=== PATIENT | female | born 1955 | race African-American/Black ===

== ENCOUNTER → 2023-06-18 13:22 | Outpatient (REF) | payer OTHER, SELFPAY | LOC: RAD 13:22 | PROVIDERS: ATTENDING PHYSICIAN Surgery Vascular Surgery; FAMILY PHYSICIAN Physician Assistant Medical | DX: I73.9 Peripheral vascular disease, unspecified (principal); I65.23 Occlusion and stenosis of bilateral carotid arteries | CPT/HCPCS: 93880; 93922; 93925 ==

== ENCOUNTER → 2023-07-16 06:42 | Outpatient (REF) | payer OTHER, SELFPAY | LOC: RCS 06:42 | PROVIDERS: ATTENDING PHYSICIAN Internal Medicine Cardiovascular Disease; FAMILY PHYSICIAN Physician Assistant Medical | DX: I70.90 Unspecified atherosclerosis (principal); R01.1 Cardiac murmur, unspecified; Z01.810 Encounter for preprocedural cardiovascular examination | CPT/HCPCS: 93306 ==

== ENCOUNTER 2023-08-01 07:28 | Inpatient (IN) | payer OTHER, SELFPAY ==
[2023-07-26 09:11] VITALS: BMI 24.0
[2023-07-26 09:47] LABS: % Basophils 1.9 % (0-2); % Eosinophils 3.7 % (0-6); % Immature Granulocytes 0.2 % (0-0.5); % Lymphocytes 45.9 % (20.5-51.1); % Monocytes 9.3 % (1.7-9.3); Absolute Basophils 0.1 10^3/uL (0-0.2); Absolute Eosinophils 0.2 10^3/uL (0-0.7); Absolute Lymphocytes 2.2 10^3/uL (1.2-3.4); Absolute Monocytes 0.5 10^3/uL (0.1-0.6); Absolute Neutrophils 1.9 10^3/uL (1.4-6.5); Hematocrit 37.3 % (37.0-47.0); Hemoglobin 11.8 g/dL (12.0-16.0); Mean Corp Hgb Conc. 31.6 g/dL (33.0-37.0); Mean Corpuscular Hgb 23.9 pg (27.0-31.0); Mean Corpuscular Volume 75.5 fL (81.0-99.0); Mean Platelet Volume 10.4 fL (7.4-10.4); Nucleated Red Blood Cells % 0 %; Platelet Count 345 10^3/uL (130-400); Red Blood Cell Count 4.94 10^6/uL (4.20-5.40); Red Cell Dist. Width 15.5 % (11.5-14.5); White Blood Cell Count 4.9 10^3/uL (4.8-10.8)
[2023-07-26 09:57] LABS: Blood Urea Nitrogen 19 mg/dl (7-17); Calcium 9.3 mg/dl (8.4-10.2); Carbon Dioxide 27 mmol/L (22-30); Chloride 107 mmol/L (98-107); Estimated Creatinine Clearance 33 ml/min; Glucose 105 mg/dl (70-99); Potassium 4.9 mmol/L (3.5-5.1); Sodium 142 mmol/L (135-145); eGFR 49.92
[2023-07-26 10:16] LABS: INR 1.02; PT 13.4 Sec (11.4-14.6)
[2023-08-01] VITALS (22 sets, daily range): BP systolic 85–177; BP diastolic 51–86; BMI 24.5
--- NOTE | 2023-08-01 08:49 | W.SUR.PREOP ---
Pre-Operative Surgical Note
-
I have examined this patient prior to the performance of the scheduled procedure.
The patient's condition is unchanged from the time of the current History and
Physical and the patient is able to undergo the scheduled procedure.
[2023-08-01] MEDS: BACTROBAN NASAL 1 GRAM NASAL (08:53)
[2023-08-01] MEDS: PERIDEX 0.12% ORAL RINSE 15 ML PO (08:53)
[2023-08-01] MEDS: VANCOCIN 200 IV (08:54)
[2023-08-01] MEDS: NSS 167 ML IV (09:02)
[2023-08-01 10:12] LABS: ACT-LR - POC 276 Seconds (116-155)
--- NOTE | 2023-08-01 11:05 | W.SUR.POST ---
Surgical Immediate Post Op
Note
Pre Op Diagnosis: Carotid stenosis
Post Op Diagnosis: Carotid stenosis
Procedure Performed: Transcarotid artery revascularization
Primary Surgeon: Efren Costello MD
fleet administrative assistant: RICHARD Snell
Anesthesia: GETA
Estimated Blood Loss: 20ml
Fluids: See anesthesia flowsheet
Drains/Shunts: N/A
Specimens/Cultures: N/A
Doppler/Duplex/Angio (Y/N): Y
Complications: None
Operative Findings: Successful deployment of carotid stent x2
[2023-08-01] MEDS: NEO-SYNEPHRINE 250 IV (11:49)
[2023-08-01] MEDS: NSS 1000 IV ×2 (11:55→23:57)
[2023-08-01 11:56] LABS: Hematocrit 32.5 % (37.0-47.0); Hemoglobin 10.1 g/dL (12.0-16.0); Mean Corp Hgb Conc. 31.1 g/dL (33.0-37.0); Mean Corpuscular Hgb 23.9 pg (27.0-31.0); Mean Platelet Volume 9.7 fL (7.4-10.4); Platelet Count 269 10^3/uL (130-400); Red Blood Cell Count 4.22 10^6/uL (4.20-5.40); Red Cell Dist. Width 15.2 % (11.5-14.5); White Blood Cell Count 3.8 10^3/uL (4.8-10.8)
[2023-08-01 12:06] LABS: Blood Urea Nitrogen 24 mg/dl (7-17); Calcium 7.8 mg/dl (8.4-10.2); Carbon Dioxide 22 mmol/L (22-30); Chloride 109 mmol/L (98-107); Estimated Creatinine Clearance 40 ml/min; Glucose 109 mg/dl (70-99); Potassium 4.4 mmol/L (3.5-5.1); Sodium 137 mmol/L (135-145); eGFR > 60.00
[2023-08-01 13:50] LABS: Magnesium 1.9 mg/dl (1.6-2.3)
--- NOTE | 2023-08-01 14:07 | PTCARENOTE ---
1250-Received pt from PACU via bed.Pt is awake and alert.speech is appropriate.Tongue is midline.+5/5 POZO noted.MARIANNA 3mm.Denies pain.Positioned for comfort.SR noted.IVF and Phenylephrine gtts infusing.Right A Line intact.POX 94% RA.Lungs
CTA.Declines po intake at this time.No void at this time.Right groin dressing intact without drainage.Left neck incision intact with surgical adhesive.Pt's spouse at bedside.Plan of care discussed.
[2023-08-01] MEDS: TYLENOL 650 MG PO (14:34)
--- NOTE | 2023-08-01 14:35 | CON.INTV ---
Documented by User: Kathy Ayala, Resident, 08/01/23 16:25
Consultation
Consultation Request
Date/Time Consultation Requested: 08/01/2023
Date/Time Consultation Performed: 08/01/2023
Requesting Provider:
Performing Provider:
Reason for Consultation: s/p Transcarotid artery revascularization
Medical History
-
Chief Complaint: s/p Transcarotid artery revascularization
History of Present Illness:
Mr.Antonell Heath is a 68-year-old female patient that is admitted for a scheduled left transcarotid artery revascularization on 08/01/2023.
Past Medical History
Past Medical History: Other (See A&P for PMH and PSH)
Social History
Tobacco: Former Smoker
Personal:
Living: With Family
Family History
Family History: CAD (Father: Cerebral aneurysm, mother: CVA)
Allergies / Home Medications
Allergies
Allergy/AdvReac Type Severity Reaction Status Date / Time
diphenhydramine HCl Allergy Rash Verified 08/01/23 08:31
[From Benadryl]
latex [Latex] Allergy Rash Verified 08/01/23 08:31
levofloxacin [From Levaquin] Allergy Shortness Verified 08/01/23 08:31
of Breath
Penicillins Allergy Shortness Verified 08/01/23 08:31
of Breath
Home Medications
�Medication �Instructions �Recorded �Confirmed �Last Taken �Type
aspirin 81 mg tablet,delayed 81 mg PO DAILY 11/13/17 08/01/23 08/01/23 07:00 History
release (Adult Low Dose Aspirin)
docusate sodium 100 mg capsule 100 mg PO DAILY PRN constipation 11/13/17 08/01/23 Unknown History
(Colace)
hydrochlorothiazide 12.5 mg capsule 12.5 mg PO DAILY 11/13/17 08/01/23 07/30/23 07:00 History
metoprolol tartrate 50 mg tablet 50 mg PO BID 11/13/17 08/01/23 08/01/23 07:00 History
spironolactone 50 mg tablet 50 mg PO DAILY 11/13/17 08/01/23 08/01/23 07:00 History
multivitamin 1 tab PO DAILY 07/24/23 08/01/23 07/25/23 07:00 History
risedronate 150 mg tablet 150 mg PO QMONTH 07/24/23 07/24/23 Unknown History
clopidogrel 75 mg tablet (Plavix) 75 mg PO DAILY 08/01/23 08/01/23 08/01/23 07:00 History
diclofenac sodium 1 % topical gel 2 g topical QID PRN leg pain 08/01/23 08/01/23 07/23/23 08:00 History
(Voltaren Arthritis Pain)
rosuvastatin 10 mg tablet 10 mg PO DAILY 08/01/23 08/01/23 08/01/23 07:00 History
Review of Systems
-
Unable to Obtain full review of systems at this time due to: Other (Negative unless stated otherwise)
Vitals / Labs / Diagnostic Testing
Vital Signs
Temp Pulse Resp BP Pulse Ox
97.5 F 62 11 125/72 98
08/01/23 13:19 08/01/23 12:30 08/01/23 12:30 08/01/23 12:30 08/01/23 14:00
Lab Data
08/01/23 11:47
08/01/23 11:47
Diagnostic Testing:
Physical Exam
-
HEENT: Normocephalic
Cardiovascular: S1/S2
Respiratory: Clear
GI: Soft, Non Distended and Non Tender
Neurology: Awake and Alert
General: Comfortable
Assessment
-
ASSESSMENT: Mr.Antonell Heath is a 68-year-old female patient that is admitted for a scheduled left transcarotid artery revascularization with stent on 08/01/2023.
IMPRESSION:
S/P left transcarotid artery revascularization with stent on 07/31
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
Hypertension (multidrug and resistant)
Hepatitis C�treated
Hypercholesterolemia
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
Lower extremity claudication
History of PRBC transfusion
Osteoarthritis
Bilateral carpal carotid artery stenosis
Hyperkalemia
PAD
Hypertensive retinopathy
Bilateral hip DJD
Thyroid nodule
Cervical spine herniation
C3-C4 fusion
PLAN:
Postop CXR: Decreased lung volume, increased trending in the medial left lung base
Normal preop spirometry 07-17-23
Chest x-ray today reviewed, no acute findings, interval extubation
O2 protocol
IS protocol
Pressors/antihypertensive/inotropes/diuretics will be provided as needed
Monitor hemoglobin
Monitor platelet count and coags
Transfuse blood product if needed
Monitor blood sugar
Insulin drip per protocol
Aspiration precautions
DVT prophylaxis
Early nutrition
Early mobilization

Documented by User: Troy Montero MD 08/02/23 07:18
Medical History
-
History of Present Illness:
Mr.Antonell Heath is a 68-year-old female patient that is admitted for a scheduled left transcarotid artery revascularization on 08/01/2023.
Received above intervention with no issue
Seen at ICU with Dr Costello
Patient recovered from anesthesia. Denies major complaints x for mild incisional L neck pain
Social History
Alcohol: None
Drug: None
Review of Systems
-
Cardiac: Other (L incisional pain)
Physical Exam
-
Cardiovascular: Murmur (n), Peripheral Edema (n) and Other (L neck surgical wound)
Respiratory: Non-Labored Respirations
Neurology: AO x 3 and No Motor Deficits
Skin: Warm
Assessment
-
ASSESSMENT:
Mrs Ángel Heath is a 68-year-old female patient that is admitted for a scheduled left transcarotid artery revascularization with stent on 08/01/2023.
IMPRESSION:
S/P left transcarotid artery revascularization with stent on 07/31
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
Hypertension (multidrug and resistant)
Hepatitis C�treated
Hypercholesterolemia
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
Lower extremity claudication
History of PRBC transfusion
Osteoarthritis
Bilateral carpal carotid artery stenosis
Hyperkalemia
PAD
Hypertensive retinopathy
Bilateral hip DJD
Thyroid nodule
Cervical spine herniation
C3-C4 fusion to
PLAN:
Postop CXR: Decreased lung volume, increased trending in the medial left lung base
Normal preop spirometry 07-17-23
Chest x-ray today reviewed, no acute findings, interval extubation after surgery
O2 protocol
IS protocol
Asp precs
Pressors/antihypertensive/inotropes/diuretics will be provided as needed
Monitor hemoglobin
Monitor platelet count and coags
Transfuse blood product if needed
Monitor blood sugar
Insulin drip per protocol
DVT prophylaxis
Early nutrition
Early mobilization
D/w Dr Costello, patient and at bedside
Critical care time: 35 min
ATTENDING PHYSICIAN ATTESTATION:
(Initial Visit:)
I personally saw and evaluated the patient along with the Resident Dr Ayala.
Discussed with Resident and discussed in rounds with MDT.
I agree with Resident�s findings and plan as documented in the resident�s note, which was edited by myself.
--- NOTE | 2023-08-01 14:43 | PTCARENOTE ---
Pt c/o slight left neck pain.Requested and received Tylenol.
--- NOTE | 2023-08-01 15:05 | PTCARENOTE ---
Pt has not voided and does not feel the need to void at this time.Bladder scanned 478 ml.Pt requested an hour to wait until she attempts to void.
--- NOTE | 2023-08-01 15:35 | OR.RPT ---
Addendum entered and electronically signed by Efren Costello MD 08/01/23 15:37:
Addendum: Fluoroscopy time 8.7 minutes, 52 mGy, DAP 8.92.
Original Note:
Operative Report
Operative Report
PROCEDURE DATE: 08/01/2023
Preoperative diagnosis: Severe heavily calcified left internal carotid artery near occlusive stenosis.
Postoperative diagnosis: same
Procedure:
1. Open exposure of left common carotid artery.
2. Transcarotid left carotid artery revascularization with stent (TCAR) with Enroute 9mm x 40mm self-expanding stent, and utilizing Enroute TIGHT ROPE WALKER flow reversal intraprocedural neuro protection (and involving concomitant right common femoral vein
percutaneous access).
3. Intraoperative EEG/SSEP monitoring.
4. Supervision and interpretation
CPT code 22722, SVS VQI TCAR #[id number]
ICD10 PCS Code [id number], [id number]
Surgeon: Pravin
Director Medical: SHERRELL Fermin required for all aspects of procedure including assistance with traction/countertraction, following of suture line, assistance with closure.
Complications: None
Anesthesia: General
Indications for procedure:
Severe progressive left internal carotid artery stenosis. Due to high bifurcation, extensive length of lesion, was very high risk for surgical revascularization from an anatomic standpoint. Therefore discussed TCAR. Risk/benefits/alternatives
were also discussed. Patient understood all wish to proceed.
Description of procedure:
Patient was identified brought to the operating room placed on the table in supine position. After the adequate administration of anesthesia and perioperative antibiotics she was prepped and draped in the standard surgical fashion. A standard
preoperative timeout was undertaken and everybody was in agreement the plan. A longitudinal incision was made at the base of the left neck between the heads of the sternocleidomastoid muscle just superior to the clavicle. This incision was carried
through the skin subcutaneous tissue. Using the electrocautery dissection was carried through the platysma muscle layer and then in the plane between the heads of the sternocleidomastoid muscle. Then using a combination of sharp dissection with
the Metzenbaum scissors and electrocautery I dissected along the anterior medial border of the internal jugular vein. The common carotid artery was identified and carefully dissected away from the surrounding structures take great care to avoid any
injury to the structures. A vessel loop was passed around it. The common carotid artery was dissected circumferentially only in the proximal portion of the exposed artery, and the anterior surface was dissected for another 2 cm. Next, a 5-0
Prolene pursestring stitch was placed on the anterior middle surface of the common carotid artery at the anticipated puncture/cannulation site. The patient was now given 5500 units of intravenous heparin.
Next, the right common femoral vein was punctured with a micropuncture kit under direct duplex ultrasound guidance. An 8 German venous sheath was placed over 0.035 inch wire into the vein. The sheath was flushed. Note fluoroscopy was used to
confirm wire advancement within the venous system.
Next, while maintaining anterior tension on the vessel loop (single looped), the left common carotid artery was punctured within the pursestring with a micropuncture needle (premarked) to only 1 cm and a premarked 0.014 inch wire was inserted and
then the needle was exchanged out for a premarked micropuncture sheath and advanced to 3 cm janeth. The dilator and wire were then removed. Left anterior oblique angiogram was performed. This delineated the carotid bifurcation. It confirmed the
severe stenosis in the proximal internal carotid artery. The carotid bifurcation was marked on the screen. I then advanced a 0.035 inch wire with a J curve at the tip. This was stopped just short of the bifurcation. I then exchanged the
micropuncture sheath out for the [address] sheath, which was advanced to the footplate under fluoroscopy with careful vigilance of the distal tip of the wire. Once advanced to the footplate, the introducer and wire were removed.
The tension from the vessel loop was released. And the sheath was secured to the skin with silk suture. The sheath was burped back and also flushed carefully. Next repeat imaging was undertaken confirming the best angulation of the gantry for
imaging. At this point, the angioplasty balloon and stent were prepared. We pause to confirm the plan regarding balloon/stent, and confirmed adequate ACT 270. Next, I connected the arterial sheath to the venous sheath with the filter section. As
such passive flow reversal was initiated. There were no evidence of any EEG or SSEP changes.
At this point given that we were otherwise ready, I tightened my double looped vessel loop on the common carotid artery thereby initiating active flow reversal. I have confirmed optimization of the blood pressure with my anesthesiology colleagues.
Glycopyrrolate had been given to mitigate any bulb angioplasty related bradycardia. Again I flushed the venous sheath to confirm active flow reversal. There was no EEG or SSEP changes. I now used a precurved 0.014 inch wire and roadmap assisted
fluoroscopy guidance to cannulate the internal carotid artery carefully. I was able to gain access into the distal cervical/proximal intracranial internal carotid artery. Next I used a balloon which was a 5 mm x 30 mm Viatrac standard angioplasty
balloon. I then pre-angioplastied the stenosis. I then quickly exchanged out my balloon catheter for the stent (9mm x 40mm Enroute stent). The stent was positioned under roadmap guidance. When I was happy with the positioning I then unsheathed
in the standard fashion. The stent delivery device was then attempted to be removed. However, I could not remove the delivery device as it was either caught on the stent or some plaque. I therefore reached sheath the delivery device. I tried
applying pressure to the neck, and then counterpressure from the other side, and then pulled fairly forcefully and was able to finally get it out. Post angioplasty was performed with a 5 mm x 20 mm angioplasty balloon. Completion angiography was
undertaken after 1 to 2 minutes of waiting after deployment of the stent for the flow reversal to take effect. Completion angiogram demonstrated excellent result in AP projection, but in the oblique projection it appeared that the stent was still
somewhat compressed which was not surprising due to the bulk of the plaque. Therefore, I then used a 6 mm x 20 mm angioplasty balloon to postangioplasty. Following this angiography demonstrated significant improvement. Good intracranial filling
was noted. At this point I was very satisfied. The 0.014 inch wire was then removed from the internal carotid artery. Next, the common carotid artery was unclamped. Finally I disconnected the flow reversal circuit.
Now, I tied down my 5-0 Prolene pursestring suture on the common carotid artery while removing the sheath. We gave protamine to reverse the heparin. I irrigated the incision site and confirmed full hemostasis. Then, we closed in layers using
single [id number] 2-0 Vicryl to reapproximate the sternocleidomastoid heads. Then used 3-0 Vicryl platysma muscle running layer followed by 4 Monocryl subcuticular running stitch. Dermabond was applied. The femoral vein sheath was also
removed and manual pressure was applied to that site and hemostasis was noted there as well. The patient tolerated the procedure well. She awoke moving all 4 extremities to command.
--- NOTE | 2023-08-01 16:09 | PTCARENOTE ---
Pt assessed.Awake and alert.SR noted.IVF and Phenylephrine gtt infusing.Pt unable to void.Fatima placed for acute retention as ordered.Draining yellow urine.
[2023-08-01] MEDS: LOPRESSOR 50 MG PO (20:57)
[2023-08-01] MEDS: HEPARIN 5000 UNITS SC (20:57)
[2023-08-02] VITALS (7 sets, daily range): BP systolic 102–153; BP diastolic 56–67; PULSE 80; BMI 24.8
[2023-08-02 05:30] LABS: Hematocrit 29.8 % (37.0-47.0); Hemoglobin 9.6 g/dL (12.0-16.0); Mean Corp Hgb Conc. 32.2 g/dL (33.0-37.0); Mean Corpuscular Hgb 23.9 pg (27.0-31.0); Mean Corpuscular Volume 74.3 fL (81.0-99.0); Mean Platelet Volume 10.1 fL (7.4-10.4); Platelet Count 293 10^3/uL (130-400); Red Blood Cell Count 4.01 10^6/uL (4.20-5.40); Red Cell Dist. Width 15.4 % (11.5-14.5); White Blood Cell Count 8.6 10^3/uL (4.8-10.8)
[2023-08-02 05:45] LABS: APTT 27.6 Sec (23.4-35.0); INR 1.19; PT 15.1 Sec (11.4-14.6)
[2023-08-02 05:46] LABS: Blood Urea Nitrogen 19 mg/dl (7-17); Calcium 8.3 mg/dl (8.4-10.2); Carbon Dioxide 18 mmol/L (22-30); Chloride 113 mmol/L (98-107); Estimated Creatinine Clearance 44 ml/min; Glucose 134 mg/dl (70-99); Potassium 4.5 mmol/L (3.5-5.1); Sodium 138 mmol/L (135-145); eGFR > 60.00
--- NOTE | 2023-08-02 07:38 | W.PN.VS ---
Addendum entered and electronically signed by Efren Costello MD 08/02/23 09:27:
Seen and examined with HSERRELL Fermin. Agree with findings as noted below. Patient without significant complaints. Left neck small incision is clean dry and intact. No hematoma. Abdomen is soft. Right groin puncture site flat, no hematoma.
Neurologically no focal deficits. Moves all extremities well. Plan/as discussed and noted below.
Original Note:
Today's Communication / Plan
-
Seen and assessed with Dr. Costello
Assessment/Plan
-
POD #1 left TCAR
Plan:
-DC A-line
-DC Fatima
-Out of bed/ambulate
-Regular diet
-Patient may DC later today if continues to do well
Subjective Data
-
Date of Service: August 02, 2023
Patient seen at bedside this a.mSamantha Costello. Patient offers no complaints at this time. No events overnight
Objective Data
-
Vital Signs
Temp Pulse Resp BP Pulse Ox
97.8 F 65 9 135/59 99
08/01/23 23:44 08/02/23 06:30 08/02/23 06:30 08/01/23 20:57 08/02/23 06:30
Intake and Output
08/01/23 08/02/23 08/03/23
06:59 06:59 06:59
Intake Total 2052.8 / 2052.8
Output Total 1773 / 1773
Balance 279.8 / 279.8
Intake:
Oral fluids 240 / 240
IV fluids (Total) 1612.8 / 1612.8
NSS 267 / 267
Nss 1,000 ml @ 80 mls/hr IV . 1280 / 1280
[id number] DARRIUS Rx#:[id number]
Phenylephrine 65.8 / 65.8
IV piggybacks 200 / 200
Output:
Urine, Fatima 177 / 177
Lab Results
08/02/23 05:07
08/02/23 05:07
Calcium 8.3 mg/dl (8.4-10.2) L 08/02/23 05:07
Magnesium 1.9 mg/dl (1.6-2.3) 08/01/23 11:47
Physical Exam
-
AAOx3
No tachypnea
No tachycardia
Neck site clean, dry, intact, soft, no drainage noted
Follows all commands
Face symmetrical, tongue midline
--- NOTE | 2023-08-02 08:07 | W.PN.INTV ---
Today's Communication / Plan
Recommendations
Dispo
Assessment
-
ASSESSMENT:
Mrs Ángel Heath is a 68-year-old female patient that is admitted for a scheduled left transcarotid artery revascularization with stent on 08/01/2023.
IMPRESSION:
S/P left transcarotid artery revascularization with stent on 07/31
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
Hypertension (multidrug and resistant)
Hepatitis C�treated
Hypercholesterolemia
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
Lower extremity claudication
History of PRBC transfusion
Osteoarthritis
Bilateral carpal carotid artery stenosis
Hyperkalemia
PAD
Hypertensive retinopathy
Bilateral hip DJD
Thyroid nodule
Cervical spine herniation
C3-C4 fusion to
PLAN:
Postop CXR: Decreased lung volume, increased trending in the medial left lung base
Normal preop spirometry 07-17-23
Chest x-ray today reviewed, no acute findings, interval extubation after surgery
O2 protocol
IS protocol
Asp precs
Pressors/antihypertensive/inotropes/diuretics will be provided as needed
Monitor hemoglobin
Monitor platelet count and coags
Transfuse blood product if needed
Monitor blood sugar
Insulin drip per protocol
DVT prophylaxis
Early nutrition
Early mobilization
D/w Dr Costello, patient and at bedside 07-31
[facility], likely to d/c today
Subjective Dataa
Subjective Data
Date of Service:
Date of Service: August 02, 2023
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
Subjective:
No major events reported overnight
Remains hemodynamically and respiratory nunn stable
Remains on room air
Denies major complaints
Looking forward to discharge today
Review of Systems
General: Fever (n), Sweats (n), Chills (n) and Satisfactory Appetite
Cardiopulmonary: Dyspnea (n), Cough (n), Wheezing (n), Chest Pain (n) and Edema (n)
GI: Abdominal Pain (n), Nausea (n) and Vomiting (n)
Neuro: Numbness (n)
Genitourinary: Hematuria (n)
Objective Data
Data Reviewed
Vital Signs / I&O / Oxygen:
Vital Signs
Temp Pulse Resp BP Pulse Ox
98.1 F 65 9 135/59 99
08/02/23 07:55 08/02/23 06:30 08/02/23 06:30 08/01/23 20:57 08/02/23 06:30
Intake and Output
08/01/23 08/02/23 08/03/23
06:59 06:59 06:59
Intake Total 2052.8 / 2052.8
Output Total 1773 / 1773
Balance 279.8 / 279.8
SaO2 99
Nasal Cannula flow liters per 2
minute
Physical Exam
General: Comfortable
HEENT: Normocephalic and Moist Mucous Membranes
Cardiovascular: Regular Rhythm, Murmur (n), Peripheral Edema (n) and Calf Tenderness (n)
Respiratory: Clear, Non-Labored Respirations and Stridor (n)
GI: Soft, Non Distended and Non Tender
Neurology: Awake, AO x 3 and No Motor Deficits
Skin: Warm
Labs/Micro/Reports
Lab Data
08/02/23 05:07
08/02/23 05:07
Laboratory Results
08/02/23 08/02/23
00:15 05:07
PT Cancelled 15.1 H
INR Cancelled 1.19
APTT Cancelled 27.6
[2023-08-02] MEDS: LOPRESSOR 50 MG PO (08:11)
[2023-08-02] MEDS: ASPIR LOW (ENTERIC COATED) 81 MG PO (08:12)
[2023-08-02] MEDS: ORETIC 12.5 MG PO (08:12)
[2023-08-02] MEDS: CRESTOR 10 MG PO (08:12)
[2023-08-02] MEDS: ALDACTONE 50 MG PO (08:12)
[2023-08-02] MEDS: HEPARIN 5000 UNITS SC (08:13)
[2023-08-02] MEDS: PLAVIX 75 MG PO (08:13)
--- NOTE | 2023-08-02 09:40 | PTCARENOTE ---
Updates with surgery in am rounds. Plan for deline, PT/OT, post [place] dc/void, am vital trends for evaluation for discharge. Updates with repair cameraman team and pharmacy in rounds. Patient delined out of bed to chair post breakfast 100% taken. Ivf
capped, tolerating po intake. Out of bed to chair with minimal assist and supervision. One point cane used. Am cares provided, denture cares provided, following teaching and patient care needs. Call schultz in reach and in use, hourly rounds ongoing.
Update vital sign trends, assessment ongoing and as documented.
--- NOTE | 2023-08-02 10:23 | PTCARENOTE ---
Update with patient family at bedside and via phone. Continue to work toward discharge plan of cares. Updated events of surgery and evening. Encourage questions continue to follow up patient and family care needs. Out fo bed to chair no c/c to
offer. Hourly rounds ongoing.
--- NOTE | 2023-08-02 12:04 | PTCARENOTE ---
Patient voided clear yellow urine. Ambulate with PT/OT length of hallway and return to room. Out of bed for lunch will follow up with vascular team. possible discharge plan of cares.
--- NOTE | 2023-08-02 12:13 | W.DS.TRANS ---
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
-
Discharge Instructions:
Discharge Diagnosis/Procedures Transcarotid left carotid artery
revascularization with stent (TCAR)
Diet As tolerated,Low Cholesterol
Activity No strenuous activity
Driving Restrictions Not until seen by your Dr
Bathing Restrictions OK to Shower
Instructions:
Stand-Alone Forms: DC Instr - Vascular OR
Changes to Home Medications: No
Discharge Medications:
DC Medications w/original date entered in [employer]
aspirin 81 mg tablet,delayed release (Adult Low Dose Aspirin) 81 mg PO DAILY Blood Clot Prevention/Tx 11/13/17
docusate sodium 100 mg capsule (Colace) 100 mg PO DAILY PRN constipation 11/13/17
hydrochlorothiazide 12.5 mg capsule 12.5 mg PO DAILY Fluid Retention/Swelling 11/13/17
metoprolol tartrate 50 mg tablet 50 mg PO BID Blood Pressure 11/13/17
spironolactone 50 mg tablet 50 mg PO DAILY Fluid Retention/Swelling 11/13/17
multivitamin 1 tab PO DAILY Supplement 07/24/23
risedronate 150 mg tablet 150 mg PO QMONTH BONE 07/24/23
clopidogrel 75 mg tablet (Plavix) 75 mg PO DAILY Blood Clot Prevention/Tx 08/01/23
diclofenac sodium 1 % topical gel (Voltaren Arthritis Pain) 2 g topical QID PRN leg pain 08/01/23
rosuvastatin 10 mg tablet 10 mg PO DAILY High Cholesterol 08/01/23
Home Medication Changes
Pending Results: No
--- NOTE | 2023-08-02 12:54 | PTOTSP ---
pt currently demonstrates ability to complete simple ADLs, functional transfers, ambulation with supervision to minimal assistance. educated pt and spouse on endurance tranining, increase activity levels to increase independence with ADLs. pt and
spouse verbalized understanding. no acute OT needs identified at this time, will sign off.
--- NOTE | 2023-08-02 13:13 | PTCARENOTE ---
Update discharge with family, vascular follow up and telephonic nurse case manager at bedside. Follow up PT/OT and visiting nursing as per case management. prep for discharge instructions and discharge plan of cares reviewed with patient and family.
--- NOTE | 2023-08-02 13:16 | CM ---
VERONICA met with Ángel and her at bedside today. They live in a 2 story home with bedroom and bathroom on the second floor. The home has grab bars, a built in bench in the shower and another shower has a shower chair.
Ángel and her share the cooking. cleaning, and other chores.
Therapy evaluation indicates need for home health services at discharge. Choice is for [facility].
Diana will be discharging to day to home with [facility].
Advance Directive provided and reviewed with Patrick and Ángel; they will discuss at home to complete the AD.
PCP: Gabriella Hammer
Pharmacy: [facility]
--- NOTE | 2023-08-02 16:02 | VNURNOTE ---
Home Health Liaison spoke with patient and spouse at 1530 to discuss [facility] nurse/therapy, visits, schedule and homebound status. Patient is agreeable and understands that visits at home will be 2-3 x per week to assess and teach medical management.
[facility] contact information provided. Patient is aware that [facility] will contact them for start of care in 1-2 days after discharge from .
[facility] referral completed in [facility].
== END 2023-08-02 13:53 | disposition home health service (06) | DRG 35 ==
LOC: ICU 07:28
PROVIDERS: Nurse Practitioner; ADMITTING PHYSICIAN Surgery Vascular Surgery; CONSULT PHYSICIAN Internal Medicine Pulmonary Disease; FAMILY PHYSICIAN Physician Assistant Medical
PROC: 037L3DZ Dilation of Left Internal Carotid Artery with Intraluminal Device, Percutaneous Approach (ICD-10-PCS; 2023-08-01)
DX: I65.23 Occlusion and stenosis of bilateral carotid arteries (principal); I50.30 Unspecified diastolic (congestive) heart failure; I12.9 Hypertensive chronic kidney disease with stage 1 through stage 4 chronic kidney disease, or unspecified chronic kidney disease; I1A.0 Resistant hypertension; E78.00 Pure hypercholesterolemia, unspecified; E87.5 Hyperkalemia; H35.039 Hypertensive retinopathy, unspecified eye; I73.9 Peripheral vascular disease, unspecified; M16.0 Bilateral primary osteoarthritis of hip; Z88.0 Allergy status to penicillin; Z88.8 Allergy status to other drugs, medicaments and biological substances; Z87.891 Personal history of nicotine dependence; Z82.49 Family history of ischemic heart disease and other diseases of the circulatory system; Z79.82 Long term (current) use of aspirin; Z79.02 Long term (current) use of antithrombotics/antiplatelets; Z86.19 Personal history of other infectious and parasitic diseases
CPT/HCPCS: 36415; 37215; 71045; 71046; 80048; 83735; 85025; 85027; 85610; 85730; 86850; 86900; 86901; 87070; 93005; 95938; 95940; 95955; 97162; 97165; C1725; C1769; C1876; C1884; C1894; Q9967

== ENCOUNTER → 2023-09-19 12:39 | Outpatient (REF) | payer OTHER, SELFPAY | LOC: RAD 12:39 | PROVIDERS: ATTENDING PHYSICIAN Registered Nurse; FAMILY PHYSICIAN Physician Assistant Medical | DX: I65.23 Occlusion and stenosis of bilateral carotid arteries (principal) | CPT/HCPCS: 93880 ==

== ENCOUNTER 2023-10-12 08:32 | Outpatient (RCR) | payer OTHER, SELFPAY | END 2023-10-12 23:59 | disposition home or self-care (01) | LOC: RPT 08:32 | PROVIDERS: ATTENDING PHYSICIAN Physician Assistant Medical; FAMILY PHYSICIAN Family Medicine | DX: I73.9 Peripheral vascular disease, unspecified (principal); I65.23 Occlusion and stenosis of bilateral carotid arteries; M62.81 Muscle weakness (generalized); Z73.6 Limitation of activities due to disability | CPT/HCPCS: 97110; 97112; 97163; 97530 ==

== ENCOUNTER 2023-11-12 11:25 | Outpatient (RCR) | payer OTHER, SELFPAY | END 2023-11-12 23:59 | disposition home or self-care (01) | LOC: RPT 11:25 | PROVIDERS: ATTENDING PHYSICIAN Physician Assistant Medical; FAMILY PHYSICIAN Family Medicine | DX: I73.9 Peripheral vascular disease, unspecified (principal); I65.23 Occlusion and stenosis of bilateral carotid arteries; M62.81 Muscle weakness (generalized); Z73.6 Limitation of activities due to disability; R26.2 Difficulty in walking, not elsewhere classified | CPT/HCPCS: 97110; 97112; 97116; 97530 ==

== ENCOUNTER 2023-11-14 11:46 | Outpatient (RCR) | payer OTHER, SELFPAY | END 2023-11-14 23:59 | disposition home or self-care (01) | LOC: RPT 11:46 | PROVIDERS: ATTENDING PHYSICIAN Physician Assistant Medical; FAMILY PHYSICIAN Family Medicine | DX: I73.9 Peripheral vascular disease, unspecified (principal); I65.23 Occlusion and stenosis of bilateral carotid arteries; M62.81 Muscle weakness (generalized); Z73.6 Limitation of activities due to disability | CPT/HCPCS: 97110; 97112 ==

== ENCOUNTER 2023-12-12 13:39 | Outpatient (RCR) | payer OTHER, SELFPAY | END 2023-12-12 23:59 | disposition home or self-care (01) | LOC: CRHB 13:39 | PROVIDERS: ATTENDING PHYSICIAN Surgery Vascular Surgery; FAMILY PHYSICIAN Family Medicine | DX: I70.213 Atherosclerosis of native arteries of extremities with intermittent claudication, bilateral legs (principal) | CPT/HCPCS: 93668 ==

== ENCOUNTER 2024-01-09 14:27 | Emergency (ER) | payer OTHER, MEDICARE, SELFPAY ==
[2024-01-09 14:42] VITALS: BP 145/82
--- NOTE | 2024-01-09 15:27 | ED.MUSCINJ ---
HPI-Injury
General
Chief Complaint: Musculo-Skeletal Complaint
Source: patient
Exam Limitations: none
Time Seen by Provider: 01/09/24 15:05
Nursing documentation reviewed up to this point in time: agreed with
History of Present Illness-Injury
Is this injury a work related problem?: No
Is pt an associate of [facility]?: No
Initial Injury comments:
Patient to ED with complaint of right great toe pain. Symptoms started 1 week ago. No history of trauma. Denies fever/chills, recent illness. No prior history of same.
Past History
Past History
ED Past Medical History: HTN, Hypercholesterolemia and Other (Hepatitis C, peripheral vascular disease)
ED Past Surgical History:
Social History
Tobacco: Non-smoker
Alcohol: None
Drug: None
Personal: Single
Living: with roommate
Employment: Employed
Family History
Family History: Other (Noncontributory)
Review of Systems
Review of Systems
Allergies reviewed?: Yes
All Other Systems: ROS reviewed and negative except as documented in HPI and ROS
Constitutional: Reports no symptoms
Musculoskeletal: Reports joint pain (Pain to DIP right great toe)
Skin: Reports no symptoms
Neurological: Reports no symptoms
Psychiatric: Reports no symptoms
Musculoskeletal Injury Exam
Musculoskeletal Injury Exam
Right Distal First Toe:
Pain with Movement?: Moderate
Tender to palpation?: Moderate
Soft tissue swelling?: None
External deformity and angulation?: None
Joint effusion?: None
Contusion?: None
Hematoma-local bleeding into tissue?: None
Strain- Sprain- Tear (Connective tissue injury)?: None
Crepitus with movement?: No
Joint instability?: No
Malalignment/deformity?: No
Range of motion: Limited
Distal skin color and temperature: normal-warm & good color
Capillary Refill: normal
Normal distal neurovascular exam?: Yes
Peripheral Pulses: posterior tibial (right): 3+ and dorsalis pedis (right): 3+
Phy Exam
General Physical Exam
General Presentation: well appearing and no apparent distress
General age: appears stated age
General Skin: warm and dry
General Habitus: normal
General Mental: alert
Musculoskeletal Exam
Musculoskeletal Exam: full ROM, neuro vasc intact and other (No redness, swelling, wounds right great toe.)
Skin Exam
Skin Exam: normal color, warm/dry and no rash
Psychiatric Exam
Psychiatric Exam: normal mood/affect
Injury Course
Orders/Labs/Results
Orders:
Orders
01/09/24 15:12
CR Foot - Right Min 3 Views Urgent
Reason For Exam: Pain right great toe
01/09/24 16:02
Cast Shoe Right-Treatment ONCE
*Critical Care Note
Total Time (30-74mins, 75-104mins- exclusive of procedures): Not Applicable
ED Attending Note
-
Portions of this chart may have been created with voice recognition software.� Occasional wrong word or��sound alike� substitutions may have occurred due to the inherent limitations of voice recognition software.
Discharge Plan
Departure
Patient Disposition: Home (Routine Discharge)
Date of Disposition: 01/09/24
Time of Disposition: 16:03
Patient with high blood pressure during this ER visit?: No
Condition: Good
Covid-19: Not Applicable
Discharge Problem:
Great toe pain
Instructions: Using Cold for Pain, Musculoskeletal Pain
Prescriptions:
No Action
aspirin [Adult Low Dose Aspirin] 81 MG tablet,delayed release (DR/EC)
81 mg PO DAILY
metoprolol tartrate 50 MG tablet
50 mg PO BID
Rx Instructions:
25 this morning
hydrochlorothiazide 12.5 MG capsule
12.5 mg PO DAILY
docusate sodium [Colace] 100 MG capsule
100 mg PO DAILY PRN (Reason: constipation)
spironolactone 50 MG tablet
50 mg PO DAILY
multivitamin Tablet
1 tab PO DAILY
risedronate 150 mg Tablet
150 mg PO QMONTH
clopidogrel [Plavix] 75 mg Tablet
75 mg PO DAILY
rosuvastatin 10 mg Tablet
10 mg PO DAILY
diclofenac sodium [Voltaren Arthritis Pain] 1 % Gel
2 g TOPICAL QID PRN (Reason: leg pain)
Referrals:
Gabriella Hammer PA-C [Family Provider] -
Activity Restrictions/Additional Instructions:
Follow up with your foot doctor as scheduled.
Interventions
Interventions:
*Risk Screen - Suicide Last Done: 01/09/24 15:36
*General Assessment Last Done: 01/09/24 15:36
*Neglect/Abuse Screening Last Done: 01/09/24 15:29
*ED COVID-19 Vaccine History Last Done: 01/09/24 15:36
*Nursing Disposition Last Done: 01/09/24 16:19
ED-Musculoskeletal Assessment Last Done: 01/09/24 15:28
Discharge Date and Time
Discharge Date/Time: 01/09/24 16:19
Print Language: ROMANIAN
[2024-01-09 16:17] VITALS: BP 132/75
== END 2024-01-09 16:19 | disposition home or self-care (01) ==
LOC: EMR 14:27
PROVIDERS: EMERGENCY PHYSICIAN Emergency Medicine; FAMILY PHYSICIAN Physician Assistant Medical
DX: M79.674 Pain in right toe(s) (principal); I10 Essential (primary) hypertension; E78.00 Pure hypercholesterolemia, unspecified; I73.9 Peripheral vascular disease, unspecified; M19.90 Unspecified osteoarthritis, unspecified site; R56.9 Unspecified convulsions; M81.0 Age-related osteoporosis without current pathological fracture; Z86.19 Personal history of other infectious and parasitic diseases; M43.22 Fusion of spine, cervical region; Z79.02 Long term (current) use of antithrombotics/antiplatelets; Z79.82 Long term (current) use of aspirin; Z87.891 Personal history of nicotine dependence; Z88.0 Allergy status to penicillin; Z88.8 Allergy status to other drugs, medicaments and biological substances; Z88.1 Allergy status to other antibiotic agents; Z91.040 Latex allergy status
CPT/HCPCS: 99283; 73630

== ENCOUNTER 2024-01-11 13:30 | Outpatient (RCR) | payer OTHER, SELFPAY | END 2024-01-11 23:59 | disposition home or self-care (01) | LOC: CRHB 13:30 | PROVIDERS: ATTENDING PHYSICIAN Surgery Vascular Surgery; FAMILY PHYSICIAN Physician Assistant Medical | DX: I70.213 Atherosclerosis of native arteries of extremities with intermittent claudication, bilateral legs (principal) | CPT/HCPCS: 93668; G0422 ==

== ENCOUNTER 2024-02-11 14:06 | Outpatient (RCR) | payer OTHER, SELFPAY | END 2024-02-11 23:59 | disposition home or self-care (01) | LOC: CRHB 14:06 | PROVIDERS: ATTENDING PHYSICIAN Surgery Vascular Surgery; FAMILY PHYSICIAN Physician Assistant Medical | DX: I70.213 Atherosclerosis of native arteries of extremities with intermittent claudication, bilateral legs (principal) | CPT/HCPCS: 93668; 93798 ==

== ENCOUNTER 2024-02-20 13:28 | Outpatient (RCR) | payer OTHER, SELFPAY | END 2024-02-22 23:59 | disposition home or self-care (01) | LOC: CRHB 13:28 | PROVIDERS: ATTENDING PHYSICIAN Surgery Vascular Surgery | DX: I70.213 Atherosclerosis of native arteries of extremities with intermittent claudication, bilateral legs (principal) | CPT/HCPCS: 93668 ==

== ENCOUNTER → 2024-04-07 11:56 | Outpatient (REF) | payer OTHER, SELFPAY | LOC: RAD 11:56 | PROVIDERS: ATTENDING PHYSICIAN Surgery Vascular Surgery; FAMILY PHYSICIAN Physician Assistant Medical | DX: I73.9 Peripheral vascular disease, unspecified (principal); I65.23 Occlusion and stenosis of bilateral carotid arteries | CPT/HCPCS: 93880; 93922; 93925 ==

== ENCOUNTER 2024-07-31 20:03 | Inpatient (IN) | payer OTHER, SELFPAY ==
[2024-07-31] VITALS (10 sets, daily range): BP systolic 133–161; BP diastolic 68–91; BMI 23.7; BMI 23.8
[2024-07-31] MEDS: NSS 500 IV (14:29)
[2024-07-31] MEDS: DILAUDID 1 MG IV (14:30)
--- NOTE | 2024-07-31 14:36 | ED.GENMED ---
History of Present Illness
General
Chief Complaint: Musculo-Skeletal Complaint
Source: patient and spouse
Time Seen by Provider: 07/31/24 14:06
History of Present Illness
History of Present Illness:
69-year-old female presents to the emergency room complaining of pain in her right great toe and right foot. Patient has been having some discomfort in this toe for some time. She was seen by a application support intern who felt that the toe itself looked okay
and she was referred to vascular surgery. She was in by Dr. Costello and a arterial duplex was ordered. This was obtained in late March. Ultrasound showed peripheral artery disease and the plan was to monitor her closely. Over the past day or so
the pain has become much more severe. She is now having difficulty walking. She rates the pain a 10 out of 10. Patient appears restless on the bed. She denies any recent injury. She denies any fever or chills.
Past History
Past History
ED Past Medical History: HTN, Hypercholesterolemia and Other (Hepatitis C, peripheral vascular disease)
ED Past Surgical History:
Social History
Tobacco: Non-smoker
Alcohol: None
Drug: None
Personal: Single
Living: with roommate
Employment: Employed
Family History
Family History: Other (Noncontributory)
Phy Exam
Physical Exam
Physical Exam:
General: Awake, Alert, Oriented X3. Appears chronically ill. Appears restless and uncomfortable due to right lower extremity pain
Vitals: unremarkable
Head: Atraumatic
Eyes: Pupils equal, EOMI
Throat: Airway intact, no exudates
Neck: Trachea midline
Lungs: Clear and equal b/l
Heart: Regular rate, no murmurs
Abd: Soft, Nontender, No pulsatile mass
Neuro: Nonfocal
Skin: Warm, dry, no rash
Extremities: Right leg feels relatively cool compared to the left. I am unable to palpate a dorsalis pedis, posterior tibial or popliteal pulse on the right. There is no pulse detectable by Doppler either. I am able to elicit Doppler posterior
tibial on the left. Right foot has some color to the toes. Capillary refill is delayed present.
Course
Orders/Labs/Results
Orders:
Orders
07/31/24 14:24
0.9% Sodium Chloride 500 ml [Nss] 500 ml IV BOLUS
HYDROmorphone [Dilaudid] 1 mg IV NOW STA
07/31/24 14:25
CT Abd Aorta Angio W/ Run Off Urgent
Comment:
Reason For Exam: right lower leg/foot pain
07/31/24 14:32
Basic Metabolic Panel Urgent
Complete Blood Count/With Diff Urgent
PTT Urgent
Prothrombin Time Urgent
07/31/24 14:44
Electrocardiogram (*1) Urgent
Reason for Study: Atrial Fibrillation
EKG- Treatment ONCE
07/31/24 14:45
Heparin 4,400 units IV NOW STA
Heparin 30779 Units/250 ml 25,000 units in 250 ml IV PER PROTOCOL
Weight to be used for heparin protocol in kilograms (kg):: 55.1
Protocol:: Vascular Surgery
PTT Goal Range to be used:: PTT 73 to 111 seconds
Order type:: Initial
INITIAL Infusion Dose (UNITS/KG/hr) & then follow protocol:: 18 units/kg/hr
Infusion Dose in UNITS/hr & then follow protocol (UNITS/hr):: 1,000
INFUSION RATE in mL/hr & then follow protocol (mL/hr):: 10
PTT less than or equal to 64 seconds:: Notify Ordering Provider. obtain orders for rate increase &
possible bolus
PTT 64.1 to 72.9 seconds:: Increase rate by 100 units/hr (+ 1 mL/hr)
PTT 73 to 111 seconds:: Target Range. No change in rate.
PTT 111.1 to 130.9 seconds:: Decrease rate by 100 units/hr (- 1 mL/hr)
PTT 131 to 199.9 seconds:: HOLD for 1 hour. Then decrease rate by 200 units/hr (- 2 mL/hr)
PTT greater than or equal to 200 seconds:: STOP INFUSION. Notify Ordering provider to obtain further orders.
Lab follow-up:: Each change, PTT q6h until 2 consecutive are therapeutic. Then PTT
daily.
Nursing to Place Non Medication Order As Directed
Physician Order: PTT 6 hours after initial start of Heparin infusion
Above order entered?: Yes
07/31/24 21:53
PTT Urgent
Abnormal Lab Results
07/31/24
14:32
Hgb 11.9 L g/dL
(12.0-16.0)
MCV 75.2 L fL
(81.0-99.0)
MCH 24.2 L pg
(27.0-31.0)
MCHC 32.2 L g/dL
(33.0-37.0)
RDW 14.6 H %
(11.5-14.5)
MPV 10.5 H fL
(7.4-10.4)
Monocytes % 9.9 H %
(1.7-9.3)
Carbon Dioxide 20 L mmol/L
(22-30)
BUN 27 H mg/dl
(7-17)
Creatinine 1.3 H mg/dL
(0.6-1.0)
Glucose 107 H mg/dl
(70-99)
07/31/24 14:32
07/31/24 14:32
Vital Signs
Initial and Last Documented VS:
Initial Vital Signs
Temp Pulse Resp BP Pulse Ox
98.2 F 99 16 161/91 97
07/31/24 13:52 07/31/24 13:52 07/31/24 13:52 07/31/24 13:52 07/31/24 13:52
Last Documented Vital Signs
Temp Pulse Resp BP Pulse Ox
98.2 F 105 14 142/68 96
07/31/24 13:52 07/31/24 18:45 07/31/24 16:15 07/31/24 18:00 07/31/24 18:45
MDM/Problems Addressed
Differential Diagnosis Includes:
Acute arterial occlusion, progression of chronic peripheral artery disease, acute foot injury like fracture
MDM/Problems Addressed:
Patient presents with significant pain right great toe and foot. Her exam does not show a cold completely on perfused extremity. However the presentation is concerning for limb ischemia. Patient appears quite uncomfortable. Analgesia ordered.
Labs and a CT angiogram with runoff ordered. Patient was evaluated by vascular surgery. CT angiogram shows progression of peripheral vascular disease but there is some residual flow so patient does not need to get the OR today. Will be admitted
on IV heparin with plan to have intervention by vascular surgery in the near future
*Radiology
Radiology exam reviewed: radiology read reviewed
*Pulse Oximetry
SaO2: 97
Oxygen Mode of Delivery: Room air
Patient hypoxic: no
*EKG
Interpretation: normal
Heart Rate: 90
Rate: normal
Rhythm: sinus
[place]: normal axis
Interval: normal interval
QRS Pattern: normal QRS
Ischemia: no ischemia
*Occup Therapist Interpretation
Rate: normal
Interpretation: normal
Rhythm: sinus
*Critical Care Note
Total Time (30-74mins, 75-104mins- exclusive of procedures): 35 mi n
comment:
Critical care statement: A total of 35 minutes of critical care time was provided for this patient. This includes management of unstable vital signs, evaluation of the patient at bedside, reviewing the patient's pertinent medical records, discussion
with consultants, review of old EKGs and review of pertinent medical records. This time with separate from time utilized to perform the aforementioned documented procedures
ED Attending Note
-
Portions of this chart may have been created with voice recognition software.� Occasional wrong word or��sound alike� substitutions may have occurred due to the inherent limitations of voice recognition software.
Discharge Plan
Departure
Patient Disposition: Admit
Date of Disposition: 07/31/24
Time of Disposition: 17:58
Admit to: IMU
Presentation/result/management discussed w/ accepting MD/DO: Hospitalist
Condition: Serious
Discharge Problem:
Critical limb ischemia of right lower extremity
Prescriptions:
No Action
aspirin [Adult Low Dose Aspirin] 81 MG tablet,delayed release (DR/EC)
81 mg PO DAILY
metoprolol tartrate 50 MG tablet
50 mg PO BID
Rx Instructions:
25 this morning
hydrochlorothiazide 12.5 MG capsule
12.5 mg PO DAILY
docusate sodium [Colace] 100 MG capsule
100 mg PO DAILYPRN PRN (Reason: constipation)
spironolactone 50 MG tablet
50 mg PO DAILY
multivitamin Tablet
1 tab PO DAILY
risedronate 150 mg Tablet
150 mg PO QMONTH
rosuvastatin 10 mg Tablet
10 mg PO DAILY
diclofenac sodium [Voltaren Arthritis Pain] 1 % Gel
0 g TOPICAL QIDPRN PRN (Reason: leg pain)
Slow Fe 137 mg (45 mg iron) Tablet Extended Release
137 mg PO DAILY
Referrals:
UNKNOWN - PT NOT,INTERVIEWE [Family Provider]
Interventions
Interventions:
*Risk Screen - Suicide Last Done: 07/31/24 13:52
*General Assessment Last Done: 07/31/24 13:52
*Neglect/Abuse Screening Last Done: 07/31/24 13:52
*ED- Fall Risk Assessment Last Done: 07/31/24 14:02
*ED COVID-19 Vaccine History Last Done: 07/31/24 14:02
ED-Musculoskeletal Assessment Last Done: 07/31/24 14:02
Discharge Date and Time
Print Language: MACEDONIAN
[2024-07-31 14:40] LABS: % Basophils 1.3 % (0-2); % Eosinophils 1.6 % (0-6); % Immature Granulocytes 0.3 % (0-0.5); % Lymphocytes 32.1 % (20.5-51.1); % Monocytes 9.9 % (1.7-9.3); % Neutrophils 54.8 % (42.2-75.2); Absolute Basophils 0.1 10^3/uL (0-0.2); Absolute Eosinophils 0.1 10^3/uL (0-0.7); Absolute Lymphocytes 2.1 10^3/uL (1.2-3.4); Absolute Monocytes 0.6 10^3/uL (0.1-0.6); Absolute Neutrophils 3.5 10^3/uL (1.4-6.5); Hemoglobin 11.9 g/dL (12.0-16.0); Mean Corp Hgb Conc. 32.2 g/dL (33.0-37.0); Mean Corpuscular Hgb 24.2 pg (27.0-31.0); Mean Corpuscular Volume 75.2 fL (81.0-99.0); Mean Platelet Volume 10.5 fL (7.4-10.4); Nucleated Red Blood Cells % 0 %; Platelet Count 382 10^3/uL (130-400); Red Blood Cell Count 4.92 10^6/uL (4.20-5.40); Red Cell Dist. Width 14.6 % (11.5-14.5); White Blood Cell Count 6.4 10^3/uL (4.8-10.8)
[2024-07-31 14:57] LABS: INR 1.06; PT 14.1 Sec (11.4-14.6)
[2024-07-31 14:58] LABS: APTT 26.3 Sec (23.4-35.0)
[2024-07-31 15:09] LABS: Blood Urea Nitrogen 27 mg/dl (7-17); Calcium 9.4 mg/dl (8.4-10.2); Carbon Dioxide 20 mmol/L (22-30); Chloride 107 mmol/L (98-107); Estimated Creatinine Clearance 30 ml/min; Glucose 107 mg/dl (70-99); Potassium 4.1 mmol/L (3.5-5.1); Sodium 140 mmol/L (135-145); eGFR 45.07
[2024-07-31] MEDS: HEPARIN 25000 UNITS/250 ML IV (15:53)
[2024-07-31] MEDS: HEPARIN 4400 UNITS IV (15:53)
--- NOTE | 2024-07-31 17:08 | CON.VAS ---
Consultation
Consultation Request
Date/Time Consultation Performed: 07/31/2024 4 PM
Performing Provider: Dr. Costello
Reason for Consultation: Right foot pain/ischemia
Medical History
-
Chief Complaint: Right foot pain
History of Present Illness:
Patient is well-known to me history of carotid stenosis status post TCAR, history of PAD and I been following in the office with conservative measures. She has had worsening rest pain to the right foot. Severely worsened last few days. But has
been going on for about 1 month total. Prompted emergency room evaluation due to worsening.
On exam/she is awake and alert. No acute distress. Breathing is unlabored. Left groin palpable femoral pulse. Right side nonpalpable femoral or distal. Feet are both warm. Right side with dependent rubor. Capillary refill present but slightly
slowed. Motor function intact. No ulcerations.
CT angiogram reviewed. She has multilevel occlusive disease. Right sided entire iliac system is occluded. Likely combination of thrombotic and plaque related. She does have plaque through those vessels so chronicity is uncertain, but compared to
his CAT scan in 2017 this is a new finding. In addition the SFA is occluded, likely combination of thrombotic and plaque related. This is also new compared to CAT scan in 2017. However her ultrasounds that she has completed as of March of this
year and even earlier for the last couple years have demonstrated ABIs in the 0.4-0.5 range. In addition they demonstrate multilevel disease with findings of occluded distal SFA and popliteal artery (therefore likely chronic occlusion) as well as
monophasic proximal waveforms suggestive of inflow disease.
Past Medical History
Past Medical History: Other (Hypertension, high cholesterol, hep C, PVD)
Past Surgical History: Other ()
Social History
Tobacco: Non-Smoker
Alcohol: None
Drug: None
Personal:
Living: With Family
Employment: Employed
Family History
Family History: Reviewed & Not Pertinent
Allergies / Home Medications
Allergy/AdvReac Type Severity Reaction Status Date / Time
diphenhydramine HCl (From Allergy Rash Verified 07/31/24 13:59
Benadryl)
latex (Latex) Allergy Rash Verified 07/31/24 13:59
levofloxacin (From Levaquin) Allergy Shortness Verified 07/31/24 13:59
of Breath
Penicillins Allergy Shortness Verified 07/31/24 13:59
of Breath
�Medication �Instructions �Recorded �Confirmed �Type
aspirin 81 mg tablet,delayed 81 mg PO DAILY Blood Clot 11/13/17 07/31/24 History
release (Adult Low Dose Aspirin) Prevention/Tx
docusate sodium 100 mg capsule 100 mg PO DAILYPRN PRN constipation 11/13/17 07/31/24 History
(Colace)
hydrochlorothiazide 12.5 mg capsule 12.5 mg PO DAILY Fluid 11/13/17 07/31/24 History
Retention/Swelling
metoprolol tartrate 50 mg tablet 50 mg PO BID Blood Pressure 11/13/17 07/31/24 History
spironolactone 50 mg tablet 50 mg PO DAILY Fluid 11/13/17 07/31/24 History
Retention/Swelling
multivitamin 1 tab PO DAILY Supplement 07/24/23 07/31/24 History
risedronate 150 mg tablet 150 mg PO QMONTH BONE 07/24/23 07/31/24 History
diclofenac sodium 1 % topical gel 0 g topical QIDPRN PRN leg pain 08/01/23 07/31/24 History
(Voltaren Arthritis Pain)
rosuvastatin 10 mg tablet 10 mg PO DAILY High Cholesterol 08/01/23 07/31/24 History
ferrous sulfate 137 mg (45 mg 137 mg PO DAILY 07/31/24 07/31/24 History
iron) tablet,extended release
(Slow Fe)
Physical Exam
Vital Signs
Temp Pulse Resp BP Pulse Ox
98.2 F 99 16 161/91 92
07/31/24 13:52 07/31/24 13:52 07/31/24 13:52 07/31/24 13:52 07/31/24 15:30
Lab Results
07/31/24 14:32
07/31/24 14:32
Physical Exam
General: No Apparent Distress
HEENT: Normocephalic and Atraumatic
Respiratory: Non Labored Respirations
Cardiac: Negative JVD
GI: Soft, Non Tender and Non Distended
Musculoskeletal: No Clubbing, No Cyanosis and No Edema
Skin: Warm
Neuro: Awake, Alert and Oriented
Psych: Calm
Assessment / Plan
-
Plan/ Likely worsened chronic PAD. Combination of subacute/chronic occlusive disease. See my CT interpretation above. At this point I am recommending revascularization for limb preservation. She has limb threatening ischemia. She needs an
inflow procedure. Would recommend inflow procedure alone and likely stage and outflow procedure only if needed. As far as inflow procedure she needs a right femoral cutdown with possible attempted thrombectomy, but most likely left to right
femoral to femoral artery bypass with concomitant left femoral endarterectomy. Discussed this with the patient and her . They were slightly taken aback, and wished to think about it. However they do understand the seriousness of the
situation and the need for revascularization for limb salvage. In the meanwhile, agree with admission, IV heparin, cardiology preop evaluation (seen by Dr. Sears and team in the outpatient setting regularly). Will plan revascularization
likely Wednesday 08/02 or Friday 08/04.
Data Reviewed
-
CT Scan: Discussed with Patient
Labs: Labs Reviewed by me
--- NOTE | 2024-07-31 17:45 | W.PN.UPDATE ---
Update Note
Progress Note Update
Seen and examined in emergency room. Patient is well-known to me history of carotid stenosis status post TCAR, history of PAD and I been following in the office with conservative measures. She has had worsening rest pain to the right foot.
Severely worsened last few days. But has been going on for about 1 month total. Prompted emergency room evaluation due to worsening.
On exam/she is awake and alert. No acute distress. Breathing is unlabored. Left groin palpable femoral pulse. Right side nonpalpable femoral or distal. Feet are both warm. Right side with dependent rubor. Capillary refill present but slightly
slowed. Motor function intact. No ulcerations.
CT angiogram reviewed. She has multilevel occlusive disease. Right sided entire iliac system is occluded. Likely combination of thrombotic and plaque related. She does have plaque through those vessels so chronicity is uncertain, but compared to
his CAT scan in 2017 this is a new finding. In addition the SFA is occluded, likely combination of thrombotic and plaque related. This is also new compared to CAT scan in 2017. However her ultrasounds that she has completed as of March of this
year and even earlier for the last couple years have demonstrated ABIs in the 0.4-0.5 range. In addition they demonstrate multilevel disease with findings of occluded distal SFA and popliteal artery (therefore likely chronic occlusion) as well as
monophasic proximal waveforms suggestive of inflow disease.
Plan/ Likely worsened chronic PAD. Combination of subacute/chronic occlusive disease. See my CT interpretation above. At this point I am recommending revascularization for limb preservation. She has limb threatening ischemia. She needs an
inflow procedure. Would recommend inflow procedure alone and likely stage and outflow procedure only if needed. As far as inflow procedure she needs a right femoral cutdown with possible attempted thrombectomy, but most likely left to right
femoral to femoral artery bypass with concomitant left femoral endarterectomy. Discussed this with the patient and her . They were slightly taken aback, and wished to think about it. However they do understand the seriousness of the
situation and the need for revascularization for limb salvage. In the meanwhile, agree with admission, IV heparin, cardiology preop evaluation (seen by Dr. Sears and team in the outpatient setting regularly). Will plan revascularization
likely Wednesday 08/02 or Friday 08/04.
--- NOTE | 2024-07-31 19:12 | HPS.HSE ---
Family Physician
-
Family Physician: INTERVIEWE UNKNOWN - PT NOT
Chief Complaint
-
Severe right foot pain
History of Present Illness
HPI
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
- reports worsening rest pain to the right foot for about 4 weeks
- severely worsened last few days
- Prompted emergency room evaluation due to worsening.
- associated with acute a difficulty walking.
- rates the pain a 10 out of 10.
- She denies any fever or chills.
Per vascular CT angiogram reviewed- multilevel occlusive disease. Right sided entire iliac system is occluded.
Medical History
Past Medical History
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
Past Surgical History: Reports Other (HX carotid stenosis status post TCAR,)
Social History
Alcohol: None
Family History
Family History: Not pertinent
Allergies / Home Medications
Allergies reflects when Allergies were last updated in [facility].
Home Medications with original date entered in [facility]
Allergy/Medication List:
Allergies
Allergy/AdvReac Type Severity Reaction Status Date / Time
diphenhydramine HCl (From Allergy Rash Verified 07/31/24 13:59
Benadryl)
latex (Latex) Allergy Rash Verified 07/31/24 13:59
levofloxacin (From Levaquin) Allergy Shortness Verified 07/31/24 13:59
of Breath
Penicillins Allergy Shortness Verified 07/31/24 13:59
of Breath
Home Medications
aspirin 81 mg tablet,delayed release (Adult Low Dose Aspirin) 81 mg PO DAILY Blood Clot Prevention/Tx 11/13/17
docusate sodium 100 mg capsule (Colace) 100 mg PO DAILYPRN PRN constipation 11/13/17
hydrochlorothiazide 12.5 mg capsule 12.5 mg PO DAILY Fluid Retention/Swelling 11/13/17
metoprolol tartrate 50 mg tablet 50 mg PO BID Blood Pressure 11/13/17
spironolactone 50 mg tablet 50 mg PO DAILY Fluid Retention/Swelling 11/13/17
multivitamin 1 tab PO DAILY Supplement 07/24/23
risedronate 150 mg tablet 150 mg PO QMONTH BONE 07/24/23
diclofenac sodium 1 % topical gel (Voltaren Arthritis Pain) 0 g topical QIDPRN PRN leg pain 08/01/23
rosuvastatin 10 mg tablet 10 mg PO DAILY High Cholesterol 08/01/23
ferrous sulfate 137 mg (45 mg iron) tablet,extended release (Slow Fe) 137 mg PO DAILY 07/31/24
Review of Systems
-
Constitutional: Reports No Symptoms
EENT: Reports No Symptoms
Respiratory: Reports No Symptoms
Cardiac: Reports No Symptoms
Abdomen/GI: Reports No Symptoms
: Reports No Symptoms
Musculoskeletal: Reports See HPI
Skin: Reports No Symptoms
Neurological: Reports No Symptoms
Endocrine: Reports No Symptoms
Hematologic/Lymphatic: Reports No Symptoms
Psych: Reports No Symptoms
Physical Exam
Vital Signs
Vital Signs
Temp Pulse Resp BP Pulse Ox
98.2 F 105 14 142/68 96
07/31/24 13:52 07/31/24 18:45 07/31/24 16:15 07/31/24 18:00 07/31/24 18:45
Physical Exam
General: No Apparent Distress and Conversant
HEENT: NormoCephalic, Anicteric and Atraumatic
Respiratory: Clear and Non Labored Respirations
Cardiac: S1/S2 and Regular Rhythm; No JVD
Breast: Deferred by me
GI: Soft, Non Tender, Non Distended and Normal Bowel Sounds
Genito-urinary: Deferred by me
Musculoskeletal: Other (Left groin palpable femoral pulse. Right side nonpalpable femoral or distal. )
Skin: Other ( Feet are both warm. Right side with dependent erythema )
Neuro: AO x 3
Psych: Calm
Laboratory Results
-
07/31/24 14:32
07/31/24 14:32
Laboratory Results
PT 14.1 Sec (11.4-14.6) 07/31/24 14:32
INR 1.06 07/31/24 14:32
APTT 26.3 Sec (23.4-35.0) 07/31/24 14:32
Data Reviewed
-
CT Scan: Report Reviewed by me
Lab Data: Labs Reviewed by me
Old Records: Reviewed
Impression/Plan
-
Relevant VS
07/31/24
13:52
Temp 98.2 F
Temp route: Oral
Pulse 99
Resp Rate 16
Blood pressure 161/91
SaO2 97
Oxygen Mode of Delivery Room air
Relevant admission Labs
08/02/23 07/31/24 07/31/24
05:07 14:32 21:53
WBC 6.4
Hgb 9.6 L 11.9 L
Plt Count 293 382
APTT Pending
Potassium 4.1
Chloride 107
Carbon Dioxide 20 L
BUN 27 H
Creatinine 0.9 1.3 H
eGFR > 60.[address] angiogram per Vas :
- multilevel occlusive disease.
- Right sided entire iliac system is occluded. Likely combination of thrombotic and plaque related.
- have plaque through those vessels so chronicity is uncertain, but compared to his CAT scan in 2017 this is a new finding.
- In addition the SFA is occluded, likely combination of thrombotic and plaque related - new compared to CAT scan in 2017.
Prior Duplex US in March 2024 per Vas:
- ABIs in the 0.4-0.5 range.
- In addition they demonstrate multilevel disease with findings of occluded distal SFA and popliteal artery (therefore likely chronic occlusion) as well as monophasic proximal waveforms suggestive of inflow disease.
NO PRIOR hospitalist admission:
ASSESSMENT & PLAN
Pending Rx reconciliation
Progressive and acute worsening of ischemic Rt foot pain now at rest
Clinically pregangrenous Rt foot with rest pain due to limb threatening ischemia
Likely worsened chronic PAD. Combination of subacute/chronic occlusive disease.
Associated with CTA evidence of multilevel occlusive disease
- Occluded Right sided entire iliac system
- In addition the SFA is occluded
- Vacuolar suggests revascularization for limb preservation.
- Detailed vascular surgical procedure was d/w Surgeon, patient and son
- family acknowledged the seriousness of the situation and the need for revascularization for limb salvage.
- Pending patient and family consent for vascular OR procedure
- Pending revascularization likely Wednesday 08/02 or Friday 08/[address] Costello
- Heparin gtt and ASA
- DCA Card preop evaluation (seen by Dr. Sears and team in the outpatient setting regularly).
ANGEL - contrast nephropathy vs NSAID use
- IV NS and trend Cr in AM
- Hold Diclofenac qid PRN
- Nephro consult ( Known to Dr Mccullough)
HX carotid stenosis status post TCAR
Benign HTN o n HCTX and Metoprolol tartrate , spironolactone
HLD on Rosuvastatin
DVT Px: on Heparin gtt
Code: Full
IP TLM
[2024-07-31 21:04] LABS: Glucose - Point of Care 109 mg/dl (70-99)
[2024-07-31] MEDS: NSS 1000 IV (21:11)
[2024-07-31] MEDS: DILAUDID 0.5 MG IV (22:14)
[2024-07-31 22:59] LABS: APTT 138.6 Sec (23.4-35.0)
--- NOTE | 2024-07-31 23:23 | PTCARENOTE ---
20:30 pt rec;vd from ER with heparin drip infusing via RAC at 10u, left f/a IV established IVF infusing at 60ml/hr, pt oriented unit.
[2024-08-01 03:00] VITALS: BP 143/84
[2024-08-01 05:37] LABS: APTT 64.3 Sec (23.4-35.0)
[2024-08-01 06:00] VITALS: BMI 23.9
[2024-08-01 07:00] VITALS: BP 153/82
[2024-08-01 07:15] LABS: Hematocrit 32.7 % (37.0-47.0); Hemoglobin 10.5 g/dL (12.0-16.0); Mean Corp Hgb Conc. 32.1 g/dL (33.0-37.0); Mean Corpuscular Hgb 24.4 pg (27.0-31.0); Mean Platelet Volume 11.1 fL (7.4-10.4); Platelet Count 347 10^3/uL (130-400); Red Cell Dist. Width 14.6 % (11.5-14.5); White Blood Cell Count 6.9 10^3/uL (4.8-10.8)
[2024-08-01 07:39] LABS: ALT (SGPT) 17 U/L (0-35); AST (SGOT) 26 U/L (14-36); Alkaline Phosphatase 64 U/L (38-126); Blood Urea Nitrogen 25 mg/dl (7-17); Calcium 9.1 mg/dl (8.4-10.2); Carbon Dioxide 18 mmol/L (22-30); Chloride 113 mmol/L (98-107); Estimated Creatinine Clearance 36 ml/min; Glucose 114 mg/dl (70-99); HDL Cholesterol 58 mg/dl; LDL Cholesterol, Calculated 47 mg/dl; Potassium 4.2 mmol/L (3.5-5.1); Sodium 140 mmol/L (135-145); Total Bilirubin 0.8 mg/dl (0.2-1.3); Total Cholesterol 120 mg/dl (50-199); Total Protein 7.4 g/dl (6.3-8.2); Triglyceride 75 mg/dl (10-149); Very Low Density Lipoprotein 15 mg/dl (0-30); eGFR 55.07
[2024-08-01] MEDS: FEOSOL 325 MG PO (08:13)
[2024-08-01] MEDS: ASPIR LOW (ENTERIC COATED) 81 MG PO (08:13)
[2024-08-01] MEDS: DILAUDID 0.5 MG IV ×3 (08:14→23:32)
[2024-08-01] MEDS: CRESTOR 10 MG PO (08:14)
--- NOTE | 2024-08-01 08:24 | CON.CAR ---
Addendum entered and electronically signed by Parish Stanford MD 08/01/24 15:55:
I saw and examined the patient.
The Sports Director's note was reviewed and I agree with the note.
Comment: Briefly, 69-year-old woman past medical history of hypertension, hyperlipidemia, CKD and PAD who presents with worsening right lower extremity pain concerning for limb threatening ischemia. She is planned for revascularization with
vascular surgery and we are asked to comment.
Planned for fem- fem bypass in the next few days
Not experiencing any cardiac symptoms
Echo 2023 reviewed with normal LV function no high-grade valve disease
Pharmacologic nuclear stress test from 2023 without evidence of ischemia
Patient is not at prohibitive risk to proceed with surgery
No further cardiac testing necessary at this time
Original Note:
Consultation
Consultation Request
Date/Time Consultation Requested: 07/31/2024
Date/Time Consultation Performed: 08/01/2024
Requesting Provider: Dr Davis
Performing Provider: RICHARD Kunz for Dr Stanford
Reason for Consultation: pre-op vascular surgery
Medical History
-
Chief Complaint: Right foot pain
History of Present Illness:
69-year-old female with history of hypertension, hyperlipidemia, carotid stenosis status post left carotid stent 07/2023, peripheral arterial disease which has been treated with conservative management,CKD, who presented to ED 07/31/2024 with
worsening rest pain to the right foot for past month but severely worse for past few days.
Had CT angiogram showing multilevel occlusive disease with right sided entire iliac system occluded likely combination of thrombotic and plaque related, compared to CT scan 2017, new finding. Also has occlusion of SFA also new compared to 2017.
Symptoms thought to be due to worsening chronic PAD as combination of subacute/chronic occlusive disease. Revascularization for limb preservation has been advised and tentative plan for surgery Sunday morning, 08/04/2024. Started on heparin drip.
Cardiology is consulted for cardiac risk stratification.
Labs: 08/01/2024: BUN/creatinine 25/1.1, NA 140, K4.2, total cholesterol 120, LDL 47, HDL 58, triglyceride 75, hemoglobin 10.5
Patient denies chest pain, shortness of breath, palpitations, lightheadedness, syncope.
She is able to walk up and down 16 steps in her home without symptoms of chest pain or shortness of breath.
Her activity has decreased over the past few weeks due to foot pain.
Hypertension managed with metoprolol, HCTZ, and spironolactone.
LDL 47 on rosuvastatin 10 mg daily.
Lexiscan nuclear stress test 07/19/2023 showing normal perfusion imaging and LVEF 70%
Echo 07/2023: Small LV size, normal wall thickness and LVEF 62%, normal RV size and function, no AI, mild TR, PAP 31 mm
Past medical history:
Hypertension
Hyperlipidemia
Carotid stenosis status post left carotid stent 07/2023
PAD
Former smoker
Lower extremity claudication
Osteoarthritis
Stage 3 CKD
Hypertensive retinopathy
Bilateral hip DJD
Thyroid
Cervical spine herniation
Past Medical History
Past Medical History: Other (As above in HPI)
Past Surgical History: Other (Left TCAR, Dr. Costello 08/01/2023, C3-C4 fusion 03/2021)
Social History
Tobacco: Former Smoker
Alcohol: None
Drug: None
Personal:
Living: With Family
Family History
Family History: Other (Father with cerebral aneurysm, 44 years old, mother 79 years old hypertension, CVA, brother of cancer)
Allergies / Home Medications
Allergy/AdvReac Type Severity Reaction Status Date / Time
diphenhydramine HCl (From Allergy Rash Verified 07/31/24 13:59
Benadryl)
latex (Latex) Allergy Rash Verified 07/31/24 13:59
levofloxacin (From Levaquin) Allergy Shortness Verified 07/31/24 13:59
of Breath
Penicillins Allergy Shortness Verified 07/31/24 13:59
of Breath
�Medication �Instructions �Recorded �Confirmed �Type
aspirin 81 mg tablet,delayed 81 mg PO DAILY Blood Clot 11/13/17 07/31/24 History
release (Adult Low Dose Aspirin) Prevention/Tx
docusate sodium 100 mg capsule 100 mg PO DAILYPRN PRN constipation 11/13/17 07/31/24 History
(Colace)
hydrochlorothiazide 12.5 mg capsule 12.5 mg PO DAILY Fluid 11/13/17 07/31/24 History
Retention/Swelling
metoprolol tartrate 50 mg tablet 50 mg PO BID Blood Pressure 11/13/17 07/31/24 History
spironolactone 50 mg tablet 50 mg PO DAILY Fluid 11/13/17 07/31/24 History
Retention/Swelling
multivitamin 1 tab PO DAILY Supplement 07/24/23 07/31/24 History
risedronate 150 mg tablet 150 mg PO QMONTH BONE 07/24/23 07/31/24 History
diclofenac sodium 1 % topical gel 0 g topical QIDPRN PRN leg pain 08/01/23 07/31/24 History
(Voltaren Arthritis Pain)
rosuvastatin 10 mg tablet 10 mg PO DAILY High Cholesterol 08/01/23 07/31/24 History
ferrous sulfate 137 mg (45 mg 137 mg PO DAILY 07/31/24 07/31/24 History
iron) tablet,extended release
(Slow Fe)
Review of Systems
-
History Source: Patient
All other systems: Negative unless noted
Physical Exam
Vital Signs
Temp Pulse Resp BP Pulse Ox
98.2 F 92 18 153/82 97
08/01/24 07:00 08/01/24 07:00 08/01/24 07:00 08/01/24 07:00 08/01/24 07:00
Lab Results
08/01/24 06:36
08/01/24 06:36
GEN: No distress, awake, Ox3
HEENT: supple, anicteric, mmm
LUNGS: CTA, no wheezes/rales
CV: Reg, S1/S2, no murmur
ABD: soft, BS+, NT/ND
EXT: No edema
NEURO: Gross non-focal
SKIN: No rash
Impression / Plan
-
PCP: Gabriella Hammer
Primary boarder hand: Randa Sears MD
Impression:
PAD with critical limb ischemia right lower extremity
Hypertension
Hyperlipidemia
Carotid stenosis status post left carotid stent 07/2023
Stage 3 CKD
Previous cardiovascular testing:
Lexiscan nuclear stress test 07/19/2023 showing normal perfusion imaging and LVEF 70%
Echo 07/2023: Small LV size, normal wall thickness and LVEF 62%, normal RV size and function, no AI, mild TR, PAP 31 mm
Plan:
-69-year-old female with history of hypertension, hyperlipidemia, carotid stenosis status post left carotid stent 07/2023, peripheral arterial disease which has been treated with conservative management, who presented to ED 07/31/2024 with worsening
rest pain to the right foot for past month, found to have multilevel occlusive disease with right sided entire iliac system occluded likely combination of thrombotic and plaque related, as well as occlusion of right SFA. Revascularization for limb
preservation has been advised and tentative plan for surgery Sunday morning, 08/04/2024. Plan for right femoral cutdown with possible attempted thrombectomy, most likely left to right femoral to femoral artery bypass with con commitment left
femoral endarterectomy. Cardiology is consulted for cardiac risk stratification.
Nuclear stress test 07/2023 without ischemia
Echocardiogram 07/2023 with normal RV/LV size and function with no significant valvular heart disease
EKG 07/31/2024: Normal sinus rhythm, no ST-T wave abnormalities
Telemetry personally reviewed, normal sinus rhythm/sinus tachycardia 90 to 110 bpm, 10 beat atrial run
She will be undergoing a high risk surgery and has intermediate predictors of increased cardiovascular risk.
She has no anginal or heart failure symptoms
She is euvolemic on exam.
Ischemic evaluation 1 year ago negative. LV function normal.
Able to achieve at least 4 METS of activity without chest pain/shortness of breath
Continue usual antihypertensives including beta-isabel. Start her usual metoprolol tartrate 50 mg twice daily. Preop use of spironolactone and HCTZ to be decided by renal who is also consulted.
She is at increased but acceptable risk to proceed with limb preserving vascular surgery.
Data Reviewed
-
EKG: Tracing Personally Visualized and interpreted
Medical Tests (Nuc Med, Echo etc): Image Personally Visualized and interpreted
Labs: Labs Reviewed by me
--- NOTE | 2024-08-01 09:37 | W.PN.UPDATE ---
Update Note
Progress Note Update
Patient seen at bedside this a.m. Patient states her foot feels much better this morning. She states that since starting heparin drip she has not had too many symptoms. She states that her and her are in agreement and would like to move
forward with bypass surgery. Will schedule this for 08/04/2024.
Patient will need cardiac optimization, patient states she sees Dr. Velazquez single-lead as outpatient.
N.p.o. after midnight for Sunday morning. Heparin drip may continue and be discontinued telephone lines repairer to OR Sunday.
--- NOTE | 2024-08-01 11:04 | CM ---
CM following re: discharge planning.
Reviewed pt's chart, met with pt.
Pt is a 69 year old female, admitted with primary dx of Severe right foot pain. Per Surgery, plan os for Bypass surgery on Sunday. Pt is aware.
Pt reports she lives with spouse 2SH, no steps to enter, has no children. Pt reports she ambulates with a walker at baseline, known to [facility]. Pt expressed her desire to return back home at discharge with [facility] and family support.
PT and OT will evaluate the pt after the surgery to determine a level of care at discharge.
PCP: Gabriella Morales
Pharmacy: [facility]
D/c plan: most likely home with [facility] and family support.
CM will follow with discharge plan updates as hospitalization progresses.
[2024-08-01 11:21] VITALS: BP 160/80
--- NOTE | 2024-08-01 11:26 | W.CON.NEPH ---
Consultation
-
Date/Time Consultation Requested: 07/31/24 2221
Date/Time Consultation Performed: 08/01/24 1045
Requesting Provider: Thanh Merino
Performing Provider: Maite Lima
Reason for Consultation: CKD
Medical History
-
Chief Complaint: Right foot pain
History of Present Illness:
69F with PMH of Hypertension hyperaldo state, maintained on spironolactone, hydrochlorothiazide, metoprolol, ischemic nephropathy stage IIIa CK D Baseline creatinine 1.1-1.[address] Mccullough , hyperlipidemia on statin, peripheral vascular
disease followed closely with Dr Costello for chr Rt foot ischemic pain,Increasing symptoms for last 4 weeks. She saw podiatry this week and saw vascular. However her symptoms increased with the pain and swelling, discoloration and hence presented to
the ER on 07/31. CT angiogram shows progressive vascular disease, new occlusion of right external iliac artery and complete occlusion of the right superficial femoral artery.
Occlusion of left SFA. Plan of bypass on 08/04. Nephrology was asked to follow with the frequent contrast exposures with CKD.
She denies any fever. No chest pain or shortness of breath. No nausea or vomiting or abdominal pain. No diarrhea or constipation. Denies any dysuria.
Past Medical History
Hypertension, hyperaldo
CKD3
Hepatitis C treated
Hyperlipidemia
peripheral vascular disease
Osteoarthritis
Bilateral carotid artery stenosis
Hyperkalemia
Hypertensive retinopathy
Cervical spine herniation
Past Surgical History: Other ( �2, dental extraction, C3-C4 fusion in 2021, left TCAR 07/2023)
Social History
Tobacco: Former Smoker ( at age of 60, gritty cigarettes 2018)
Alcohol: None
Living: With Family
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
Family History
father age of 44 with cerebral aneurysm.
Mother age of 79 with hypertension, stroke.
Brother of cancer
Family History: Not Pertinent
Allergies / Home Medications
Allergy/AdvReac Type Severity Reaction Status Date / Time
diphenhydramine HCl (From Allergy Rash Verified 07/31/24 13:59
Benadryl)
latex (Latex) Allergy Rash Verified 07/31/24 13:59
levofloxacin (From Levaquin) Allergy Shortness Verified 07/31/24 13:59
of Breath
Penicillins Allergy Shortness Verified 07/31/24 13:59
of Breath
�Medication �Instructions �Recorded �Confirmed �Type
aspirin 81 mg tablet,delayed 81 mg PO DAILY Blood Clot 11/13/17 07/31/24 History
release (Adult Low Dose Aspirin) Prevention/Tx
docusate sodium 100 mg capsule 100 mg PO DAILYPRN PRN constipation 11/13/17 07/31/24 History
(Colace)
hydrochlorothiazide 12.5 mg capsule 12.5 mg PO DAILY Fluid 11/13/17 07/31/24 History
Retention/Swelling
metoprolol tartrate 50 mg tablet 50 mg PO BID Blood Pressure 11/13/17 07/31/24 History
spironolactone 50 mg tablet 50 mg PO DAILY Fluid 11/13/17 07/31/24 History
Retention/Swelling
multivitamin 1 tab PO DAILY Supplement 07/24/23 07/31/24 History
risedronate 150 mg tablet 150 mg PO QMONTH BONE 07/24/23 07/31/24 History
diclofenac sodium 1 % topical gel 0 g topical QIDPRN PRN leg pain 08/01/23 07/31/24 History
(Voltaren Arthritis Pain)
rosuvastatin 10 mg tablet 10 mg PO DAILY High Cholesterol 08/01/23 07/31/24 History
ferrous sulfate 137 mg (45 mg 137 mg PO DAILY 07/31/24 07/31/24 History
iron) tablet,extended release
(Slow Fe)
Review of Systems
-
All other systems: Negative unless noted
Physical Exam
Vital Signs
Vital Signs
Temp Pulse Resp BP Pulse Ox
98.0 F 95 18 160/80 96
08/01/24 11:21 08/01/24 11:21 08/01/24 11:21 08/01/24 11:21 08/01/24 11:21
Lab Results
WBC 6.9 10^3/uL (4.8-10.8) 08/01/24 06:36
RBC 4.30 10^6/uL (4.20-5.40) 08/01/24 06:36
Hgb 10.5 g/dL (12.0-16.0) L 08/01/24 06:36
Hct 32.7 % (37.0-47.0) L 08/01/24 06:36
Plt Count 347 10^3/uL (130-400) 08/01/24 06:36
Sodium 140 mmol/L (135-145) 08/01/24 06:36
Potassium 4.2 mmol/L (3.5-5.1) 08/01/24 06:36
Chloride 113 mmol/L (98-107) H 08/01/24 06:36
Carbon Dioxide 18 mmol/L (22-30) L 08/01/24 06:36
BUN 25 mg/dl (7-17) H 08/01/24 06:36
Creatinine 1.1 mg/dL (0.6-1.0) H 08/01/24 06:36
eGFR 55.07 08/01/24 06:36
Glucose 114 mg/dl (70-99) H 08/01/24 06:36
Calcium 9.1 mg/dl (8.4-10.2) 08/01/24 06:36
Albumin 4.0 g/dl (3.5-5.0) 08/01/24 06:36
Physical Exam
General: Awake, Alert, Oriented, AOx3, No Distress and Nontoxic
HEENT: Anicteric, Conjunctivae Clear, Ear/Nose Intact and Facial Symmetry
Respiratory: Clear, Normal Excursion and Nonlabored Respirations
Cardiac: S1/S2 and Regular Rate/Rhythm
Abdomen: Soft, Nontender and Nondistended
Musculoskeletal: No Edema and Other ( right great toe and distal foot discoloration noted with the mild swelling)
Skin: No Rash
Neuro: Nonfocal/Grossly Intact
Psych: Mood/afflect pleasant, Insight/judgement good and Appropriate
Assessment/Plan
-
IMP:
Progressive and acute worsening of ischemic Rt foot pain now at rest -CLI
chronic PAD
CKD [id number]- baseline cr 1.1-1.3 Dr Mccullough
Non gap met acdiosis
HX carotid stenosis status post TCAR
HTN Hyperaldo state
HLD
OA
hep c treated
Plan:
A/w right CLI s/p CT angio on 07/31
CKD-cr seem to be stable at baseline
currently on IVF, if po intake is adequate ok to d/c IVF
Bp high- ok to resume home meds
monitor met acidosis, if persists add po bicarb
noted tentative OR on 08/04
d/w pt and
[2024-08-01 11:56] LABS: APTT 91.1 Sec (23.4-35.0)
--- NOTE | 2024-08-01 12:07 | W.PN.HOSP.TC ---
Today's Communication/Plan
-
Monitor vital signs see plan
Continue with IV heparin, aspirin
Monitor renal function
Assessment / Plan
Assessment / Plan
General: No Apparent Distress and Conversant
HEENT: NormoCephalic, Anicteric and Atraumatic
Respiratory: Clear and Non Labored Respirations
Cardiac: S1/S2 and Regular Rhythm; No JVD
GI: Soft, Non Tender, Non Distended and Normal Bowel Sounds
Musculoskeletal: Other (Left groin palpable femoral pulse. Right side nonpalpable femoral or distal. )
Neuro: AO x 3
Psych: Calm
Progressive and acute worsening of ischemic Rt foot pain now at rest
Clinically pregangrenous Rt foot with rest pain due to limb threatening ischemia
Likely worsened chronic PAD. Combination of subacute/chronic occlusive disease.
Associated with CTA evidence of multilevel occlusive disease
- Occluded Right sided entire iliac system
- In addition the SFA is occluded
- Vacuolar suggests revascularization for limb preservation.
- family acknowledged the seriousness of the situation and the need for revascularization for limb salvage.
- Pending patient and family consent for vascular OR procedure
- Pending revascularization likely Wednesday 08/02 or Friday 08/[address] Costello
- cw Heparin gtt and ASA
- DCA Card preop evaluation (seen by Dr. Sears and team in the outpatient setting regularly).
ANGEL - contrast nephropathy vs NSAID use
- IV NS and trend Cr in AM
- Hold Diclofenac qid PRN
- Nephro consult ( Known to Dr Mccullough)
HX carotid stenosis status post TCAR
Benign HTN o n HCTX and Metoprolol tartrate , spironolactone
HLD on Rosuvastatin
DVT Px: on Heparin gtt
Code: Full
Anticipated Discharge: > 48 hours
Subjective/Interval History
-
Date of Service: August 01, 2024
denies nausea
Objective Data
-
Labs:
Laboratory Results
08/01/24 08/01/24 08/01/24
05:08 06:36 11:34
WBC 6.9
Hgb 10.5 L
Hct 32.7 L
Plt Count 347
APTT 64.3 H 91.1 H
Sodium 140
Potassium 4.2
Chloride 113 H
Carbon Dioxide 18 L
BUN 25 H
Creatinine 1.1 H
Glucose 114 H
Calcium 9.1
Total Bilirubin 0.8
AST 26
ALT 17
Alkaline Phosphatase 64
08/01/24
17:30
WBC
Hgb
Hct
Plt Count
APTT Pending
Sodium
Potassium
Chloride
Carbon Dioxide
BUN
Creatinine
Glucose
Calcium
Total Bilirubin
AST
ALT
Alkaline Phosphatase
Vital Signs:
Vital Signs
Temp Pulse Resp BP Pulse Ox
98.0 F 95 18 160/80 96
08/01/24 11:21 08/01/24 11:21 08/01/24 11:21 08/01/24 11:21 08/01/24 11:21
I&O
07/31/24 08/01/24 08/02/24
06:59 06:59 06:59
Intake Total 900 / 900
Output Total 400 / 400
Balance 500 / 500
[2024-08-01] MEDS: LOPRESSOR 25 MG PO (13:19)
[2024-08-01] MEDS: NSS 1000 IV (14:25)
[2024-08-01 15:30] VITALS: BP 121/66
[2024-08-01] MEDS: ALDACTONE 50 MG PO (15:39)
[2024-08-01 18:13] LABS: APTT 106.9 Sec (23.4-35.0)
[2024-08-01 19:00] VITALS: BP 156/86
[2024-08-01] MEDS: HEPARIN 25000 UNITS/250 ML IV (19:24)
[2024-08-01] MEDS: LOPRESSOR 50 MG PO (19:28)
[2024-08-01 23:42] VITALS: BP 133/75
[2024-08-02 03:11] VITALS: BP 138/77
[2024-08-02 07:05] VITALS: BMI 24.1
[2024-08-02 07:15] VITALS: BP 131/61
[2024-08-02 07:21] LABS: % Basophils 1.4 % (0-2); % Eosinophils 3.8 % (0-6); % Immature Granulocytes 0.2 % (0-0.5); % Lymphocytes 29.6 % (20.5-51.1); % Monocytes 11.3 % (1.7-9.3); % Neutrophils 53.7 % (42.2-75.2); Absolute Basophils 0.1 10^3/uL (0-0.2); Absolute Eosinophils 0.3 10^3/uL (0-0.7); Absolute Lymphocytes 1.9 10^3/uL (1.2-3.4); Absolute Monocytes 0.7 10^3/uL (0.1-0.6); Absolute Neutrophils 3.5 10^3/uL (1.4-6.5); Hematocrit 32.1 % (37.0-47.0); Hemoglobin 10.2 g/dL (12.0-16.0); Mean Corp Hgb Conc. 31.8 g/dL (33.0-37.0); Mean Corpuscular Hgb 24.1 pg (27.0-31.0); Mean Corpuscular Volume 75.7 fL (81.0-99.0); Mean Platelet Volume 10.7 fL (7.4-10.4); Nucleated Red Blood Cells % 0 %; Platelet Count 325 10^3/uL (130-400); Red Blood Cell Count 4.24 10^6/uL (4.20-5.40); Red Cell Dist. Width 14.8 % (11.5-14.5); White Blood Cell Count 6.6 10^3/uL (4.8-10.8)
[2024-08-02] MEDS: ORETIC 12.5 MG PO (07:34)
[2024-08-02] MEDS: CRESTOR 10 MG PO (07:34)
[2024-08-02] MEDS: ASPIR LOW (ENTERIC COATED) 81 MG PO (07:34)
[2024-08-02] MEDS: LOPRESSOR 50 MG PO ×2 (07:34→20:33)
[2024-08-02] MEDS: FEOSOL 325 MG PO (07:34)
[2024-08-02] MEDS: ALDACTONE 50 MG PO (07:34)
[2024-08-02] MEDS: SENOKOT-S 1 TABLET PO ×2 (08:26→20:33)
[2024-08-02 08:29] LABS: APTT 178.8 Sec (23.4-35.0)
[2024-08-02 10:21] LABS: Blood Urea Nitrogen 17 mg/dl (7-17); Carbon Dioxide 19 mmol/L (22-30); Chloride 111 mmol/L (98-107); Estimated Creatinine Clearance 44 ml/min; Glucose 114 mg/dl (70-99); Potassium 4.3 mmol/L (3.5-5.1); Sodium 137 mmol/L (135-145); eGFR > 60.00
[2024-08-02 10:39] LABS: Calcium 8.9 mg/dl (8.4-10.2)
--- NOTE | 2024-08-02 10:42 | W.PN.NEPH.PH ---
Today's Communication / Plan
-
observe, prophylactic bicarb IVF on 08/04
Assessment/Plan
-
IMP:
Progressive and acute worsening of ischemic Rt foot pain now at rest -CLI
chronic PAD
CKD [id number]- baseline cr 1.1-1.3 Dr Mccullough
Non gap met acdiosis
HX carotid stenosis status post TCAR
HTN Hyperaldo state
HLD
OA
hep c treated
Plan:
A/w right CLI s/p CT angio on 07/31
CKD-cr seem to be stable at baseline
Bp high- on home meds
monitor met acidosis, stable
noted tentative OR on 08/04, likely need bicarb IVF for PPX
on heparin gtt
d/w pt
-
-
Date of Service: August 02, 2024
CC / HPI / ROS
-
Chief Complaint:
CKD, HTN
History of Present Illness:
cr stbale better than baseline 0.9
BP stable
hb 10 range on heparin gtt
Review of Systems:
no cp or sob
right foot pain better
Labs
-
Labs:
WBC 6.6 10^3/uL (4.8-10.8) 08/02/24 06:57
RBC 4.24 10^6/uL (4.20-5.40) 08/02/24 06:57
Hgb 10.2 g/dL (12.0-16.0) L 08/02/24 06:57
Hct 32.1 % (37.0-47.0) L 08/02/24 06:57
Plt Count 325 10^3/uL (130-400) 08/02/24 06:57
Sodium 137 mmol/L (135-145) 08/02/24 06:57
Potassium 4.3 mmol/L (3.5-5.1) 08/02/24 06:57
Chloride 111 mmol/L (98-107) H 08/02/24 06:57
Carbon Dioxide 19 mmol/L (22-30) L 08/02/24 06:57
BUN 17 mg/dl (7-17) 08/02/24 06:57
Creatinine 0.9 mg/dL (0.6-1.0) 08/02/24 06:57
eGFR > 60.00 08/02/24 06:57
Glucose 114 mg/dl (70-99) H 08/02/24 06:57
Calcium 8.9 mg/dl (8.4-10.2) 08/02/24 06:57
Albumin 4.0 g/dl (3.5-5.0) 08/01/24 06:36
Physical Exam
-
Vital Signs:
Vital Signs
Temp Pulse Resp BP Pulse Ox
98.6 F 76 18 131/61 97
08/02/24 07:15 08/02/24 07:15 08/02/24 07:15 08/02/24 07:15 08/02/24 07:15
Cardiovascular:: Regular rate and rhythm
Respiratory:: Bilateral: CTA
Lung Excursion:: Normal
Abdomen:: Nontender and Soft
Extremity Edema:: None: Bilateral:
Fatima Catheter: No
[2024-08-02 11:10] VITALS: BP 136/70
--- NOTE | 2024-08-02 11:14 | W.PN.HOSP.TC ---
Today's Communication/Plan
-
monitor vitals
see plan
cw hep gtt
plan for OR sunday per vascular
Assessment / Plan
Assessment / Plan
General: No Apparent Distress and Conversant
HEENT: NormoCephalic, Anicteric and Atraumatic
Respiratory: Clear and Non Labored Respirations
Cardiac: S1/S2 and Regular Rhythm; No JVD
GI: Soft, Non Tender, Non Distended and Normal Bowel Sounds
Musculoskeletal: left foot cooler compared to right
Neuro: AO x 3
Psych: Calm
Progressive and acute worsening of ischemic Rt foot pain now at rest
Clinically pregangrenous Rt foot with rest pain due to limb threatening ischemia
Likely worsened chronic PAD. Combination of subacute/chronic occlusive disease.
Associated with CTA evidence of multilevel occlusive disease
- Occluded Right sided entire iliac system
- In addition the SFA is occluded
- Vacuolar suggests revascularization for limb preservation.
- family acknowledged the seriousness of the situation and the need for revascularization for limb salvage.
- Pending patient and family consent for vascular OR procedure
- plan for revascularization Friday 08/04 per vascular
- cw Heparin gtt and ASA
- DCA Card preop evaluation (seen by Dr. Sears and team in the outpatient setting regularly).
ANGEL - contrast nephropathy vs NSAID use
improving
nephrology following
- Hold Diclofenac qid PRN
HX carotid stenosis status post TCAR
Benign HTN on HCTX and Metoprolol tartrate , spironolactone
HLD on Rosuvastatin
DVT Px: on Heparin gtt
Code: Full
Anticipated Discharge: > 48 hours
Subjective/Interval History
-
Date of Service: August 02, 2024
denies nausea
Objective Data
-
Labs:
Laboratory Results
08/02/24 08/02/24
06:57 15:30
WBC 6.6
Hgb 10.2 L
Hct 32.1 L
Plt Count 325
APTT 178.8 H* Pending
Sodium 137
Potassium 4.3
Chloride 111 H
Carbon Dioxide 19 L
BUN 17
Creatinine 0.9
Glucose 114 H
Calcium 8.9
Vital Signs:
Vital Signs
Temp Pulse Resp BP Pulse Ox
98.6 F 76 18 131/61 97
08/02/24 07:15 08/02/24 07:15 08/02/24 07:15 08/02/24 07:15 08/02/24 07:15
I&O
08/01/24 08/02/24 08/03/24
06:59 06:59 06:59
Intake Total 900 / 900 1340 / 1340 900 / 900
Output Total 400 / 400
Balance 500 / 500 1340 / 1340 900 / 900
[2024-08-02] MEDS: DILAUDID 0.5 MG IV ×2 (14:12→23:54)
--- NOTE | 2024-08-02 15:07 | W.PN.UPDATE ---
Update Note
Progress Note Update
Seen and examined. She notes to me that her pain in her foot is slightly improved. Still has it though. Her foot exam is stable. I discussed plan for Sunday OR with her. She is in agreement. Appreciate cardiology evaluation.
[2024-08-02 15:20] VITALS: BP 129/72
[2024-08-02 16:10] LABS: APTT 116.4 Sec (23.4-35.0)
[2024-08-02 19:00] VITALS: BP 127/58
[2024-08-02] MEDS: ROXICODONE 5 MG PO (20:33)
[2024-08-02 22:55] LABS: APTT 84.3 Sec (23.4-35.0)
[2024-08-02 23:00] VITALS: BP 140/71
[2024-08-03 04:58] LABS: % Basophils 1.3 % (0-2); % Eosinophils 3.6 % (0-6); % Immature Granulocytes 0.3 % (0-0.5); % Lymphocytes 36.8 % (20.5-51.1); % Monocytes 10.3 % (1.7-9.3); % Neutrophils 47.7 % (42.2-75.2); Absolute Basophils 0.1 10^3/uL (0-0.2); Absolute Eosinophils 0.3 10^3/uL (0-0.7); Absolute Lymphocytes 2.8 10^3/uL (1.2-3.4); Absolute Monocytes 0.8 10^3/uL (0.1-0.6); Absolute Neutrophils 3.6 10^3/uL (1.4-6.5); Hematocrit 31.9 % (37.0-47.0); Hemoglobin 10.1 g/dL (12.0-16.0); Mean Corp Hgb Conc. 31.7 g/dL (33.0-37.0); Mean Corpuscular Hgb 23.7 pg (27.0-31.0); Mean Corpuscular Volume 74.7 fL (81.0-99.0); Mean Platelet Volume 10.8 fL (7.4-10.4); Nucleated Red Blood Cells % 0 %; Platelet Count 355 10^3/uL (130-400); Red Blood Cell Count 4.27 10^6/uL (4.20-5.40); Red Cell Dist. Width 14.6 % (11.5-14.5); White Blood Cell Count 7.5 10^3/uL (4.8-10.8)
[2024-08-03 05:09] LABS: APTT 70.1 Sec (23.4-35.0)
[2024-08-03 05:25] LABS: Blood Urea Nitrogen 16 mg/dl (7-17); Calcium 9.1 mg/dl (8.4-10.2); Carbon Dioxide 21 mmol/L (22-30); Chloride 111 mmol/L (98-107); Estimated Creatinine Clearance 39 ml/min; Glucose 103 mg/dl (70-99); Potassium 4.1 mmol/L (3.5-5.1); Sodium 137 mmol/L (135-145); eGFR > 60.00
[2024-08-03 06:00] VITALS: BMI 24.1
[2024-08-03] MEDS: ROXICODONE 5 MG PO ×3 (06:32→22:27)
[2024-08-03 07:00] VITALS: BP 117/60
[2024-08-03] MEDS: HEPARIN 25000 UNITS/250 ML IV (07:07)
[2024-08-03] MEDS: ASPIR LOW (ENTERIC COATED) 81 MG PO (08:14)
[2024-08-03] MEDS: SENOKOT-S 1 TABLET PO (08:14)
[2024-08-03] MEDS: ORETIC 12.5 MG PO (08:14)
[2024-08-03] MEDS: FEOSOL 325 MG PO (08:14)
[2024-08-03] MEDS: LOPRESSOR 50 MG PO ×2 (08:14→19:51)
[2024-08-03] MEDS: ALDACTONE 50 MG PO (08:15)
[2024-08-03] MEDS: CRESTOR 10 MG PO (08:15)
--- NOTE | 2024-08-03 10:44 | W.PN.HOSP.TC ---
Today's Communication/Plan
-
monitor vitals
see plan
Plan for OR tomorrow
pain control
Assessment / Plan
Assessment / Plan
General: No Apparent Distress and Conversant
HEENT: NormoCephalic, Anicteric and Atraumatic
Respiratory: Clear and Non Labored Respirations
Cardiac: S1/S2 and Regular Rhythm; No JVD
GI: Soft, Non Tender, Non Distended and Normal Bowel Sounds
Musculoskeletal: left foot cooler compared to right
Neuro: AO x 3
Psych: Calm
Progressive and acute worsening of ischemic Rt foot pain now at rest
Clinically pregangrenous Rt foot with rest pain due to limb threatening ischemia
Likely worsened chronic PAD. Combination of subacute/chronic occlusive disease.
Associated with CTA evidence of multilevel occlusive disease
- Occluded Right sided entire iliac system
- In addition the SFA is occluded
- Vacuolar suggests revascularization for limb preservation.
- plan for revascularization Friday 08/04 per vascular
- cw Heparin gtt and ASA
- DCA Card preop evaluation noted (seen by Dr. Sears and team in the outpatient setting regularly).
ANGEL - contrast nephropathy vs NSAID use
improving
nephrology following
- Hold Diclofenac qid PRN
HX carotid stenosis status post TCAR
Benign HTN on HCTX and Metoprolol tartrate , spironolactone
HLD on Rosuvastatin
DVT Px: on Heparin gtt
Code: Full
Anticipated Discharge: > 48 hours
Subjective/Interval History
-
Date of Service: August 03, 2024
denies pain
Objective Data
-
Labs:
Laboratory Results
08/02/24 08/03/24 08/03/24
22:27 04:29 11:15
WBC 7.5
Hgb 10.1 L
Hct 31.9 L
Plt Count 355
APTT 84.3 H 70.1 H Pending
Sodium 137
Potassium 4.1
Chloride 111 H
Carbon Dioxide 21 L
BUN 16
Creatinine 1.0
Glucose 103 H
Calcium 9.1
Vital Signs:
Vital Signs
Temp Pulse Resp BP Pulse Ox
98.1 F 70 16 117/60 99
08/03/24 07:00 08/03/24 07:00 08/03/24 07:00 08/03/24 07:00 08/03/24 07:00
I&O
08/02/24 08/03/24 08/04/24
06:59 06:59 06:59
Intake Total 1340 / 1340 900 / 900
Balance 1340 / 1340 900 / 900
[2024-08-03 12:10] LABS: APTT 64.3 Sec (23.4-35.0)
--- NOTE | 2024-08-03 12:15 | W.PN.NEPH.PH ---
Today's Communication / Plan
-
iVF for OR
follow labs
Assessment/Plan
-
IMP:
Progressive and acute worsening of ischemic Rt foot pain now at rest -CLI
chronic PAD
CKD [id number]- baseline cr 1.1-1.3 Dr Mccullough
Non gap met acdiosis
HX carotid stenosis status post TCAR
HTN Hyperaldo state
HLD
OA
hep c treated
Plan:
A/w right CLI s/p CT angio on 07/31
CKD-cr seem to be stable at baseline
Bp stable- on home meds
monitor met acidosis, stable
noted tentative OR on 08/04, use bicarb IVF for PPX
on heparin gtt
d/w pt
-
-
Date of Service: August 03, 2024
CC / HPI / ROS
-
Chief Complaint:
CKD, HTN
History of Present Illness:
cr stbale better than baseline 01
BP stable
hb 10 range on heparin gtt
Review of Systems:
no cp or sob
right foot pain better
Labs
-
Labs:
WBC 7.5 10^3/uL (4.8-10.8) 08/03/24 04:29
RBC 4.27 10^6/uL (4.20-5.40) 08/03/24 04:29
Hgb 10.1 g/dL (12.0-16.0) L 08/03/24 04:29
Hct 31.9 % (37.0-47.0) L 08/03/24 04:29
Plt Count 355 10^3/uL (130-400) 08/03/24 04:29
Sodium 137 mmol/L (135-145) 08/03/24 04:29
Potassium 4.1 mmol/L (3.5-5.1) 08/03/24 04:29
Chloride 111 mmol/L (98-107) H 08/03/24 04:29
Carbon Dioxide 21 mmol/L (22-30) L 08/03/24 04:29
BUN 16 mg/dl (7-17) 08/03/24 04:29
Creatinine 1.0 mg/dL (0.6-1.0) 08/03/24 04:29
eGFR > 60.00 08/03/24 04:29
Glucose 103 mg/dl (70-99) H 08/03/24 04:29
Calcium 9.1 mg/dl (8.4-10.2) 08/03/24 04:29
Albumin 4.0 g/dl (3.5-5.0) 08/01/24 06:36
Physical Exam
-
Vital Signs:
Vital Signs
Temp Pulse Resp BP Pulse Ox
98.1 F 70 16 117/60 99
08/03/24 07:00 08/03/24 07:00 08/03/24 07:00 08/03/24 07:00 08/03/24 07:00
Cardiovascular:: Regular rate and rhythm
Respiratory:: Bilateral: CTA
Lung Excursion:: Normal
Abdomen:: Nontender and Soft
Extremity Edema:: None: Bilateral:
Fatima Catheter: No
[2024-08-03 15:00] VITALS: BP 120/65
[2024-08-03 18:41] LABS: APTT 66.1 Sec (23.4-35.0)
[2024-08-03 23:00] VITALS: BP 95/56
[2024-08-04] VITALS (9 sets, daily range): BP systolic 94–152; BP diastolic 53–85
[2024-08-04 01:56] LABS: APTT 80.1 Sec (23.4-35.0)
--- NOTE | 2024-08-04 01:58 | PTCARENOTE ---
01:30 lab redraw as per hematology tube was overfilled passed arrow on tube.
[2024-08-04] MEDS: ROXICODONE 5 MG PO ×3 (02:29→13:32)
[2024-08-04] MEDS: CRESTOR 10 MG PO (08:05)
[2024-08-04] MEDS: FEOSOL 325 MG PO (08:05)
[2024-08-04] MEDS: ALDACTONE 50 MG PO (08:05)
[2024-08-04] MEDS: ORETIC 12.5 MG PO (08:05)
[2024-08-04] MEDS: ASPIR LOW (ENTERIC COATED) 81 MG PO (08:05)
[2024-08-04 08:43] LABS: % Basophils 1.1 % (0-2); % Eosinophils 2.8 % (0-6); % Immature Granulocytes 0.3 % (0-0.5); % Lymphocytes 38.4 % (20.5-51.1); % Monocytes 9.3 % (1.7-9.3); % Neutrophils 48.1 % (42.2-75.2); Absolute Basophils 0.1 10^3/uL (0-0.2); Absolute Eosinophils 0.2 10^3/uL (0-0.7); Absolute Lymphocytes 2.9 10^3/uL (1.2-3.4); Absolute Monocytes 0.7 10^3/uL (0.1-0.6); Absolute Neutrophils 3.6 10^3/uL (1.4-6.5); Hematocrit 32.7 % (37.0-47.0); Hemoglobin 10.3 g/dL (12.0-16.0); Mean Corp Hgb Conc. 31.5 g/dL (33.0-37.0); Mean Platelet Volume 10.5 fL (7.4-10.4); Nucleated Red Blood Cells % 0 %; Platelet Count 349 10^3/uL (130-400); Red Cell Dist. Width 14.6 % (11.5-14.5); White Blood Cell Count 7.4 10^3/uL (4.8-10.8)
[2024-08-04] MEDS: LOPRESSOR 50 MG PO (09:12)
[2024-08-04 09:38] LABS: Blood Urea Nitrogen 12 mg/dl (7-17); Calcium 9.2 mg/dl (8.4-10.2); Carbon Dioxide 24 mmol/L (22-30); Chloride 108 mmol/L (98-107); Estimated Creatinine Clearance 36 ml/min; Glucose 98 mg/dl (70-99); Potassium 4.7 mmol/L (3.5-5.1); Sodium 138 mmol/L (135-145); eGFR 55.07
--- NOTE | 2024-08-04 10:42 | CM ---
Patient seen at bedside, with present in [place]. Patient states that they are awaiting physicians to confirm plan for surgery. Patient confirmed his concerns about patient gait on steps, and indicated that she has done both
home with [facility] and SNF. They are open to recommendations by therapy following procedures. CM will continue to follow for discharge planning needs.
Plan; home with [facility] vs SNF; pending medical treatment plan
--- NOTE | 2024-08-04 10:55 | W.PN.HOSP.TC ---
Today's Communication/Plan
-
Monitor vital signs
see plan
Vascular surgery following, plan for OR today
Monitor renal function
Pain control
Heparin per vascular
Assessment / Plan
Assessment / Plan
General: No Apparent Distress and Conversant
HEENT: NormoCephalic, Anicteric and Atraumatic
Respiratory: Clear and Non Labored Respirations
Cardiac: S1/S2 and Regular Rhythm; No JVD
GI: Soft, Non Tender, Non Distended and Normal Bowel Sounds
Musculoskeletal: left foot cooler compared to right
Neuro: AO x 3
Psych: Calm
Progressive and acute worsening of ischemic Rt foot pain now at rest
Clinically pregangrenous Rt foot with rest pain due to limb threatening ischemia
Likely worsened chronic PAD. Combination of subacute/chronic occlusive disease.
Associated with CTA evidence of multilevel occlusive disease
- Occluded Right sided entire iliac system
- In addition the SFA is occluded
- Vacuolar suggests revascularization for limb preservation.
- plan for revascularization Friday 08/04 per vascular
- cw Heparin gtt and ASA
- DCA Card preop evaluation noted (seen by Dr. Sears and team in the outpatient setting regularly).
ANGEL - contrast nephropathy vs NSAID use
nephrology following, creatinine 1.1 today
- Hold Diclofenac qid PRN
HX carotid stenosis status post TCAR
Benign HTN on HCTX and Metoprolol tartrate , spironolactone
HLD on Rosuvastatin
DVT Px: on Heparin gtt
Code: Full
Anticipated Discharge: > 48 hours
Subjective/Interval History
-
Date of Service: August 04, 2024
denies nausea
Objective Data
-
Labs:
Laboratory Results
08/04/24 08/04/24 08/04/24
01:04 01:30 08:25
WBC 7.4
Hgb 10.3 L
Hct 32.7 L
Plt Count 349
APTT Cancelled 80.1 H 72.0 H
Sodium 138
Potassium 4.7
Chloride 108 H
Carbon Dioxide 24
BUN 12
Creatinine 1.1 H
Glucose 98
Calcium 9.2
08/04/24
14:00
WBC
Hgb
Hct
Plt Count
APTT Pending
Sodium
Potassium
Chloride
Carbon Dioxide
BUN
Creatinine
Glucose
Calcium
Vital Signs:
Vital Signs
Temp Pulse Resp BP Pulse Ox
98.9 F 88 16 148/65 97
08/04/24 07:00 08/04/24 09:12 08/04/24 07:00 08/04/24 09:12 08/04/24 07:00
I&O
08/03/24 08/04/24 08/05/24
06:59 06:59 06:59
Intake Total 900 / 900 240 / 240
Balance 900 / 900 240 / 240
[2024-08-04] MEDS: PERIDEX 0.12% ORAL RINSE 15 ML PO (11:31)
[2024-08-04] MEDS: BACTROBAN 2% OINTMENT 1 APPLIC NASAL (11:31)
--- NOTE | 2024-08-04 12:37 | W.PN.NEPH.PH ---
Today's Communication / Plan
-
GWENDOLYN prophylaxis
Assessment/Plan
-
IMP:
Progressive and acute worsening of ischemic Rt foot pain now at rest -CLI
chronic PAD
CKD [id number]- baseline cr 1.1-1.3 Dr Mccullough
Non gap met acdiosis
HX carotid stenosis status post TCAR
HTN Hyperaldo state
HLD
OA
hep c treated
Plan:
A/w right CLI s/p CT angio on 07/31
CKD-cr seem to be stable at baseline
Bp stable- on home meds
monitor met acidosis, stable
OR on 08/04, bicarb IVF for PPX
on heparin gtt
Morning labs
-
-
Date of Service: August 04, 2024
CC / HPI / ROS
-
Chief Complaint:
CKD, HTN
History of Present Illness:
cr stbale better than baseline 01
BP stable
hb 10 range on heparin gtt
Review of Systems:
no cp or sob
right foot pain better
Labs
-
Labs:
WBC 7.4 10^3/uL (4.8-10.8) 08/04/24 08:25
RBC 4.30 10^6/uL (4.20-5.40) 08/04/24 08:25
Hgb 10.3 g/dL (12.0-16.0) L 08/04/24 08:25
Hct 32.7 % (37.0-47.0) L 08/04/24 08:25
Plt Count 349 10^3/uL (130-400) 08/04/24 08:25
Sodium 138 mmol/L (135-145) 08/04/24 08:25
Potassium 4.7 mmol/L (3.5-5.1) 08/04/24 08:25
Chloride 108 mmol/L (98-107) H 08/04/24 08:25
Carbon Dioxide 24 mmol/L (22-30) 08/04/24 08:25
BUN 12 mg/dl (7-17) 08/04/24 08:25
Creatinine 1.1 mg/dL (0.6-1.0) H 08/04/24 08:25
eGFR 55.07 08/04/24 08:25
Glucose 98 mg/dl (70-99) 08/04/24 08:25
Calcium 9.2 mg/dl (8.4-10.2) 08/04/24 08:25
Albumin 4.0 g/dl (3.5-5.0) 08/01/24 06:36
Physical Exam
-
Vital Signs:
Vital Signs
Temp Pulse Resp BP Pulse Ox
98.9 F 88 16 148/65 97
08/04/24 07:00 08/04/24 09:12 08/04/24 07:00 08/04/24 09:12 08/04/24 07:00
Cardiovascular:: Regular rate and rhythm
Respiratory:: Bilateral: CTA
Lung Excursion:: Normal
Abdomen:: Nontender and Soft
Extremity Edema:: None: Bilateral:
Fatima Catheter: No
[2024-08-04 14:07] LABS: APTT 93.7 Sec (23.4-35.0)
--- NOTE | 2024-08-04 15:13 | PTCARENOTE ---
Pt arrived from the [facility],int left ac flushed,right f/a has hep running 10ml hour,waiting for d/c orders,vilma at bedside awaiting start time,temp 97.1 temp, 72 -20 bp,165/68, anesthesia called
--- NOTE | 2024-08-04 15:25 | PTCARENOTE ---
Dr Costello at bedside, no pulse in right foot not New, left foot warm unable to obtain pulse in left foot not new per floor nurse
--- NOTE | 2024-08-04 15:32 | W.PN.UPDATE ---
Update Note
Progress Note Update
Discussed with her procedure anticipated. Discussed femoral to femoral artery bypass. Discussed thrombectomies potentially but I do not think those are michelle be feasible based on severe calcific inflow disease. Discussed likely femoral
endarterectomies. Discussed potential need for inflow stenting. Discussed potential need for staged outflow procedure as well. (If continued ischemic problems). Discussed risks including but not limited to bleeding, infections. Discussed risk
of limb loss without intervention, but risk of limb loss even with successful intervention. She understands all expresses clear understanding. She wishes to proceed.
[2024-08-04] MEDS: VANCOCIN 200 IV (15:38)
--- NOTE | 2024-08-04 15:40 | PTCARENOTE ---
Right great toe swollen and painful not new, pt admitted with this pain
--- NOTE | 2024-08-04 15:51 | PTCARENOTE ---
Pt sent back to [facility] or, report given to Cherrie VICTOR
--- NOTE | 2024-08-04 19:56 | W.SUR.POST ---
Surgical Immediate Post Op
Note
Pre Op Diagnosis: Chronic limb threatening ischemia
Post Op Diagnosis: Chronic limb threatening ischemia
Procedure Performed: left femoral endart, LEFT to RIGHT fem-fem bypass, left iliac artery stent, aortogram
Primary Surgeon: Efren Costello MD
Senior Account Clerk: Ankita Moncada, PHYSICIAN CREDENTIALING SPECIALIST-C
Anesthesia: GETA
Estimated Blood Loss: 100 ml
Fluids: See anesthesia flowsheet
Drains/Shunts: N/A
Specimens/Cultures: left femoral plaque
Doppler/Duplex/Angio (Y/N): Y
Complications: None
Operative Findings: BL doppler DP signal post op
--- NOTE | 2024-08-04 20:38 | OR.RPT ---
Operative Report
Operative Report
PROCEDURE DATE: 08/04/2024
Preoperative diagnosis:
1. Severe extensive multilevel peripheral arterial disease with heavy calcified plaque throughout lower extremity arteries and inflow arteries.
2. Chronic limb threatening ischemia right lower extremity.
Postoperative diagnosis: Same
Procedure:
1. Left ilio femoral extensive endarterectomy (distal external iliac, common femoral, profunda origin) with bovine pericardial patch angioplasty.
2. Left to right femoral to femoral artery bypass (left common femoral/patched artery to right profunda femoris) with 8 mm ringed [place] Propaten graft.
3. Left common/external iliac artery angioplasty/stent with [place] VBX 7mm x 59 covered stent.
Surgeon: Pravin
Front Office Associate: SHERRELL Moncada, required for all aspects of open surgical procedure including assistance with traction/countertraction, following a suture line, assistance with closure.
Complications: None
Anesthesia: General
Indications for procedure:
Severe ischemic right foot pain with possible first toe ischemic changes as well. However no open ulcerations. Severe multilevel atherosclerotic bulky plaque disease with complete occlusion of the right entire iliac system, bilateral common
femoral bulky plaque disease, bilateral SFA complete occlusions. Discussed with patient performing inflow procedure. Discussed potential need for staged outflow procedure, but hopefully inflow would be enough. Discussed
risks/benefits/alternatives. Patient understood all wished to proceed.
Description of procedure:
Patient was identified brought to the operating room placed on the table in supine position. After the adequate administration of anesthesia she was prepped and draped in the standard surgical fashion. A standard preoperative timeout was
undertaken and everybody was in agreement the plan. A longitudinal incision was made in the right groin that was carried through skin subcutaneous tissue. Any lymphatic type structures were ligated between silk ties and divided. I dissected down
to the level of the inguinal ligament and identified the common femoral artery as it emerged from underneath the other ligament. It is heavily calcified proximally. In its midsection is slightly softer but again nonpulsatile. The SFA was noted to
be heavily calcified. I did circumferentially dissect it and passed a vessel loop around it. I dissected the profunda beyond its origin and it was very soft and normal to palpation. I dissected down to its first branch point and isolated both of
these branches with careful dissection. Vesseloops passed around them. At this point I felt that I would plug the femoral to femoral artery bypass into the profunda directly. Therefore I was satisfied with this level of dissection.
Now I turned my attention to the left groin and made a similar incision in the left groin that was carried through skin subcutaneous tissue. Any lymphatic type structures or vessels were ligated tween silk ties and divided. I then identified the
inguinal ligament and then the common femoral artery as it emerged from underneath inguinal ligament. There is a very weakly pulsatile vessel but had heavy bulky plaque to palpation. I continued to dissect to the femoral bifurcation. The SFA was
circumferentially dissected and a vessel loop passed around it. The profunda was noted to be soft beyond its origin. Therefore I dissected it for a few centimeters and then circumferentially dissected and passed the vessel loop around it. Now I
dissected underneath the inguinal ligament. I dissected cephalad to the left circumflex iliac vessel (circumferentially dissecting that vessel and passing a vessel loop around it), and noted that the external iliac artery softened proximal to
there. I therefore circumferentially dissected the external iliac care and passed the vessel loop around it. Now that I had control of the vessels in both groins, I created subcutaneous suprapubic tunnel in the standard fashion for a femoral to
femoral artery bypass and passed a umbilical tape through the tunnel.
The patient was given an appropriate dose of heparin, approximately 100 units/kg. Once this had circulated, I placed a profunda clamp in the left profunda, and placed an angled clamp on the distal external iliac artery. I made an arteriotomy on
the profunda with an 11 blade. I extended with the [place] scissor onto the common femoral retrograde. The plaque was so bulky I really had trouble getting through it with a [place] scissor. I therefore then had to use an 11 blade and make an
arteriotomy in the very proximal common femoral artery. Then I was able to find a channel and cut through the heavy bulky plaque with a [place]daña scissor. It was a really bulky heavy plaque. I now used a [place] to endarterectomized the plaque. I cut
the plaque in the proximal common femoral artery and then grasped it and then continue to endarterectomized it. I feathered out to a nice clean endpoint on the proximal profunda. I then grasped the plaque and everted out of the origin of the SFA.
Now I turned my attention proximally. I grasped the posterior rim of plaque to try to tease out some more to get a nicer endpoint, but the plaque fractured. I had difficulty seeing the proximal endpoint and making out the lumen. Therefore I had
to get more proximal control. I dissected more proximal to the right circumflex iliac artery and then move my clamp up to there. (Control was gained of the right circumflex iliac artery as well). Now I extended my arteriotomy slightly, and was
able to get a much better endpoint. There was still some posterior plaque, but there was no end to the plaque that I could palpate. The flow lumen was nicely open now. At this point I ensured that the mild posterior plaque was adherent. My
endpoint proximally look good. I inspected my distal endpoint on the profunda. It looked good but to be show I placed a couple posterior 7-0 Prolene tacking sutures. At this point I used a bovine pericardial patch so long patch angioplasty. This
was done with a 6-0 Prolene suture. Prior to completing antenna my suture line I backbled the pilot point arteries I then completed and tied to my suture line. Next I temporarily released flow in the pilot point system, and there is pulsatile flow now into
the patched artery and the profunda. A couple 6-0 Prolene sutures were placed along the suture line to achieve hemostasis. Once hemostasis was fully achieved, I then reclamped the distal external iliac and the profunda. I made an arteriotomy on
the patch with an 11 blade and extended using a Salda[place] scissor. I now passed a [place] Propaten 8mm ringed graft through the tunnel that I created. The graft in the left side was trimmed and beveled. I then sewed an end-to-side anastomosis to the
patch with a [place] CV 6 suture. Prior to completing and tying down my suture line I backbled the pilot point artery. I then completed and tied to my suture line. I placed a graft clamp on the graft and released flow in the pilot point system. There is
pulsatile flow now into the graft. I now confirmed removing any redundancy in the graft and then turned my attention to the right groin. I reexposed the profunda and placed a profunda clamp on the distal profunda, and take my Vesseloops on the
branch. I did place a vessel loop in the common femoral artery on the 1 portion was slightly softer and double looped this vessel loop and tightened it. I did not need to clamp the SFA at all. I now made an arteriotomy on the profunda just beyond
the origin where it was soft with an 11 blade and extended using a Saldaña scissor. I now trimmed and beveled and remove some of the rings on the graft and sewed an end-to-side anastomosis to the profunda using running [place] CV 6 suture. Prior to
completing and tying down my suture line I backbled the profunda, and flushed out the graft. I then released my clamps. There is pulsatile flow now into the profunda. A couple [place] CV 6 sutures were placed around the suture line to achieve full
hemostasis.
At this point, I turned my attention back to the left groin. A micropuncture kit was used to puncture the patch just cephalad to the anastomosis of the graft. A micropuncture sheath was then advanced over 0.14 inch wire, and then a 0.035 inch wire
was advanced into the aorta and a 5 [place] sheath. The wire did get held up a little in the iliac but was able to pass through. Retrograde angiogram from the left iliac sheath demonstrated severe common iliac stenosis as noted on CT scan, as well
as external iliac stenosis. At this point I therefore then exchanged with a glide catheter for a [place] wire, and then a 6 [place] 23 cm sheath advanced into the aorta. Through this I then advanced a [place] VBX 7 mm x 59 mm covered stent and
positioned it at the origin of the common iliac artery, and distally in the external iliac artery just beyond the area of severe plaque/stenosis (of note the internal iliac artery is chronically occluded and therefore I was not concerned about
covering the origin). I then withdrew my sheath back and then ballooned this balloon mounted stent into place. Completion angiogram demonstrated an excellent result with no residual stenosis and excellent flow through the left iliac system and
into the patched widely patent common femoral artery on the left side. Left-sided profunda was widely patent, and the femoral to femoral artery bypass was nicely patent with good flow into the profunda and the right side. At this point I was very
satisfied. The wires and catheters were withdrawn. The artery was clamped in the left groin proximally and distally as the sheath was withdrawn. A couple 6-0 Prolene sutures were used to repair the sheath entry site on the patch transversely.
Hemostasis was fully achieved. At this point irrigated both incision sites. We gave protamine to reverse the heparin and achieved and confirmed full hemostasis. We then closed in layers using 2-0 Vicryl layers followed by 3-0 Vicryl, followed by
4 Monocryl subcuticular stitch. Dermabond was applied to both groins. The patient tolerated procedure well. Upon completion she had a weakly dopplerable right DP/distal NATHALIE signal, and a dopplerable left DP signal. All sponge, needle, instrument
counts were correct at the end of the case. The patient was transported to recovery room in stable condition.
[2024-08-04 20:51] LABS: Hematocrit 28.8 % (37.0-47.0); Hemoglobin 9.4 g/dL (12.0-16.0); Mean Corp Hgb Conc. 32.6 g/dL (33.0-37.0); Mean Corpuscular Hgb 24.6 pg (27.0-31.0); Mean Corpuscular Volume 75.4 fL (81.0-99.0); Mean Platelet Volume 9.7 fL (7.4-10.4); Platelet Count 269 10^3/uL (130-400); Red Blood Cell Count 3.82 10^6/uL (4.20-5.40); Red Cell Dist. Width 14.8 % (11.5-14.5); White Blood Cell Count 7.8 10^3/uL (4.8-10.8)
[2024-08-04 20:57] LABS: Blood Urea Nitrogen 10 mg/dl (7-17); Calcium 8.2 mg/dl (8.4-10.2); Carbon Dioxide 25 mmol/L (22-30); Chloride 110 mmol/L (98-107); Estimated Creatinine Clearance 39 ml/min; Glucose 117 mg/dl (70-99); Potassium 4.5 mmol/L (3.5-5.1); Sodium 140 mmol/L (135-145); eGFR > 60.00
[2024-08-04] MEDS: NSS 1000 IV (21:04)
[2024-08-04 21:34] LABS: Glucose - Point of Care 133 mg/dl (70-99)
[2024-08-04] MEDS: LOPRESSOR PO (21:38)
[2024-08-04] MEDS: PLAVIX 300 MG PO (21:51)
[2024-08-04 21:58] LABS: Magnesium 1.7 mg/dl (1.6-2.3); Phosphorus 3.9 mg/dl (2.5-4.5)
--- NOTE | 2024-08-04 22:14 | PTCARENOTE ---
Received pt from PACU RNs. Pt is AAOx3, forgetful, drowsy, easily arousable. Neurovascular checks per protocol (see worklist). NSR on the monitor, doppler pulses. Received pt on 8L simple mask, O2 sat 97%, lungs diminished. Pt weaned to RA O2 sat
91%. Fatima in place. B/l groin dressings c/d/i. NS infusing @ 80 ml/hr. Right radial francesco zeroed and transduced. CHG bath provided. at bedside. Bed alarm in place. Call schultz in reach. Safe environment maintained.
[2024-08-05] VITALS (20 sets, daily range): BP systolic 94–140; BP diastolic 41–87; BMI 24.1
--- NOTE | 2024-08-05 00:10 | PTCARENOTE ---
Systems reviewed, no new changes in assessment. Neurovascular checks per protocol (see worklist). Pt c/o no pain. B/l groin dressing c/d/i. Call schultz in reach. Safe environment maintained.
[2024-08-05] MEDS: MAGNESIUM SULFATE 100 IV (01:06)
--- NOTE | 2024-08-05 04:19 | PTCARENOTE ---
Systems reviewed, no new changes in assessment. AM labs provided. Safe environment maintained.
[2024-08-05 04:33] LABS: Hematocrit 30.6 % (37.0-47.0); Hemoglobin 9.7 g/dL (12.0-16.0); Mean Corp Hgb Conc. 31.7 g/dL (33.0-37.0); Mean Corpuscular Hgb 23.7 pg (27.0-31.0); Mean Corpuscular Volume 74.8 fL (81.0-99.0); Mean Platelet Volume 10.4 fL (7.4-10.4); Platelet Count 296 10^3/uL (130-400); Red Blood Cell Count 4.09 10^6/uL (4.20-5.40); Red Cell Dist. Width 14.9 % (11.5-14.5); White Blood Cell Count 9.7 10^3/uL (4.8-10.8)
[2024-08-05 04:35] LABS: INR 1.08; PT 14.3 Sec (11.4-14.6)
[2024-08-05 04:36] LABS: APTT 26.3 Sec (23.4-35.0)
[2024-08-05 04:54] LABS: Blood Urea Nitrogen 14 mg/dl (7-17); Calcium 8.7 mg/dl (8.4-10.2); Carbon Dioxide 22 mmol/L (22-30); Chloride 110 mmol/L (98-107); Estimated Creatinine Clearance 39 ml/min; Glucose 129 mg/dl (70-99); Magnesium 2.2 mg/dl (1.6-2.3); Potassium 4.8 mmol/L (3.5-5.1); Sodium 139 mmol/L (135-145); eGFR > 60.00
[2024-08-05] MEDS: TYLENOL 650 MG PO ×4 (05:09→20:07)
--- NOTE | 2024-08-05 05:09 | PTCARENOTE ---
Addendum entered by Sofia Wallace RN 08/05/24 06:14:
Re-evaluated pt's pain, pt rates pain 10/22. Offered pt stronger pain medication, pt declined.
Original Note:
Pt w/ 11/21 leg pain, pt requesting Tylenol, PRN Tylenol given (see MAR).
--- NOTE | 2024-08-05 08:02 | W.PN.VS ---
Today's Communication / Plan
-
Discussed with Dr. Fatima
Assessment/Plan
-
Postop day 1 Left ilio femoral extensive endarterectomy (distal external iliac, common femoral, profunda origin) with bovine pericardial patch angioplasty.
Left to right femoral to femoral artery bypass (left common femoral/patched artery to right profunda femoris) with 8 mm ringed [place] Propaten graft.
Left common/external iliac artery angioplasty/stent with [place] VBX 7mm x 59 covered stent.
Plan:
DC A-line
DC Kushal
Out of bed to chair, will progress to ambulation tomorrow morning (PT/OT in a.m.)
Regular diet
P.o. medications
Continue ICU care today
Continue aspirin and Plavix
Subjective Data
-
Date of Service: August 05, 2024
Patient seen at bedside this a.m. Patient offers no complaints at this time. No events overnight. Patient denies pain.
Objective Data
-
Vital Signs
Temp Pulse Resp BP Pulse Ox
97.5 F 68 11 116/56 98
08/05/24 07:04 08/05/24 07:15 08/05/24 07:15 08/05/24 04:00 08/05/24 07:15
Intake and Output
08/04/24 08/05/24 08/06/24
06:59 06:59 06:59
Intake Total 240 / 240 1070 / 1150 80 / 80
Output Total 1409 / 1409
Balance 240 / 240 -339 / -259 80 / 80
Intake:
Oral fluids 240 / 240 150 / 150
IV fluids (Total) 820 / 900 80 / 80
Normosol 100 / 100
Nss 1,000 ml @ 80 mls/hr IV . 720 / 800 80 / 80
[id number] DARRIUS Rx#:[id number]
IV piggybacks 100 / 100
Output:
Urine, Fatima 1409 / 1409
Other:
Number of approximated SMALL 1 1
amounts of urine
Number of approximated MODERATE 1 1
amounts of urine
Lab Results
08/05/24 04:14
08/05/24 04:14
Calcium 8.7 mg/dl (8.4-10.2) 08/05/24 04:14
Phosphorus 3.9 mg/dl (2.5-4.5) 08/04/24 20:23
Magnesium 2.2 mg/dl (1.6-2.3) 08/05/24 04:14
Total Bilirubin 0.8 mg/dl (0.2-1.3) 08/01/24 06:36
AST 26 U/L (14-36) 08/01/24 06:36
ALT 17 U/L (0-35) 08/01/24 06:36
Alkaline Phosphatase 64 U/L (38-126) 08/01/24 06:36
Total Protein 7.4 g/dl (6.3-8.2) 08/01/24 06:36
Albumin 4.0 g/dl (3.5-5.0) 08/01/24 06:36
Physical Exam
-
AAO x 3
No tachypnea on room air
No tachycardia
Abdomen soft
Bilateral groin Aquacel dressings clean, dry, intact, soft, flat
Bilateral feet warm
Doppler DP signals bilateral
--- NOTE | 2024-08-05 08:14 | CON.INTV ---
Consultation
Consultation Request
Date/Time Consultation Requested: 08/04/2024 - 190
Date/Time Consultation Performed: 08/05/2024 - 807
Requesting Provider: RICHARD Barragan
Performing Provider: Dr. Bella
Reason for Consultation: LLE endarterectomy + L-to-R fem-fem artery bypass + LLE angioplasty/stent
Medical History
-
Chief Complaint: Right big toe pain, swelling and discoloration
History of Present Illness:
69-year-old female for tobacco smoker with a past medical history of PAD with lower extremity claudication, hypertension, hypercholesterolemia, bilateral carotid artery stenosis s/p left TCAR, thyroid nodule, bilateral hip DJD and cervical spine
herniation who presented with right great toe pains, swelling and discoloration, ongoing for about 1 week. Of note, patient follows as an outpatient with vascular surgery and podiatry. She saw Dr. Costello in the office on 07/25/2024 and right lower
extremity arterial ultrasound was ordered. Patient could not take the pain anymore just came into the hospital. CTA abdominal aorta with runoff obtained on 07/31/2024 showing significantly progressed bilateral vascular disease with new occlusion of
the right external iliac artery and complete occlusion of the right superficial femoral artery, with two-vessel runoff on the right, with also new occlusion of the left SFA and two-vessel runoff on the left. This was compared to prior imaging in
January 2017. Vascular surgery consulted, and heparin drip was started. After much thought, the patient and her agreed to surgical revascularization. On 08/04, patient underwent left iliofemoral extensive endarterectomy with bovine
pericardial patch angioplasty, also left to right femoral to femoral artery bypass with an 8 mm ringed [place] Propaten graft and a left common/external iliac artery angioplasty/stent. Patient tolerated the procedure well with no complications. She
was transferred to the ICU postoperatively and medical van driver services consulted for additional management/recommendations.
Patient was seen and evaluated this morning. Currently in bed resting in no acute distress. Continues to endorse right-sided great toe pain especially when she puts pressure on it or when someone touches it. Heart rate 78, BP 122/49 and
saturating 98% on room air.
PMHx: PAD, hypertension, hepatitis C s/p treatment, hypercholesterolemia, osteoarthritis, former tobacco smoker, bilateral carotid artery stenosis s/p left TCAR (08/01/2023), hypertensive retinopathy, bilateral hip DJD, thyroid nodule, cervical spine
herniation
PSHx: x 2, dental extractions, C3-4 fusion (03/2021), left TCAR (08/01/2023)
Past Medical History
Past Medical History: Other (Above as per HPI)
Past Surgical History: Other (Above as per HPI)
Social History
Tobacco: Former Smoker (Quit smoking 9 years ago)
Alcohol: None
Drug: None
Personal:
Living: With Family
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
Family History
Family History: Cancer (Brother of cancer (unknown type)), Hypertension (Mother) and Other (Father: Cerebral aneurysm)
Allergies / Home Medications
Allergies
Allergy/AdvReac Type Severity Reaction Status Date / Time
diphenhydramine HCl (From Allergy Rash Verified 07/31/24 13:59
Benadryl)
latex (Latex) Allergy Rash Verified 07/31/24 13:59
levofloxacin (From Levaquin) Allergy Shortness Verified 07/31/24 13:59
of Breath
Penicillins Allergy Shortness Verified 07/31/24 13:59
of Breath
Home Medications
�Medication �Instructions �Recorded �Confirmed �Last Taken �Type
aspirin 81 mg tablet,delayed 81 mg PO DAILY Blood Clot 11/13/17 07/31/24 07/30/24 History
release (Adult Low Dose Aspirin) Prevention/Tx
docusate sodium 100 mg capsule 100 mg PO DAILYPRN PRN constipation 11/13/17 07/31/24 Unknown History
(Colace)
hydrochlorothiazide 12.5 mg capsule 12.5 mg PO DAILY Fluid 11/13/17 07/31/24 07/30/24 History
Retention/Swelling
metoprolol tartrate 50 mg tablet 50 mg PO BID Blood Pressure 11/13/17 07/31/24 07/30/24 History
spironolactone 50 mg tablet 50 mg PO DAILY Fluid 11/13/17 07/31/24 07/30/24 History
Retention/Swelling
multivitamin 1 tab PO DAILY Supplement 07/24/23 07/31/24 07/30/24 History
risedronate 150 mg tablet 150 mg PO QMONTH BONE 07/24/23 07/31/24 Unknown History
diclofenac sodium 1 % topical gel 0 g topical QIDPRN PRN leg pain 08/01/23 07/31/24 07/23/23 08:00 History
(Voltaren Arthritis Pain)
rosuvastatin 10 mg tablet 10 mg PO DAILY High Cholesterol 08/01/23 07/31/24 07/30/24 History
ferrous sulfate 137 mg (45 mg 137 mg PO DAILY Supplement 07/31/24 07/31/24 07/30/24 History
iron) tablet,extended release
(Slow Fe)
Review of Systems
-
History Source: Patient
All other systems: Negative unless noted
Vitals / Labs / Diagnostic Testing
Vital Signs
Temp Pulse Resp BP Pulse Ox
97.5 F 77 11 139/65 98
08/05/24 07:04 08/05/24 08:37 08/05/24 07:15 08/05/24 08:37 08/05/24 07:15
Lab Data
08/05/24 04:14
08/05/24 04:14
Laboratory Results
08/04/24 08/05/24
13:49 04:14
PT 14.3
INR 1.08
APTT 93.7 H 26.3
Diagnostic Testing:
Physical Exam
-
HEENT: Normocephalic and Anicteric
Cardiovascular: S1/S2 and Peripheral Edema (negative)
Respiratory: Wheeze (negative), Rales (negative), Rhonchi (negative) and Non-Labored Respirations
GI: Soft, Non Distended, Non Tender and Normal Bowel Sounds
Neurology: Awake, Alert, Oriented and Tremors (negative)
Skin: Warm (Except right great toe is slightly cooler to touch compared to her left foot), Dry and Other
General: Respiratory Distress (negative), Pain (right great toe at the distal end near the edge of the nail bed and distal phalynx), Chills (negative) and Sweats (negative)
Assessment
-
Assessment: 69-year-old female for tobacco smoker with a past medical history of PAD with lower extremity claudication, hypertension, hypercholesterolemia, bilateral carotid artery stenosis s/p left TCAR, thyroid nodule, bilateral hip DJD and
cervical spine herniation who presented with right great toe pains, swelling and discoloration, ongoing for about 1 week. Of note, patient follows as an outpatient with vascular surgery and podiatry. She saw Dr. Costello in the office on 07/25/2024 and
right lower extremity arterial ultrasound was ordered. Patient could not take the pain anymore just came into the hospital. CTA abdominal aorta with runoff obtained on 07/31/2024 showing significantly progressed bilateral vascular disease with new
occlusion of the right external iliac artery and complete occlusion of the right superficial femoral artery, with two-vessel runoff on the right, with also new occlusion of the left SFA and two-vessel runoff on the left. This was compared to prior
imaging in January 2017. Vascular surgery consulted, and heparin drip was started. After much thought, the patient and her agreed to surgical revascularization. On 08/04, patient underwent left iliofemoral extensive endarterectomy with
bovine pericardial patch angioplasty, also left to right femoral to femoral artery bypass with an 8 mm ringed [place] Propaten graft and a left common/external iliac artery angioplasty/stent. Patient tolerated the procedure well with no complications.
She was transferred to the ICU postoperatively and medical van driver services consulted for additional management/recommendations.
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
nodule, cervical spine herniation
Impression:
#Severe extensive multilevel peripheral arterial disease with heavily calcified plaque throughout bilateral lower extremity arteries and inflow arteries with chronic limb threatening ischemia of the right lower extremity s/p left iliofemoral
extensive endarterectomy (distal external iliac, common femoral, profunda origin) with bovine pericardial patch angioplasty, left to right femoral to femoral artery bypass (left common femoral/patched artery to right profunda femoris) with 8 mm
ringed [place] Propaten graft, and left common/external iliac artery angioplasty/stent with [place] VBX 7mm x 59 covered stent (POD#1)
#Severe right toenail/distal 1st toe pain likely due to her severe PAD; her right MTP joint itself is not painful, nor is her IP-joint hence have low suspicion for a crystal-arthropathy (of note, she has no Hx of gout; and previous R-foot XR from
12/2023 showed mild degenerative joint disease with no evidence of erosion or gouty arthropathy)
#Chronic anemia
#Former tobacco smoker
#Hypertension
#Hypercholesterolemia
Plan:
Postoperative surgical intensive care unit monitoring
Supplemental oxygen as needed to maintain SpO2 >90-94% (currently on room air breathing comfortably, saturating 97%)
prn nebulized bronchodilators � not currently bronchospastic
Incentive spirometry encouraged 10x per hour for at least 4 hrs a day
Aspiration precautions
Pain control
Check uric acid, CRP and ESR
No concern for septic arthritis
No fluid collection available to aspirate
Per vascular surgery, if the right toe area does not heal then she will need additional outflow procedure
Neuro and vascular checks per protocol
Maintain MAP>65
Replete electrolytes with K>4, Mg>2
Maintain euglycemia with goal BG 140-180
Vascular surgery following-correspondence and operative notes reviewed
Transfuse blood products as needed to keep Hb>7g/dL, and plt>50k (given post-operative status)
DVT prophylaxis: LMWH
Early nutrition
Early mobilization
Code status: Full code
Critical care statement: A total of 44 minutes of critical care time was provided for this patient today. This includes management of unstable vital signs, evaluation of the patient at bedside, reviewing the patient's pertinent medical records
including radiographs, microbiology, laboratory evaluations, and discussion with primary team, consultants, pharmacy, nutrition, physical therapy, case management, charge nurse, critical care nursing, and respiratory therapy.
Data:
CTA abdominal aorta with runoff 07/31/2024:
Significantly progressed bilateral vascular with new occlusion of the right external iliac artery and complete occlusion of the right superficial femoral artery. Two-vessel runoff on the right. New occlusion of the left SFA and a two-vessel runoff
on the left.
Too small to characterize hypodense renal lesions likely benign cysts.
Moderate fecal matter throughout the colon.
--- NOTE | 2024-08-05 08:29 | W.PN.CARDCBS ---
Today's Communication / Plan
-
stable cardiac status
Please recall if needed
Impression / Plan
-
.
PCP: Gabriella Hammer
Primary ear nose throat physician: Randa Sears MD
Impression:
PAD with critical limb ischemia right lower extremity
s/p OR August 04 s/p Left ilio femoral extensive endarterectomy (distal external iliac, common femoral, profunda origin) with bovine pericardial patch angioplasty.
Left to right femoral to femoral artery bypass (left common femoral/patched artery to right profunda femoris) with 8 mm ringed [place] Propaten graft.
Left common/external iliac artery angioplasty/stent with [place] VBX 7mm x 59 covered stent.
Hypertension
Hyperlipidemia
Carotid stenosis status post left carotid stent 07/2023
Stage 3 CKD
Previous cardiovascular testing:
Lexiscan nuclear stress test 07/19/2023 showing normal perfusion imaging and LVEF 70%
Echo 07/2023: Small LV size, normal wall thickness and LVEF 62%, normal RV size and function, no AI, mild TR, PAP 31 mm
Plan:
Stable cv status.
Echo and stress 2023 were stable.
Cont post op care as per vascular
Outpt cardiac follow up.
Discussed with nursing.
Please recall if needed.
HPI: 69-year-old female with history of hypertension, hyperlipidemia, carotid stenosis status post left carotid stent 07/2023, peripheral arterial disease which has been treated with conservative management, who presented to ED 07/31/2024 with
worsening rest pain to the right foot for past month, found to have multilevel occlusive disease with right sided entire iliac system occluded likely combination of thrombotic and plaque related, as well as occlusion of right SFA. Revascularization
for limb preservation has been advised and tentative plan for surgery Sunday morning, 08/04/2024. Plan for right femoral cutdown with possible attempted thrombectomy, most likely left to right femoral to femoral artery bypass with con commitment
left femoral endarterectomy. Cardiology is consulted for cardiac risk stratification.
Progress Note - [place]
Subjective
Date of Service: August 05, 2024
Pt seen and examined. No complaints. No chest pain or shortness of breath.
Objective
Labs:
08/05/24 04:14
08/05/24 04:14
Labs
Hgb 9.7 g/dL (12.0-16.0) L 08/05/24 04:14
Hct 30.6 % (37.0-47.0) L 08/05/24 04:14
Plt Count 296 10^3/uL (130-400) 08/05/24 04:14
PT 14.3 Sec (11.4-14.6) 08/05/24 04:14
INR 1.08 08/05/24 04:14
APTT 26.3 Sec (23.4-35.0) 08/05/24 04:14
Sodium 139 mmol/L (135-145) 08/05/24 04:14
Potassium 4.8 mmol/L (3.5-5.1) 08/05/24 04:14
BUN 14 mg/dl (7-17) 08/05/24 04:14
Creatinine 1.0 mg/dL (0.6-1.0) 08/05/24 04:14
Glucose 129 mg/dl (70-99) H 08/05/24 04:14
Vital Signs and I&O:
Vital Signs
Temp Pulse Resp BP Pulse Ox
97.5 F 68 11 116/56 98
08/05/24 07:04 08/05/24 07:15 08/05/24 07:15 08/05/24 04:00 08/05/24 07:15
Vital Signs
Temp Pulse Resp BP Pulse Ox
97.5 F 68 11 116/56 98
08/05/24 07:04 08/05/24 07:15 08/05/24 07:15 08/05/24 04:00 08/05/24 07:15
Intake & Output
08/03/24 08/04/24 08/05/24 08/06/24
06:59 06:59 06:59 06:59
Intake Total 900 / 900 240 / 240 1070 / 1150 80 / 80
Output Total 1409 / 1409
Balance 900 / 900 240 / 240 -339 / -259 80 / 80
Physical Exam
Physical Exam
General: No acute distress, AAOX3
Neck: Negative JVD
Heart: Regular, Negative S3 positive S1/S2, Negative S4, No murmur
Lungs: CTA b/l, negative wheezes/rales/rhonchi
Abd: Positive BS, NT/ND, neg rebound/rigidity/guarding
Ext: Negative cyanosis/clubbing/edema
Neuro: nonfocal
[2024-08-05] MEDS: SENOKOT-S 1 TABLET PO ×2 (08:36→20:07)
[2024-08-05] MEDS: ASPIR LOW (ENTERIC COATED) 81 MG PO (08:36)
[2024-08-05] MEDS: ALDACTONE 50 MG PO (08:36)
[2024-08-05] MEDS: CRESTOR 10 MG PO (08:37)
[2024-08-05] MEDS: PLAVIX 75 MG PO (08:37)
[2024-08-05] MEDS: LOPRESSOR 50 MG PO ×2 (08:37→20:06)
[2024-08-05] MEDS: FEOSOL 325 MG PO (08:37)
[2024-08-05] MEDS: ORETIC 12.5 MG PO (08:37)
[2024-08-05] MEDS: NSS IV (09:41)
[2024-08-05] MEDS: ROXICODONE 5 MG PO ×3 (09:41→21:04)
--- NOTE | 2024-08-05 10:30 | PTCARENOTE ---
Dr. Fatima at the bedside with his care team. They assessed her right great toe which is red, and extremely tender to touch. They conveyed it was possibly related to gout. Dr. Bella and Dr. Norris notified via TT.
--- NOTE | 2024-08-05 10:41 | W.PN.HOSP.TC ---
Today's Communication/Plan
-
Post op care
Assessment / Plan
Assessment / Plan
69-year-old with PAD
Chest x-ray atelectasis right lung
CVS: S1-S2 normal
Chest: CTA B/L
Abdomen: Soft, NT / Bowel sounds present
Extremities: right big toe still with bluish discoloration
Pulses per Doppler
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
# Progressive and worsening ischemic right foot
Clinically pregangrenous right foot with rest pain due to limb threatening ischemia
CTA with multiple occlusive disease occluded right sided internal iliac system and SFA
Preop eval done by DCA
Status post left femoral endarterectomy, left to right femoro-femoral bypass, left iliac artery stent, aortogram done by Dr. Costello on 08/04/2024
Continue aspirin, Plavix and statin
Discontinue A-line, Fatima
Out of bed to chair
# Acute kidney vpivfg-xysbugqw-jfomenl nephropathy versus NSAID use
Creatinine improved
Hold NSAIDs
Nephrology following
# Anemia-check iron studies
# History of carotid stenosis status post TCAR
# Hypertension-continue metoprolol, Aldactone
# Hyperlipidemia-continue statin
# History of C3/C4 fusion 2021
# Osteoporosis-on risedronate
# Thyroid nodule
# History of hepatitis C per records-Unclear details.
# Ex-smoker
# DVT prophylaxis-Lovenox
# Full code
D/W ICU team.
Part of this note was created using voice recognition system. Occasional wrong word or��sound alike� substitutions may have inadvertently occurred due to the inherent limitations of voice recognition software. If noted kindly bring it to my
attention for correction.
Anticipated Discharge: > 48 hours
Subjective/Interval History
-
Date of Service: August 05, 2024
Objective Data
-
Labs:
Laboratory Results
08/05/24
04:14
WBC 9.7
Hgb 9.7 L
Hct 30.6 L
Plt Count 296
PT 14.3
INR 1.08
APTT 26.3
Sodium 139
Potassium 4.8
Chloride 110 H
Carbon Dioxide 22
BUN 14
Creatinine 1.0
Glucose 129 H
Calcium 8.7
Vital Signs:
Vital Signs
Temp Pulse Resp BP Pulse Ox
97.5 F 66 13 96/64 98
08/05/24 07:04 08/05/24 10:15 08/05/24 10:15 08/05/24 10:00 08/05/24 10:15
I&O
08/04/24 08/05/24 08/06/24
06:59 06:59 06:59
Intake Total 240 / 240 1070 / 1150 360 / 360
Output Total 1409 / 1484 125 / 125
Balance 240 / 240 -339 / -334 235 / 235
--- NOTE | 2024-08-05 12:07 | PTCARENOTE ---
OOB to the chair with rolling walker. Initially c/o dizziness while standing at the bedside. Subsided and pt was able to take slow small steps pivoting into the chair. Safe environment maintained.
[2024-08-05 12:24] LABS: Ferritin 73.2 ng/ml (11.1-264.0)
[2024-08-05 12:38] LABS: Vitamin B12 399 pg/ml (239-931)
--- NOTE | 2024-08-05 12:50 | W.PN.NEPH.PH ---
Today's Communication / Plan
-
Signed off
Assessment/Plan
-
IMP:
Progressive and acute worsening of ischemic Rt foot pain now at rest -CLI
chronic PAD
CKD libuf6h- baseline cr 1.1-1.3 Dr Mccullough
Non gap met acdiosis
HX carotid stenosis status post TCAR
HTN Hyperaldo state
HLD
OA
hep c treated
Plan:
A/w right CLI s/p CT angio on 07/31
CKD-cr seem to be stable at baseline
Bp stable- on home meds
monitor met acidosis, stable
Post left ilio femoral extensive endarterectomy 08/04
Creatinine remained stable
We will sign off please call if needed
-
-
Date of Service: August 05, 2024
CC / HPI / ROS
-
Chief Complaint:
CKD, HTN
History of Present Illness:
cr stbale better than baseline 01
BP stable
hb 10 range on heparin gtt
Review of Systems:
no cp or sob
right foot pain better
Labs
-
Labs:
WBC 9.7 10^3/uL (4.8-10.8) 08/05/24 04:14
RBC 4.09 10^6/uL (4.20-5.40) L 08/05/24 04:14
Hgb 9.7 g/dL (12.0-16.0) L 08/05/24 04:14
Hct 30.6 % (37.0-47.0) L 08/05/24 04:14
Plt Count 296 10^3/uL (130-400) 08/05/24 04:14
Sodium 139 mmol/L (135-145) 08/05/24 04:14
Potassium 4.8 mmol/L (3.5-5.1) 08/05/24 04:14
Chloride 110 mmol/L (98-107) H 08/05/24 04:14
Carbon Dioxide 22 mmol/L (22-30) 08/05/24 04:14
BUN 14 mg/dl (7-17) 08/05/24 04:14
Creatinine 1.0 mg/dL (0.6-1.0) 08/05/24 04:14
eGFR > 60.00 08/05/24 04:14
Glucose 129 mg/dl (70-99) H 08/05/24 04:14
Calcium 8.7 mg/dl (8.4-10.2) 08/05/24 04:14
Phosphorus 3.9 mg/dl (2.5-4.5) 08/04/24 20:23
Albumin 4.0 g/dl (3.5-5.0) 08/01/24 06:36
Physical Exam
-
Vital Signs:
Vital Signs
Temp Pulse Resp BP Pulse Ox
97.5 F 66 10 108/54 97
08/05/24 07:04 08/05/24 12:15 08/05/24 12:15 08/05/24 12:03 08/05/24 11:45
Cardiovascular:: Regular rate and rhythm
Respiratory:: Bilateral: CTA
Lung Excursion:: Normal
Abdomen:: Nontender and Soft
Extremity Edema:: None: Bilateral:
Fatima Catheter: No
[2024-08-05 14:23] LABS: Erythrocyte Sed Rate 67 mm/hour (0-20)
[2024-08-05 14:33] LABS: Uric Acid 5.5 mg/dl (2.5-6.2)
--- NOTE | 2024-08-05 14:52 | PTCARENOTE ---
Dr. Bella notified of recent laboratory results.
--- NOTE | 2024-08-05 15:14 | CM ---
POD #1, Left femoral endarterectomy, fem-fem bypass, left iliac artery stent, aortogram. Discharge Plan of Care: TBD. Awaiting therapy evaluation. Patient prefers home with resumption of [facility] services.
[2024-08-05 16:33] LABS: Iron 41 ug/dl (37-170)
[2024-08-05 16:42] LABS: Percent Saturation 15 % (20-50); Total Iron Binding Capacity 259 ug/dl (265-497)
--- NOTE | 2024-08-05 17:00 | PTCARENOTE ---
Bedside commode. Passed large amounts of flatus. Unable to void. Bladder scanned for 382ml's.
[2024-08-05] MEDS: LOVENOX 40 MG SC (17:56)
[2024-08-05] MEDS: DILAUDID 0.5 MG IV (17:59)
--- NOTE | 2024-08-05 21:12 | PTCARENOTE ---
Received pt from previous RN. Pt is AAOx3, neurovascular checks per protocol (see worklist). NSR on the monitor, doppler pulses. Pt on RA O2 sat 94%, lungs diminished. Pt with constipation, PRN Senokot given (see MAR). Pt having difficulty voiding,
bladder scanned for 447 mls, pt straight cath for 550 mls (see worklist). B/l groin dressing c/d/i. Pt c/o b/l leg pain, PRN pain medication given (see MAR). at bedside. CHG bath provided. Call schultz in reach. Safe environment maintained.
[2024-08-06] VITALS (15 sets, daily range): BP systolic 101–160; BP diastolic 52–81; PULSE 74–77; BMI 24.4
[2024-08-06 03:22] LABS: Hematocrit 28.9 % (37.0-47.0); Hemoglobin 9.5 g/dL (12.0-16.0); Mean Corp Hgb Conc. 32.9 g/dL (33.0-37.0); Mean Corpuscular Hgb 24.4 pg (27.0-31.0); Mean Corpuscular Volume 74.1 fL (81.0-99.0); Mean Platelet Volume 10.5 fL (7.4-10.4); Platelet Count 302 10^3/uL (130-400); Red Cell Dist. Width 14.6 % (11.5-14.5); White Blood Cell Count 8.3 10^3/uL (4.8-10.8)
--- NOTE | 2024-08-06 03:45 | PTCARENOTE ---
Systems reviewed, no new changes in assessment. AM labs provided. Call schultz in reach. Safe environment maintained.
[2024-08-06 03:57] LABS: Blood Urea Nitrogen 17 mg/dl (7-17); Calcium 8.9 mg/dl (8.4-10.2); Carbon Dioxide 20 mmol/L (22-30); Chloride 108 mmol/L (98-107); Estimated Creatinine Clearance 36 ml/min; Glucose 106 mg/dl (70-99); Sodium 137 mmol/L (135-145); eGFR 55.07
[2024-08-06] MEDS: ROXICODONE 5 MG PO (06:24)
--- NOTE | 2024-08-06 07:45 | PTCARENOTE ---
Assumed care of pt at 0715 following shift report. Pt woken for assessment. Reports continued bilat LE discomfort but reports 'little better' since previously given, now rates 2/. Pt assisted at request OOB to BSC to void. Pt used wheeled walker
to transfer/ambulate w/ supervision. Tolerated increased activity w/o complication. Physical assessment completed as documented. Pt remains on RA. No running IVs. Call marion w/in pt reach. Pt's asleep in room.
--- NOTE | 2024-08-06 08:19 | W.PN.VS ---
Today's Communication / Plan
-
Discussed with Dr. Fatima
Assessment/Plan
-
Postop day 2 Left ilio femoral extensive endarterectomy (distal external iliac, common femoral, profunda origin) with bovine pericardial patch angioplasty.
Left to right femoral to femoral artery bypass (left common femoral/patched artery to right profunda femoris) with 8 mm ringed [place] Propaten graft.
Left common/external iliac artery angioplasty/stent with [place] VBX 7mm x 59 covered stent.
Plan:
PT/OT/ambulation
Downgrade to telemetry
Continue aspirin and Plavix
Pain management
Subjective Data
-
Date of Service: August 06, 2024
Patient seen at bedside this a.m. Patient is a bit uncomfortable in bed. Denies pain to the foot. Repositioned.
Objective Data
-
Vital Signs
Temp Pulse Resp BP Pulse Ox
98.8 F 71 12 135/63 96
08/06/24 07:16 08/06/24 06:00 08/06/24 06:00 08/06/24 06:00 08/06/24 06:00
Intake and Output
08/05/24 08/06/24 08/07/24
06:59 06:59 06:59
Intake Total 1070 / 1150 1130 / 1130
Output Total 1409 / 1484 675 / 675
Balance -339 / -334 455 / 455
Intake:
Oral fluids 150 / 150 890 / 890
IV fluids (Total) 820 / 900 240 / 240
Normosol 100 / 100
Nss 1,000 ml @ 80 mls/hr IV . 720 / 800 240 / 240
[id number] DARRIUS Rx#:[id number]
IV piggybacks 100 / 100
Output:
Kari Inmaney 1409 / 1484 125 / 125
Straight cath output 550 / 550
Other:
Number of approximated SMALL 1 2
amounts of urine
Number of approximated MODERATE 1 1
amounts of urine
Lab Results
08/06/24 03:10
08/06/24 03:10
Calcium 8.9 mg/dl (8.4-10.2) 08/06/24 03:10
Phosphorus 3.9 mg/dl (2.5-4.5) 08/04/24 20:23
Magnesium 2.2 mg/dl (1.6-2.3) 08/05/24 04:14
Total Bilirubin 0.8 mg/dl (0.2-1.3) 08/01/24 06:36
AST 26 U/L (14-36) 08/01/24 06:36
ALT 17 U/L (0-35) 08/01/24 06:36
Alkaline Phosphatase 64 U/L (38-126) 08/01/24 06:36
Total Protein 7.4 g/dl (6.3-8.2) 08/01/24 06:36
Albumin 4.0 g/dl (3.5-5.0) 08/01/24 06:36
Physical Exam
-
AAO x 3
No tachypnea on room air
No tachycardia
Abdomen soft
Bilateral groin Aquacel dressings clean, dry, intact, soft, flat
Bilateral feet warm
Doppler DP signals bilateral
--- NOTE | 2024-08-06 08:24 | W.PN.INTV ---
Today's Communication / Plan
Recommendations
Up OOB as tolerated
Pain control
Postoperative management as per vascular surgery
Encourage incentive spirometer
Maintain MAP >65-70
Patient is stable for downgrade out of ICU to telemetry. No additional recommendations at this time. Tour Agent/Pulmonary service will now sign off. Please reconsult if there are any additional questions/concerns, or if patient's respiratory
status deteriorates.
Assessment
-
Assessment: 69-year-old female for tobacco smoker with a past medical history of PAD with lower extremity claudication, hypertension, hypercholesterolemia, bilateral carotid artery stenosis s/p left TCAR, thyroid nodule, bilateral hip DJD and
cervical spine herniation who presented with right great toe pains, swelling and discoloration, ongoing for about 1 week. Of note, patient follows as an outpatient with vascular surgery and podiatry. She saw Dr. Costello in the office on 07/25/2024 and
right lower extremity arterial ultrasound was ordered. Patient could not take the pain anymore just came into the hospital. CTA abdominal aorta with runoff obtained on 07/31/2024 showing significantly progressed bilateral vascular disease with new
occlusion of the right external iliac artery and complete occlusion of the right superficial femoral artery, with two-vessel runoff on the right, with also new occlusion of the left SFA and two-vessel runoff on the left. This was compared to prior
imaging in January 2017. Vascular surgery consulted, and heparin drip was started. After much thought, the patient and her agreed to surgical revascularization. On 08/04, patient underwent left iliofemoral extensive endarterectomy with
bovine pericardial patch angioplasty, also left to right femoral to femoral artery bypass with an 8 mm ringed [place] Propaten graft and a left common/external iliac artery angioplasty/stent. Patient tolerated the procedure well with no complications.
She was transferred to the ICU postoperatively and inverted block operator services consulted for additional management/recommendations.
Chronic conditions FISCAL AGENT: PAD, hypertension, hepatitis C s/p treatment, hypercholesterolemia, osteoarthritis, former tobacco smoker, bilateral carotid artery stenosis s/p left TCAR (08/01/2023), hypertensive retinopathy, bilateral hip DJD, thyroid
nodule, cervical spine herniation
Impression:
#Severe extensive multilevel peripheral arterial disease with heavily calcified plaque throughout bilateral lower extremity arteries and inflow arteries with chronic limb threatening ischemia of the right lower extremity s/p left iliofemoral
extensive endarterectomy (distal external iliac, common femoral, profunda origin) with bovine pericardial patch angioplasty, left to right femoral to femoral artery bypass (left common femoral/patched artery to right profunda femoris) with 8 mm
ringed [place] Propaten graft, and left common/external iliac artery angioplasty/stent with [place] VBX 7mm x 59 covered stent (POD#2)
#Right toenail/distal 1st toe pain (improved as of 08/06/2024) likely due to her severe PAD; her right MTP joint itself is not painful, nor is her IP-joint hence have low suspicion for a crystal-arthropathy (of note, she has no Hx of gout; and
previous R-foot XR from 12/2023 showed mild degenerative joint disease with no evidence of erosion or gouty arthropathy)
#Chronic anemia
#Former tobacco smoker
#Hypertension
#Hypercholesterolemia
Plan:
Postoperative surgical intensive care unit monitoring
Supplemental oxygen as needed to maintain SpO2 >90-94% (currently on room air breathing comfortably, saturating 97-98%)
prn nebulized bronchodilators � not currently bronchospastic
Incentive spirometry encouraged 10x per hour for at least 4 hrs a day
Aspiration precautions
Pain control
Inflammatory markers checked and the ESR is elevated at 67, and CRP is elevated at 24.4; uric acid was WNL at 5.5 ---> this makes gout less likely as well
No concern for septic arthritis
No fluid collection available to aspirate
Per vascular surgery, if the right toe area does not heal then she will need additional outflow procedure -patient reports improved right toe pain today which is encouraging
PT/OT
Neuro and vascular checks per protocol
Maintain MAP>65
Replete electrolytes with K>4, Mg>2
Maintain euglycemia with goal BG 140-180
Vascular surgery following-correspondence and operative notes reviewed
Transfuse blood products as needed to keep Hb>7g/dL, and plt>50k (given post-operative status)
DVT prophylaxis: LMWH
Early nutrition
Early mobilization
Code status: Full code
Patient is stable for downgrade out of ICU to telemetry. No additional recommendations at this time. Tour Agent/Pulmonary service will now sign off. Thank you for allowing us to be involved in the care of this patient. Please reconsult if there
are any additional questions/concerns, or if patient's respiratory status deteriorates.
Data:
CTA abdominal aorta with runoff 07/31/2024:
Significantly progressed bilateral vascular with new occlusion of the right external iliac artery and complete occlusion of the right superficial femoral artery. Two-vessel runoff on the right. New occlusion of the left SFA and a two-vessel runoff
on the left.
Too small to characterize hypodense renal lesions likely benign cysts.
Moderate fecal matter throughout the colon.
Total time spent today was 58 minutes for this encounter. Time includes reviewing laboratory test/imaging results, reviewing pertinent medical records, obtaining and reviewing medical history, performing an appropriate exam, ordering medications,
tests and procedures. Time also includes documentation of this encounter, coordinating patient care and communicating with other healthcare professionals. Total time does not include separately billed tests performed on this date of service.
Subjective Dataa
Subjective Data
Date of Service:
Date of Service: August 06, 2024
Chief Complaint: Tour Agent Follow Up
Subjective:
Patient was seen and evaluated today at bedside. Her right toe pain has improved. Afebrile overnight. BP 132/70, heart rate 83 and saturating 97% on room air. She currently denies chest pain, SOB, BEE, nausea, fevers or chills.
Review of Systems
General: Other (Negative unless mentioned above)
Objective Data
Data Reviewed
Vital Signs / I&O / Oxygen:
Vital Signs
Temp Pulse Resp BP Pulse Ox
98.8 F 90 10 132/70 98
08/06/24 07:16 08/06/24 08:25 08/06/24 08:00 08/06/24 08:25 08/06/24 08:00
Intake and Output
08/05/24 08/06/24 08/07/24
06:59 06:59 06:59
Intake Total 1070 / 1150 1130 / 1130
Output Total 1409 / 1484 675 / 675
Balance -339 / -334 455 / 455
SaO2 98
Nasal Cannula flow liters per 2
minute
Physical Exam
General: Respiratory Distress (negative), Comfortable, Chills (negative) and Sweats (negative)
HEENT: Normocephalic and Anicteric
Cardiovascular: S1-S2 and Peripheral Edema (negative)
Respiratory: Wheeze (negative), Crackles (negative), Rhonchi (negative) and Non-Labored Respirations
GI: Soft, Non Distended, Non Tender and Normal Bowel Sounds
Neurology: Awake, Alert, Oriented and Tremors (negative)
Skin: Warm, Dry, Cyanosis (negative), Jaundice (negative) and Other (Mild tenderness to palpation of her right great toe at the distal end near the edge of the nail bed and distal phalynx)
Labs/Micro/Reports
Lab Data
08/06/24 03:10
08/06/24 03:10
[2024-08-06] MEDS: CRESTOR 10 MG PO (08:25)
[2024-08-06] MEDS: PLAVIX 75 MG PO (08:25)
[2024-08-06] MEDS: ORETIC 12.5 MG PO (08:25)
[2024-08-06] MEDS: FEOSOL 325 MG PO (08:25)
[2024-08-06] MEDS: LOPRESSOR 50 MG PO ×2 (08:25→21:37)
[2024-08-06] MEDS: ALDACTONE 50 MG PO (08:25)
[2024-08-06] MEDS: ASPIR LOW (ENTERIC COATED) 81 MG PO (08:25)
[2024-08-06 08:30] LABS: Glycohemoglobin (HgbA1c) 5.9 % (4.0-5.6)
--- NOTE | 2024-08-06 10:20 | W.PN.HOSP.TC ---
Today's Communication/Plan
-
Transfer to telemetry
Discharge planning per vascular
Assessment / Plan
Assessment / Plan
69-year-old with PAD
Chest x-ray atelectasis right lung
CVS: S1-S2 normal
Chest: CTA B/L
Abdomen: Soft, NT / Bowel sounds present
Extremities: right big toe still with bluish discoloration
Pulses per Doppler
Bilateral inguinal area incisions with glue-stable no bleeding
MANAGER SOLUTION: Non focal exam
# Progressive and worsening ischemic right foot
Clinically pregangrenous right foot with rest pain due to limb threatening ischemia
CTA with multiple occlusive disease occluded right sided internal iliac system and SFA
Preop eval done by DCA
Status post left femoral endarterectomy, left to right femoro-femoral bypass, left iliac artery stent, aortogram done by Dr. Costello on 08/04/2024
Continue aspirin, Plavix and statin
PT OT consulted
# Acute kidney vfxwrf-ziauifbm-tqbyilk nephropathy versus NSAID use
Creatinine improved, again 1.1 today
Hold NSAIDs
Nephrology following
# Anemia-Add p.o. iron and B12
# History of carotid stenosis status post TCAR
# Hypertension-Continue Metoprolol, Aldactone
# Hyperlipidemia-Continue Statin
# History of C3/C4 fusion 2021
# Osteoporosis-on Risedronate
# Thyroid nodule
# History of hepatitis C per records-Unclear details.
# Ex-smoker
# DVT prophylaxis-Lovenox
# Full code
D/W ICU team.
Called and left message for Son.
Part of this note was created using voice recognition system. Occasional wrong word or��sound alike� substitutions may have inadvertently occurred due to the inherent limitations of voice recognition software. If noted kindly bring it to my
attention for correction.
Anticipated Discharge: Within 24 hours
Subjective/Interval History
-
Date of Service: August 06, 2024
Objective Data
-
Labs:
Laboratory Results
08/06/24
03:10
WBC 8.3
Hgb 9.5 L
Hct 28.9 L
Plt Count 302
Sodium 137
Potassium 5.0
Chloride 108 H
Carbon Dioxide 20 L
BUN 17
Creatinine 1.1 H
Glucose 106 H
Calcium 8.9
Vital Signs:
Vital Signs
Temp Pulse Resp BP Pulse Ox
98.8 F 90 10 132/70 98
08/06/24 07:16 08/06/24 08:25 08/06/24 08:00 08/06/24 08:25 08/06/24 08:00
I&O
08/05/24 08/06/24 08/07/24
06:59 06:59 06:59
Intake Total 1070 / 1150 1130 / 1130
Output Total 1409 / 1484 675 / 675
Balance -339 / -334 455 / 455
[2024-08-06] MEDS: TYLENOL 650 MG PO ×2 (12:03→16:32)
--- NOTE | 2024-08-06 14:22 | PTCARENOTE ---
Transfer report called to 'Genna VICTOR'. Pt to be transferred by to RM 2124. present in room at time of transfer. Pt's personal belongings sent w/ pt at time of transfer. No changes from previous assessment findings or complaints received.
--- NOTE | 2024-08-06 14:23 | CM ---
Patient transferred to Room 2124.
[2024-08-06] MEDS: LOVENOX 40 MG SC (17:04)
[2024-08-06] MEDS: FLUSH (NSS) 3 FLUSH IV (21:41)
[2024-08-07 03:38] VITALS: BP 112/57
[2024-08-07 06:00] VITALS: BMI 23.5
[2024-08-07 07:24] LABS: Hematocrit 29.5 % (37.0-47.0); Hemoglobin 9.5 g/dL (12.0-16.0); Mean Corp Hgb Conc. 32.2 g/dL (33.0-37.0); Mean Corpuscular Hgb 24.1 pg (27.0-31.0); Mean Corpuscular Volume 74.9 fL (81.0-99.0); Mean Platelet Volume 10.4 fL (7.4-10.4); Platelet Count 325 10^3/uL (130-400); Red Blood Cell Count 3.94 10^6/uL (4.20-5.40); Red Cell Dist. Width 14.6 % (11.5-14.5); White Blood Cell Count 7.8 10^3/uL (4.8-10.8)
[2024-08-07 07:28] VITALS: BP 127/61
--- NOTE | 2024-08-07 08:00 | W.PN.VS ---
Today's Communication / Plan
-
Plan discussed with attending Dr. Fidel Fatima III
Assessment/Plan
-
Postop day 3 Left ilio femoral extensive endarterectomy (distal external iliac, common femoral, profunda origin) with bovine pericardial patch angioplasty.
Left to right femoral to femoral artery bypass (left common femoral/patched artery to right profunda femoris) with 8 mm ringed [place] Propaten graft.
Left common/external iliac artery angioplasty/stent with [place] VBX 7mm x 59 covered stent.
Plan:
PT/OT/ambulation
Continue aspirin and Plavix
Pain management
Podiatry on board
Subjective Data
-
Date of Service: August 07, 2024
Patient seen and examined at bedside, reports well-managed postoperative pain. Tolerating p.o. diet. Continues to endorse almost near resolution of right foot rest pain but does endorse continued pain at right hallux toe.
Objective Data
-
Vital Signs
Temp Pulse Resp BP Pulse Ox
98.7 F 79 16 125/65 97
08/07/24 07:28 08/07/24 08:25 08/07/24 07:28 08/07/24 08:25 08/07/24 07:28
Intake and Output
08/06/24 08/07/24 08/08/24
06:59 06:59 06:59
Intake Total 1130 / 1130 600 / 600
Output Total 675 / 675
Balance 455 / 455 600 / 600
Intake:
Oral fluids 890 / 890 600 / 600
IV fluids (Total) 240 / 240
Nss 1,000 ml @ 80 mls/hr IV . 240 / 240
[id number] DARRIUS Rx#:[id number]
Output:
Urine, Fatima 125 / 125
Straight cath output 550 / 550
Other:
Number of approximated SMALL 2 2
amounts of urine
Number of approximated MODERATE 1 3
amounts of urine
Lab Results
08/07/24 07:03
08/07/24 07:03
Calcium 8.9 mg/dl (8.4-10.2) 08/07/24 07:03
Phosphorus 3.9 mg/dl (2.5-4.5) 08/04/24 20:23
Magnesium 2.2 mg/dl (1.6-2.3) 08/05/24 04:14
Total Bilirubin 0.8 mg/dl (0.2-1.3) 08/01/24 06:36
AST 26 U/L (14-36) 08/01/24 06:36
ALT 17 U/L (0-35) 08/01/24 06:36
Alkaline Phosphatase 64 U/L (38-126) 08/01/24 06:36
Total Protein 7.4 g/dl (6.3-8.2) 08/01/24 06:36
Albumin 4.0 g/dl (3.5-5.0) 08/01/24 06:36
Physical Exam
-
AAO x 3
No tachypnea on room air
No tachycardia
Abdomen soft
Bilateral groin surgical incision sites clean, dry, intact, soft, flat
Bilateral feet warm
Doppler DP signals bilateral
Right hallux with tenderness to palpation, no open wound, thickened skin noted at tip of toe
[2024-08-07] MEDS: ALDACTONE 50 MG PO (08:25)
[2024-08-07] MEDS: FEOSOL 325 MG PO (08:25)
[2024-08-07] MEDS: ASPIR LOW (ENTERIC COATED) 81 MG PO (08:25)
[2024-08-07] MEDS: ORETIC 12.5 MG PO (08:25)
[2024-08-07] MEDS: LOPRESSOR 50 MG PO ×2 (08:25→21:36)
[2024-08-07] MEDS: PLAVIX 75 MG PO (08:25)
[2024-08-07] MEDS: CRESTOR 10 MG PO (08:25)
[2024-08-07 08:29] LABS: Blood Urea Nitrogen 15 mg/dl (7-17); Calcium 8.9 mg/dl (8.4-10.2); Carbon Dioxide 20 mmol/L (22-30); Chloride 108 mmol/L (98-107); Estimated Creatinine Clearance 39 ml/min; Glucose 103 mg/dl (70-99); Potassium 4.4 mmol/L (3.5-5.1); Sodium 137 mmol/L (135-145); eGFR > 60.00
--- NOTE | 2024-08-07 08:47 | W.PN.HOSP.TC ---
Today's Communication/Plan
-
X-ray of the foot
Started vancomycin while waiting for infectious disease input
Podiatry evaluation requested
Assessment / Plan
Assessment / Plan
69-year-old with PAD
Chest x-ray atelectasis right lung
CVS: S1-S2 normal
Chest: CTA B/L
Abdomen: Soft, NT / Bowel sounds present
Extremities: right big toe still with bluish discoloration, mild edema. Patient denies any pain but she does have some tenderness
Pulses per Doppler
Bilateral inguinal area incisions with glue-stable no bleeding
MATH AND SCIENCE DIVISION CHAIR: Non focal exam
# Progressive and worsening ischemic right foot
Clinically pregangrenous right foot with rest pain due to limb threatening ischemia
CTA with multiple occlusive disease occluded right sided internal iliac system and SFA
Preop eval done by DCA
Status post left femoral endarterectomy, left to right femoro-femoral bypass, left iliac artery stent, aortogram done by Dr. Costello on 08/04/2024
Continue aspirin, Plavix and statin
Right toe still has some discoloration and mild tenderness
X-ray ordered
Podiatry and infectious disease consulted.
Podiatry will see the patient tomorrow
In the interim I will start vancomycin while waiting for infectious disease. Unclear if there is infection or this is all ischemic.
PT OT consulted
# Acute kidney ojgoao-nncqaldd-mbemrcu nephropathy versus NSAID use
Creatinine improved
Hold NSAIDs
Nephrology following
# Anemia- p.o. iron and B12
# Hypertension-Continue Metoprolol, Aldactone
# Hyperlipidemia-Continue Statin
# History of carotid stenosis status post TCAR
# History of C3/C4 fusion 2021
# Osteoporosis-on Risedronate
# Thyroid nodule
# History of hepatitis C per records-Unclear details.
# Ex-smoker
# DVT prophylaxis-Lovenox
# Full code
Discussed with nursing at bedside
Discussed with patient's at bedside yesterday on 08/06/2024
Discussed with case management
Part of this note was created using voice recognition system. Occasional wrong word or��sound alike� substitutions may have inadvertently occurred due to the inherent limitations of voice recognition software. If noted kindly bring it to my
attention for correction.
Anticipated Discharge: 24 - 48 hours
Subjective/Interval History
-
Date of Service: August 07, 2024
Objective Data
-
Labs:
Laboratory Results
08/07/24
07:03
WBC 7.8
Hgb 9.5 L
Hct 29.5 L
Plt Count 325
Sodium 137
Potassium 4.4
Chloride 108 H
Carbon Dioxide 20 L
BUN 15
Creatinine 1.0
Glucose 103 H
Calcium 8.9
Vital Signs:
Vital Signs
Temp Pulse Resp BP Pulse Ox
98.7 F 79 16 125/65 97
08/07/24 07:28 08/07/24 08:25 08/07/24 07:28 08/07/24 08:25 08/07/24 07:28
I&O
08/06/24 08/07/24 08/08/24
06:59 06:59 06:59
Intake Total 1130 / 1130 600 / 600
Output Total 675 / 675
Balance 455 / 455 600 / 600
--- NOTE | 2024-08-07 08:53 | PHA.VAN.IN ---
Assessment
- Assessment
Renal Function: Appears similar to baseline
AUC Dosing Plan
- Dosing Variables
Dosing Weight (kg): 55
Dosing CrCl (ml/min): 39
Vd coefficient (L/kg): 0.7
- Empiric Dosing
Maintenance Regimen: Vanc 750mg Q24H first dose now then 08/08 0600 in lieu of load
Estimated AUC (mcg*h/mL): 540
Estimated Peak (mcg*h/mL): 33
Estimated Trough (mcg/ml): 14
Estimated Half Life (H): 19
- Monitoring
No levels ordered at this time: consider levels in next few days
Pharmacokinetics Vancomycin I
- -
Patient Age: 69
Patient Sex: Female
Vancomycin Day #: 1
Indication: Skin And Soft Tissue
Requesting Provider: Dr. Norris
Pertinent Antimicrobial Allergies:
levofloxacin - SOB
penicillins - SOB
Height / Weight:
Height 5 ft
Actual Weight 54.567 kg
- Vital Signs / Lab Results
Temp Pulse Resp BP Pulse Ox
98.7 F 79 16 125/65 97
08/07/24 07:28 08/07/24 08:25 08/07/24 07:28 08/07/24 08:25 08/07/24 07:28
Lab Results - Hematology
08/04/24 08/05/24 08/06/24
20:23 04:14 03:10
WBC 7.8 9.7 8.3
08/07/24
07:03
WBC 7.8
Lab Results - Chemistry
08/04/24 08/04/24 08/05/24
08:25 20:23 04:14
BUN 12 10 14
Creatinine 1.1 H 1.0 1.0
Estimated Creat Clear 36 39 39
06/25/25 06/26/25
03:10 07:03
BUN 17 15
Creatinine 1.1 H 1.0
Estimated Creat Clear 36 39
[2024-08-07] MEDS: VANCOCIN 150 IV (11:17)
[2024-08-07 11:18] VITALS: BP 142/64
[2024-08-07] MEDS: ROXICODONE 5 MG PO (13:49)
--- NOTE | 2024-08-07 15:10 | CM ---
CM following re: discharge planning.
Reviewed pt's chart, met with pt and pt's Arturo at bedside.
Pt is Postop day 3 Left ilio femoral extensive endarterectomy, continue supportive care.
PT and OT recommend SNF level of care. Both pt and her are aware, expressed their agreement. A list of SNFs provided. Following SNFs preferred: [facility], [facility], [facility], [facility], [facility]. A referral
to above SNFs made. Awaiting for determination.
D/C plan: preferred SNF.
CM will follow to assist pt with discharge to a preferred SNF.
--- NOTE | 2024-08-07 15:32 | W.PN.UPDATE ---
Update Note
Progress Note Update
X ray noted.
Added AB till ID sees
Reviewed X ray with Podiatry
Air may be under the toe nail.
[2024-08-07 16:00] VITALS: BP 127/60
[2024-08-07] MEDS: AZACTAM 1000 MG IV (16:36)
[2024-08-07] MEDS: STERILE WATER FOR INJECTION 10 ML IV (16:37)
[2024-08-07] MEDS: FLAGYL 500 MG 100 IV (16:37)
[2024-08-07] MEDS: LOVENOX 40 MG SC (16:37)
--- NOTE | 2024-08-07 17:10 | CON.ID ---
Consultation
-
Date/Time Consultation Requested: July
Date/Time Consultation Performed: july
Performing Provider: Angy Sharpe MD
Reason for Consultation: ischemic changes great toe in setting of vascular occlusion with air noted
Chief Complaint / Past History
Chief Complaint
Admitted with intractable bilateral foot pain
History of Present Illness
Patient with history of vascular disease was admitted due to progression of bilateral foot pain with pain so intense that she was unable to ambulate
Past History
Past Medical History: PAD and Venous Hypertension
Past Surgical History: and Orthopedic (cervical spine surgery)
Allergy History:
diphenhydramine HCl (From Benadryl) Allergy (Verified 07/31/24 13:59)
Rash
latex (Latex) Allergy (Verified 07/31/24 13:59)
Rash
levofloxacin (From Levaquin) Allergy (Verified 07/31/24 13:59)
Shortness of Breath
Penicillins Allergy (Verified 07/31/24 13:59)
Shortness of Breath
Medications Reviewed: Yes
Current Antibiotics:
vancomycin /Aztreonam
Social History
Tobacco: Former Smoker
Alcohol: None
Drug: None
Personal:
Living: With Family
Employment: Not Employed
Family History
Family History: Not Pertinent
Review of Systems
Review of Systems
HEENT: Headache (occasional)
Neurological: Headache
All systems: All other systems were reviewed and were negative
Vital Signs
Temp Pulse Resp BP Pulse Ox
98.6 F 84 16 127/60 98
08/07/24 16:00 08/07/24 16:00 08/07/24 16:00 08/07/24 16:00 08/07/24 16:00
Physical Exam
Physical Exam
Constitutional: No Acute Distress, Well Developed, Comfortable and Non-toxic
Head: Normocephalic
Eyes: Pupils Equal, Pupils Round, No Conjunctival Hemorrhage and Sclera Anicteric
Pharynx: Benign
Oral: No Thrush and No Ulcers
Cardiovascular: Regular Rate
Pulmonary: Clear and Non Labored
Gastrointestinal: Soft, Non Tender, Non Distended, Decreased Bowel Sounds, No Rebound and No Guarding
Skin: Warm, Dry and Other (great toe with discolored nail ,swollen, cold to touch, darkened skin without pain)
Wound: None
Neurological: Awake, Alert, Oriented, AO x 3 and No Motor Deficits
Psychological: Calm
Lines: PIV
Lab / Diagnostic Study Results
08/07/24 07:03
08/07/24 07:03
Abs Immat Gran (auto) 0.0 10^3/uL (0-0.05) 08/04/24 08:25
Absolute Neuts (auto) 3.6 10^3/uL (1.4-6.5) 08/04/24 08:25
Absolute Lymphs (auto) 2.9 10^3/uL (1.2-3.4) 08/04/24 08:25
Absolute Monos (auto) 0.7 10^3/uL (0.1-0.6) H 08/04/24 08:25
Absolute Basos (auto) 0.1 10^3/uL (0-0.2) 08/04/24 08:25
Immature Gran % 0.3 % (0-0.5) 08/04/24 08:25
Neutrophils % 48.1 % (42.2-75.2) 08/04/24 08:25
Lymphocytes % 38.4 % (20.5-51.1) 08/04/24 08:25
Monocytes % 9.3 % (1.7-9.3) 08/04/24 08:25
Eosinophils % 2.8 % (0-6) 08/04/24 08:25
Basophils % 1.1 % (0-2) 08/04/24 08:25
ESR 67 mm/hour (0-20) H 08/05/24 13:40
PT 14.3 Sec (11.4-14.6) 08/05/24 04:14
INR 1.08 08/05/24 04:14
C-Reactive Protein 24.40 mg/L (0.0-10.00) H 08/05/24 13:40
Microbiology Results
Micro:
MRSA screen negative
Assessment / Plan
1. Admission for bilateral foot pain caused by vascular compromise with vascular surgery repair of occlusion and resolution of pain
2. Great toe with swelling and boggy edema with black discoloration of nail and deep/dusky skin with toe cold to touch /patient denies pain
3. History of PVD seen in past and presently by Dr Costello
4. Consultation called for antibiotic choice in setting of ischemic tssue with threat of gangrene
5. MRSA screen neg so would D/C vancomycin
6. Patient with reported allergy to Levofloxacin and penicillin
7. Patient currently on Flagyl would add Ceftriaxone for broad coverage
8. Patient currently afebrile without leukocytosis
9. Gangrene is likely in this setting with discolored cold toe with presence of air on imaging
10. Podiatry consultation pending
Care Review
Plan reviewed with: Physician
Total Time Spent with Patient (in minutes): 45
[2024-08-07 19:56] VITALS: BP 130/58
[2024-08-07 23:20] VITALS: BP 119/61
[2024-08-08] VITALS (7 sets, daily range): BP systolic 107–136; BP diastolic 50–88; PULSE 89; O2SAT 95–100; BMI 23.1
[2024-08-08] MEDS: FLAGYL 500 MG 100 IV ×4 (00:33→23:59)
[2024-08-08] MEDS: AZACTAM 1000 MG IV ×2 (00:34→08:12)
[2024-08-08] MEDS: STERILE WATER FOR INJECTION 10 ML IV ×2 (00:34→08:12)
[2024-08-08 07:47] LABS: Hematocrit 29.5 % (37.0-47.0); Hemoglobin 9.5 g/dL (12.0-16.0); Mean Corp Hgb Conc. 32.2 g/dL (33.0-37.0); Mean Corpuscular Hgb 24.3 pg (27.0-31.0); Mean Corpuscular Volume 75.4 fL (81.0-99.0); Mean Platelet Volume 10.6 fL (7.4-10.4); Platelet Count 339 10^3/uL (130-400); Red Blood Cell Count 3.91 10^6/uL (4.20-5.40); Red Cell Dist. Width 14.7 % (11.5-14.5); White Blood Cell Count 7.3 10^3/uL (4.8-10.8)
[2024-08-08 08:00] LABS: Blood Urea Nitrogen 18 mg/dl (7-17); Calcium 8.7 mg/dl (8.4-10.2); Carbon Dioxide 21 mmol/L (22-30); Chloride 106 mmol/L (98-107); Estimated Creatinine Clearance 36 ml/min; Glucose 98 mg/dl (70-99); Potassium 4.2 mmol/L (3.5-5.1); Sodium 137 mmol/L (135-145); eGFR 55.07
[2024-08-08] MEDS: CRESTOR 10 MG PO (08:07)
--- NOTE | 2024-08-08 08:07 | CON.MD ---
Consultation - Medical
-
Dictated consult to follow
69 year old female admitted with severe right LE rest pain found to be due to critical limb ischemia. Status post left femoral endarterectomy, left to right fem-fem bypass and left iliac artery stent.
At this time, right great toe stable with improving color and minimal discomfort. No drainage or open wound. Distal tip not fully perfused but no sign of wet or dry gangrene noted and may continue to improve. Suggest she see me outpatient to watch
the area and if distal soft tissue continues to demarcate resulting in necrosis, debridement will be considered. Air noted on xray appears to be due to the distal nail from the nail bed and is not concerning at this time. Unless her
condition suddenly worsens inpatient, will monitor in my office.
[2024-08-08] MEDS: ALDACTONE 50 MG PO (08:08)
[2024-08-08] MEDS: LOPRESSOR 50 MG PO ×2 (08:11→20:17)
[2024-08-08] MEDS: FEOSOL 325 MG PO (08:12)
[2024-08-08] MEDS: ASPIR LOW (ENTERIC COATED) 81 MG PO (08:12)
[2024-08-08] MEDS: VITAMIN B-12 1000 MCG PO (08:13)
[2024-08-08] MEDS: PLAVIX 75 MG PO (08:13)
[2024-08-08] MEDS: ORETIC 12.5 MG PO (08:13)
[2024-08-08] MEDS: ROCEPHIN 2000 MG IV (08:16)
[2024-08-08] MEDS: STERILE WATER FOR INJECTION 20 ML IV (08:17)
--- NOTE | 2024-08-08 10:06 | W.PN.HOSP.TC ---
Today's Communication/Plan
-
appreciate ID; continue IV abx and follow plans
appreciate Vascular/Podiatry
DC planning
Assessment / Plan
Assessment / Plan
69-year-old with PAD
Assessment:
Progressive and worsening ischemic right foot
- Clinically pregangrenous right foot with rest pain due to limb threatening ischemia
- CTA with multiple occlusive disease occluded right sided internal iliac system and SFA
- s/p left femoral endarterectomy, left to right femoro-femoral bypass, left iliac artery stent, aortogram done by Dr. Costello on 08/04/2024
- continue ASA/Statin/Plavix
- f/u Xray: Air within the dorsal soft tissues of the distal aspect of the right great toe. no OM. Podiatry evaluated, no surgical intervention required and feel like air due to the distal nail from the nail bed and is not concerning at
this time. OP Podiatry f/u.
- ID following: on Azactam/Rocephin/Flagyl
- PT/OT: SNF being explored
Acute kidney injury
- contrast-induced nephropathy versus NSAID use
- Creatinine improved
- Hold NSAIDs
- Nephrology following
Anemia
- p.o. iron and B12
Essential HTN
- continue Metoprolol, Aldactone
Hyperlipidemia
- continue Statin
atelectasis right lung
History of carotid stenosis status post TCAR
History of C3/C4 fusion 2021
Osteoporosis
- on Risedronate
Thyroid nodule
History of hepatitis C per records-Unclear details.
Ex-smoker
DVT ppx: Lovenox
Code: Full
Anticipated Discharge: > 48 hours
Subjective/Interval History
-
Date of Service: August 08, 2024
resting comfortably
Objective Data
-
Labs:
Laboratory Results
08/08/24
06:31
WBC 7.3
Hgb 9.5 L
Hct 29.5 L
Plt Count 339
Sodium 137
Potassium 4.2
Chloride 106
Carbon Dioxide 21 L
BUN 18 H
Creatinine 1.1 H
Glucose 98
Calcium 8.7
Vital Signs:
Vital Signs
Temp Pulse Resp BP Pulse Ox
98.3 F 92 18 121/69 99
08/08/24 07:10 08/08/24 08:08 08/08/24 07:10 08/08/24 08:11 08/08/24 07:10
I&O
08/07/24 08/08/24 08/09/24
06:59 06:59 06:59
Intake Total 600 / 600 540 / 540
Balance 600 / 600 540 / 540
Physical Exam
-
General: No Apparent Distress
HEENT: Normocephalic and Atraumatic
Respiratory: Negative Wheezes
Cardiac: Regular Rhythm and S1/S2
GI: Soft
Genito-urinary: No Costovertebral Tender
Musculoskeletal: Other (right big toe still with bluish discoloration, mild edema. Patient denies any pain but she does have some tenderness)
Neuro: AO x 3
Hematologic / Lymphatic: No Lymphadenopathy
Psych: Calm
Data Reviewed
-
Total Time Spent with Patient (in minutes): 41
Labs: Labs Reviewed by me
--- NOTE | 2024-08-08 15:27 | CM ---
CM following re: discharge planning.
Reviewed pt's chart, met with pt and pt's Arturo at bedside.
Pt is Postop day 4 Left ilio femoral extensive endarterectomy, continue supportive care.
Updated PT and OT evaluations noted - SNF level of are recommended,
Both pt and her have been informed that [facility], [facility] and [facility] offered a bed and pt preferred [facility].
According to MD pt most likely will be discharged on the weekend or Sunday.
CM initiated an auth from [facility] and [facility] for SNF level of care at [facility], spoke to sales representative electric service [employer], reference number: [id number]. Requested pt's clinical faxed to [phone]. Awaiting for an auth.
[facility] family resource coordinator is aware of pt's potential discharge on the weekend and she confirmed that will be accepted.
D/C plan: [facility] when medically stable and an auth available.
CM will follow to assist pt with discharge to [facility].
[2024-08-08] MEDS: ROXICODONE 5 MG PO (16:38)
[2024-08-08] MEDS: TYLENOL 650 MG PO (16:41)
--- NOTE | 2024-08-08 16:45 | W.PN.ID1 ---
Date of Service
Date of Service: August 08, 2024
Today's Communication
Monitor toe carefully for temperature,color,skin change, drainage
Assessment / Plan
1. Admission for bilateral foot pain caused by vascular compromise with vascular surgery repair of occlusion and resolution of pain
2. Great toe with less swelling, less edema with dark discoloration of nail and dusky skin with toe now warm to touch /patient denies pain
3. History of PVD seen in past and presently by Dr Costello
4. Consultation called for antibiotic choice in setting of ischemic tissue with threat of gangrene6. Patient with reported allergy to Levofloxacin and penicillin
5. Patient currently on Flagyl / Ceftriaxone which may be discontinued upon discharge to rehab facility
8. Patient currently afebrile without leukocytosis
9. Gangrene is possible in this setting, with recent compromised blood supply with discolored, cold toe with presence of air on imaging
However toe warm today and less swollen with less worrisome appearance
10. Podiatry consultation completed and suggests watchful monitoring for drainage, demarkation with no surgical intervention at this time
Chief Complaint
-: Other (swelling dark appearance of great toe left after vascular compromise)
Subjective / Review of Systems
Review of Systems: No Fever, No Chills, No Headache, No Pharyngitis, No Stiff Neck, No Swollen Lymph Nodes, No Cough, No Sputum Production, No Chest Pain, No Palpitations, No Abdominal Pain, No Nausea, No Vomiting, No Diarrhea, No Dysuria, No Joint
Pain and No Skin Rash
Vital Signs / Physical Exam
Vital Signs
Vital Signs
Temp Pulse Resp BP Pulse Ox
98.8 F 85 16 132/66 98
08/08/24 15:05 08/08/24 15:05 08/08/24 15:05 08/08/24 15:05 08/08/24 15:05
Physical Exam
Constitutional: No Acute Distress, Well Developed, Comfortable, Chronically Ill and Non-toxic
Head: Normocephalic
Eyes: Pupils Equal, Pupils Round, No Conjunctival Hemorrhage, Sclera Anicteric and Erythema
Oropharyngeal: Benign
Cardiovascular: Regular Rate
Pulmonary: Clear and Non Labored
Gastrointestinal: Soft, Non Tender, Distended, Non Distended, Normal Bowel Sounds, No Rebound and No Guarding
Extremities: Other (fair ROM walked with PT today)
Skin: Warm, Dry and Other (discoloration of great toe left slightly improved)
Wound: None
Neurological: Awake, Alert, Oriented and AO x 3
Psychological: Calm
Lines: PIV
Objective Data
Lab Data
Lab Results
08/08/24 06:31
08/08/24 06:31
ESR 67 mm/hour (0-20) H 08/05/24 13:40
PT 14.3 Sec (11.4-14.6) 08/05/24 04:14
INR 1.08 08/05/24 04:14
APTT 26.3 Sec (23.4-35.0) 08/05/24 04:14
Estimated Creat Clear 36 ml/min 08/08/24 06:31
Total Bilirubin 0.8 mg/dl (0.2-1.3) 08/01/24 06:36
AST 26 U/L (14-36) 08/01/24 06:36
ALT 17 U/L (0-35) 08/01/24 06:36
Alkaline Phosphatase 64 U/L (38-126) 08/01/24 06:36
C-Reactive Protein 24.40 mg/L (0.0-10.00) H 08/05/24 13:40
Most recent labs reviewed.
Microbiology: Report Reviewed
Other: Report Reviewed (left foot with no abscess some air noted ? under nail of great toe)
Care Review
Plan reviewed with: Physician
Total Time Spent with Patient (in minutes): 35
[2024-08-08] MEDS: LOVENOX 40 MG SC (17:14)
[2024-08-09] VITALS (7 sets, daily range): BP systolic 87–128; BP diastolic 53–68; PULSE 82–85; BMI 23.5
[2024-08-09] MEDS: FLUSH (NSS) 5 FLUSH IV
[2024-08-09 07:15] LABS: Hematocrit 29.7 % (37.0-47.0); Hemoglobin 9.7 g/dL (12.0-16.0); Mean Corp Hgb Conc. 32.7 g/dL (33.0-37.0); Mean Corpuscular Hgb 24.5 pg (27.0-31.0); Mean Platelet Volume 10.5 fL (7.4-10.4); Platelet Count 372 10^3/uL (130-400); Red Blood Cell Count 3.96 10^6/uL (4.20-5.40); Red Cell Dist. Width 14.6 % (11.5-14.5)
[2024-08-09 07:36] LABS: Blood Urea Nitrogen 19 mg/dl (7-17); Calcium 8.5 mg/dl (8.4-10.2); Carbon Dioxide 19 mmol/L (22-30); Chloride 108 mmol/L (98-107); Estimated Creatinine Clearance 36 ml/min; Glucose 109 mg/dl (70-99); Potassium 4.2 mmol/L (3.5-5.1); Sodium 138 mmol/L (135-145); eGFR 55.07
[2024-08-09] MEDS: VITAMIN B-12 1000 MCG PO (08:51)
[2024-08-09] MEDS: PLAVIX 75 MG PO (08:51)
[2024-08-09] MEDS: FEOSOL 325 MG PO (08:51)
[2024-08-09] MEDS: ALDACTONE 50 MG PO (08:53)
[2024-08-09] MEDS: ORETIC 12.5 MG PO (08:54)
[2024-08-09] MEDS: ASPIR LOW (ENTERIC COATED) 81 MG PO (08:54)
[2024-08-09] MEDS: LOPRESSOR 50 MG PO ×2 (08:59→19:41)
[2024-08-09] MEDS: CRESTOR 10 MG PO (08:59)
[2024-08-09] MEDS: FLAGYL 500 MG 100 IV (08:59)
[2024-08-09] MEDS: ROCEPHIN 2000 MG IV (09:00)
[2024-08-09] MEDS: STERILE WATER FOR INJECTION 20 ML IV (09:01)
--- NOTE | 2024-08-09 10:04 | W.PN.ID1 ---
Date of Service
Date of Service: August 09, 2024
Today's Communication
Narrow to cephalexin
Assessment / Plan
Critical limb ischemia lower extremities; hx L->R fem-fem bypass, (L) iliac art stent
Right hallux swelling; ?cellulitis
- Plain film with reported subungual air (?[place] of shadows vs real)
- Toe currently warm. No appreciable tissue emphysema
Recommendations:
Patient currently without fever or leukocytosis.
Not clear whether toe is infected, or postischemic
Narrow antibiotics to cephalexin with close observation.
Ultimately, if ischemia present, area may need to demarcate.
Chief Complaint
-: Other (Bilateral foot pain)
Subjective / Review of Systems
Patient seen and examined. Reports mild right hallux discomfort.
Review of Systems: No Fever and No Chills
Vital Signs / Physical Exam
Vital Signs
Vital Signs
Temp Pulse Resp BP Pulse Ox
98.4 F 77 16 126/62 98
08/09/24 07:17 08/09/24 08:59 08/09/24 07:17 08/09/24 08:59 08/09/24 07:17
Physical Exam
Constitutional: No Acute Distress, Comfortable and Non-toxic
Eyes: Sclera Anicteric
Cardiovascular: S1/S2; Negative S3/S4
Pulmonary: Non Labored
Gastrointestinal: Soft and Non Tender
Extremities: Other (Right hallux erythematous; mildly edematous. No palpable tissue emphysema.); Negative Edema
Neurological: Awake and Alert
Psychological: Calm
Objective Data
Lab Data
Lab Results
08/09/24 06:51
08/09/24 06:51
ESR 67 mm/hour (0-20) H 08/05/24 13:40
PT 14.3 Sec (11.4-14.6) 08/05/24 04:14
INR 1.08 08/05/24 04:14
APTT 26.3 Sec (23.4-35.0) 08/05/24 04:14
Estimated Creat Clear 36 ml/min 08/09/24 06:51
Total Bilirubin 0.8 mg/dl (0.2-1.3) 08/01/24 06:36
AST 26 U/L (14-36) 08/01/24 06:36
ALT 17 U/L (0-35) 08/01/24 06:36
Alkaline Phosphatase 64 U/L (38-126) 08/01/24 06:36
C-Reactive Protein 24.40 mg/L (0.0-10.00) H 08/05/24 13:40
Most recent labs reviewed.
Imaging:
08/07/2024 X-ray right foot: There is air density within the dorsal soft tissues of the distal aspect of the right great toe, in this patient with reported history of great toe ischemia. No bony destruction is evident radiographically, with no
findings to suggest osteomyelitis. Mild to moderate hallux valgus deformity. Mild to moderate degenerative change of the first metatarsophalangeal joint. Mild degenerative change of the great toe interphalangeal joint. Vascular calcification is
noted. Please see full dictation for additional detail. Film personally viewed.
--- NOTE | 2024-08-09 11:51 | W.PN.HOSP.TC ---
Today's Communication/Plan
-
dc to SNF in 24 hours
Assessment / Plan
Assessment / Plan
Assessment:
Progressive and worsening ischemic right foot
- Clinically pregangrenous right foot with rest pain due to limb threatening ischemia
- CTA with multiple occlusive disease occluded right sided internal iliac system and SFA
- s/p left femoral endarterectomy, left to right femoro-femoral bypass, left iliac artery stent, aortogram done by Dr. Costello on 08/04/2024
- continue ASA/Statin/Plavix
- f/u Xray: Air within the dorsal soft tissues of the distal aspect of the right great toe. no OM. Podiatry evaluated, no surgical intervention required and feel like air due to the distal nail from the nail bed and is not concerning at
this time. OP Podiatry f/u.
- ID following: Abx narrowed to Keflex for 5 additional days
- PT/OT: SNF
Acute kidney injury
- contrast-induced nephropathy versus NSAID use
- Creatinine improved
- Hold NSAIDs
- Nephrology following
Anemia
- p.o. iron and B12
Essential HTN
- continue Metoprolol, Aldactone
Hyperlipidemia
- continue Statin
atelectasis right lung
History of carotid stenosis status post TCAR
History of C3/C4 fusion 2021
Osteoporosis
- on Risedronate
Thyroid nodule
History of hepatitis C per records-Unclear details.
Ex-smoker
DVT ppx: Lovenox
Code: Full
Anticipated Discharge: Within 24 hours
Subjective/Interval History
-
Date of Service: August 09, 2024
resting comfortably, no complaints at present
Objective Data
-
Labs:
Laboratory Results
08/09/24
06:51
WBC 8.0
Hgb 9.7 L
Hct 29.7 L
Plt Count 372
Sodium 138
Potassium 4.2
Chloride 108 H
Carbon Dioxide 19 L
BUN 19 H
Creatinine 1.1 H
Glucose 109 H
Calcium 8.5
Vital Signs:
Vital Signs
Temp Pulse Resp BP Pulse Ox
98.4 F 77 16 126/62 98
08/09/24 07:17 08/09/24 08:59 08/09/24 07:17 08/09/24 08:59 08/09/24 07:17
I&O
08/08/24 08/09/24 08/10/24
06:59 06:59 06:59
Intake Total 540 / 540 1410 / 1410
Output Total 600 / 600
Balance 540 / 540 810 / 810
Physical Exam
-
General: No Apparent Distress
HEENT: Normocephalic and Atraumatic
Respiratory: Negative Wheezes
Cardiac: Regular Rhythm and S1/S2
GI: Soft
Neuro: AO x 3
Psych: Calm
Data Reviewed
-
Total Time Spent with Patient (in minutes): 41
Labs: Labs Reviewed by me
[2024-08-09] MEDS: ZOFRAN 4 MG IV (14:33)
--- NOTE | 2024-08-09 16:21 | PTCARENOTE ---
Patient had complained initially of nausea, gave IV Zofran. More specifically, 'nauseous when getting out of bed.' Attempted to complete full set of orthostatic vital signs to confirm if it's BP related. Did have drop in BP when lying to
sitting/patient couldn't tolerate standing long enough for RN to get BP. However, went returning patient back to bed BP 87/55 (Initial BP 128/65->112/59). Notified attending provider.
[2024-08-09] MEDS: KEFLEX 500 MG PO ×2 (17:07→22:11)
[2024-08-09] MEDS: NSS 1000 IV (17:07)
[2024-08-09] MEDS: LOVENOX 40 MG SC (17:08)
[2024-08-10] MEDS: DILAUDID 0.5 MG IV ×2 (01:57→12:48)
[2024-08-10 06:34] LABS: Hematocrit 29.2 % (37.0-47.0); Hemoglobin 9.4 g/dL (12.0-16.0); Mean Corp Hgb Conc. 32.2 g/dL (33.0-37.0); Mean Corpuscular Hgb 24.5 pg (27.0-31.0); Mean Platelet Volume 10.7 fL (7.4-10.4); Platelet Count 382 10^3/uL (130-400); Red Blood Cell Count 3.84 10^6/uL (4.20-5.40); Red Cell Dist. Width 14.9 % (11.5-14.5); White Blood Cell Count 7.1 10^3/uL (4.8-10.8)
[2024-08-10 06:45] LABS: Blood Urea Nitrogen 14 mg/dl (7-17); Calcium 8.2 mg/dl (8.4-10.2); Carbon Dioxide 21 mmol/L (22-30); Chloride 110 mmol/L (98-107); Estimated Creatinine Clearance 39 ml/min; Glucose 106 mg/dl (70-99); Potassium 4.3 mmol/L (3.5-5.1); Sodium 138 mmol/L (135-145); eGFR > 60.00
[2024-08-10 07:08] VITALS: BP 115/58
[2024-08-10] MEDS: KEFLEX 500 MG PO ×3 (08:39→22:24)
[2024-08-10] MEDS: PLAVIX 75 MG PO (08:39)
[2024-08-10] MEDS: ALDACTONE 50 MG PO (08:39)
[2024-08-10] MEDS: VITAMIN B-12 1000 MCG PO (08:39)
[2024-08-10] MEDS: ASPIR LOW (ENTERIC COATED) 81 MG PO (08:39)
[2024-08-10] MEDS: CRESTOR 10 MG PO (08:39)
[2024-08-10] MEDS: ORETIC 12.5 MG PO (08:39)
[2024-08-10] MEDS: LOPRESSOR 50 MG PO ×2 (08:39→20:11)
[2024-08-10] MEDS: FEOSOL 325 MG PO (08:39)
--- NOTE | 2024-08-10 09:28 | W.PN.ID1 ---
Date of Service
Date of Service: August 10, 2024
Today's Communication
Continue antibiotics.
Assessment / Plan
Critical limb ischemia lower extremities; hx L->R fem-fem bypass, (L) iliac art stent (08/04/24)
Right hallux swelling; ?cellulitis
- Plain film with reported subungual air (?[place] of shadows vs real?)
- Toe currently warm. No appreciable tissue emphysema.
Recommendations:
Patient currently without fever or leukocytosis.
Not clear whether toe is infected, or postischemic changes.
Continue with cephalexin with close observation.
Ultimately, if ischemia present, area may need to demarcate.
����������������������������������������������������������
Chief Complaint
-: Other (Bilateral foot pain)
Subjective / Review of Systems
Patient seen and examined. Reports ongoing right hallux discomfort.
Review of Systems: No Fever and No Chills
Vital Signs / Physical Exam
Vital Signs
Vital Signs
Temp Pulse Resp BP Pulse Ox
98.4 F 88 16 115/58 97
08/10/24 07:08 08/10/24 07:08 08/10/24 07:08 08/10/24 07:08 08/10/24 07:08
Physical Exam
Constitutional: No Acute Distress and Comfortable
Eyes: Sclera Anicteric
Cardiovascular: S1/S2; Negative S3/S4
Pulmonary: Non Labored
Gastrointestinal: Soft and Non Tender
Extremities: Other (Right hallux erythematous; mildly edematous. No palpable tissue emphysema.); Negative Edema
Neurological: Awake and Alert
Psychological: Calm
Objective Data
Lab Data
Lab Results
08/10/24 05:56
08/10/24 05:56
ESR 67 mm/hour (0-20) H 08/05/24 13:40
PT 14.3 Sec (11.4-14.6) 08/05/24 04:14
INR 1.08 08/05/24 04:14
APTT 26.3 Sec (23.4-35.0) 08/05/24 04:14
Estimated Creat Clear 39 ml/min 08/10/24 05:56
Total Bilirubin 0.8 mg/dl (0.2-1.3) 08/01/24 06:36
AST 26 U/L (14-36) 08/01/24 06:36
ALT 17 U/L (0-35) 08/01/24 06:36
Alkaline Phosphatase 64 U/L (38-126) 08/01/24 06:36
C-Reactive Protein 24.40 mg/L (0.0-10.00) H 08/05/24 13:40
Most recent labs reviewed.
Imaging:
08/07/2024 X-ray right foot: There is air density within the dorsal soft tissues of the distal aspect of the right great toe, in this patient with reported history of great toe ischemia. No bony destruction is evident radiographically, with no
findings to suggest osteomyelitis. Mild to moderate hallux valgus deformity. Mild to moderate degenerative change of the first metatarsophalangeal joint. Mild degenerative change of the great toe interphalangeal joint. Vascular calcification is
noted. Please see full dictation for additional detail. Film personally viewed.
Care Review
Plan reviewed with: Physician (Hospitalist)
[2024-08-10 09:50] VITALS: BP 100/56; BP 106/63; BP 108/56; PULSE 78; PULSE 81; PULSE 83
--- NOTE | 2024-08-10 11:27 | W.PN.HOSP.TC ---
Today's Communication/Plan
-
reduce Aldactone to 25mg
continue Keflex
awaiting auth/bed for dispo
Assessment / Plan
Assessment / Plan
Assessment:
Progressive and worsening ischemic right foot
- Clinically pregangrenous right foot with rest pain due to limb threatening ischemia
- CTA with multiple occlusive disease occluded right sided internal iliac system and SFA
- s/p left femoral endarterectomy, left to right femoro-femoral bypass, left iliac artery stent, aortogram done by Dr. Costello on 08/04/2024
- continue ASA/Statin/Plavix
- f/u Xray: Air within the dorsal soft tissues of the distal aspect of the right great toe. no OM. Podiatry evaluated, no surgical intervention required and feel like air due to the distal nail from the nail bed and is not concerning at
this time. OP Podiatry f/u.
- ID following: Abx narrowed to Keflex through 08/13
- PT/OT: SNF
Acute kidney injury
- contrast-induced nephropathy versus NSAID use
- Creatinine improved
- Hold NSAIDs
- Nephrology following
Anemia
- p.o. iron and B12
Essential HTN
- continue Metoprolol, Aldactone
Hyperlipidemia
- continue Statin
atelectasis right lung
History of carotid stenosis status post TCAR
History of C3/C4 fusion 2021
Osteoporosis
- on Risedronate
Thyroid nodule
History of hepatitis C per records-Unclear details.
Ex-smoker
DVT ppx: Lovenox
Code: Full
Anticipated Discharge: 24 - 48 hours
Subjective/Interval History
-
Date of Service: August 10, 2024
reports R hallux discomfort
no fevers
Objective Data
-
Labs:
Laboratory Results
08/10/24
05:56
WBC 7.1
Hgb 9.4 L
Hct 29.2 L
Plt Count 382
Sodium 138
Potassium 4.3
Chloride 110 H
Carbon Dioxide 21 L
BUN 14
Creatinine 1.0
Glucose 106 H
Calcium 8.2 L
Vital Signs:
Vital Signs
Temp Pulse Resp BP Pulse Ox
98.4 F 88 16 115/58 97
08/10/24 07:08 08/10/24 07:08 08/10/24 07:08 08/10/24 07:08 08/10/24 07:08
I&O
08/09/24 08/10/24 08/11/24
06:59 06:59 06:59
Intake Total 1410 / 1410 780 / 780
Output Total 600 / 600
Balance 810 / 810 780 / 780
Physical Exam
-
General: No Apparent Distress
HEENT: Normocephalic
Respiratory: Negative Wheezes
Cardiac: Regular Rhythm and S1/S2
GI: Soft
Musculoskeletal: No Edema
Skin: Other (Right hallux erythematous; mildly edematous. No palpable tissue emphysema)
Neuro: AO x 3
Psych: Calm
Data Reviewed
-
Total Time Spent with Patient (in minutes): 42
Labs: Labs Reviewed by me
[2024-08-10] MEDS: FLUSH (NSS) 2 FLUSH IV (12:48)
[2024-08-10 15:45] VITALS: BP 115/57
[2024-08-10] MEDS: LOVENOX 40 MG SC (17:46)
[2024-08-10] MEDS: ROXICODONE 5 MG PO (20:06)
[2024-08-10] MEDS: FLUSH (NSS) 1 FLUSH IV (20:10)
[2024-08-10 23:46] VITALS: BP 116/60
[2024-08-11] MEDS: ROXICODONE 5 MG PO ×3 (01:11→11:40)
[2024-08-11 06:02] VITALS: BMI 23.6
[2024-08-11 07:00] VITALS: BP 109/55
[2024-08-11 07:38] LABS: Hematocrit 29.6 % (37.0-47.0); Hemoglobin 9.5 g/dL (12.0-16.0); Mean Corp Hgb Conc. 32.1 g/dL (33.0-37.0); Mean Corpuscular Hgb 24.5 pg (27.0-31.0); Mean Corpuscular Volume 76.5 fL (81.0-99.0); Mean Platelet Volume 9.9 fL (7.4-10.4); Platelet Count 408 10^3/uL (130-400); Red Blood Cell Count 3.87 10^6/uL (4.20-5.40); Red Cell Dist. Width 15.1 % (11.5-14.5); White Blood Cell Count 7.1 10^3/uL (4.8-10.8)
[2024-08-11 09:00] VITALS: BP 113/64; BP 117/66; BP 119/57; PULSE 79; PULSE 87
[2024-08-11] MEDS: VITAMIN B-12 1000 MCG PO (09:10)
[2024-08-11] MEDS: PLAVIX 75 MG PO (09:10)
[2024-08-11] MEDS: ASPIR LOW (ENTERIC COATED) 81 MG PO (09:10)
[2024-08-11] MEDS: ALDACTONE 25 MG PO (09:10)
[2024-08-11] MEDS: CRESTOR 10 MG PO (09:10)
[2024-08-11] MEDS: ORETIC 12.5 MG PO (09:11)
[2024-08-11] MEDS: KEFLEX 500 MG PO (09:11)
[2024-08-11] MEDS: LOPRESSOR 50 MG PO (09:11)
[2024-08-11] MEDS: FEOSOL 325 MG PO (09:11)
[2024-08-11 09:31] LABS: Blood Urea Nitrogen 12 mg/dl (7-17); Calcium 8.4 mg/dl (8.4-10.2); Carbon Dioxide 20 mmol/L (22-30); Chloride 108 mmol/L (98-107); Estimated Creatinine Clearance 39 ml/min; Glucose 105 mg/dl (70-99); Potassium 4.7 mmol/L (3.5-5.1); Sodium 136 mmol/L (135-145); eGFR > 60.00
--- NOTE | 2024-08-11 10:27 | W.PN.ID1 ---
Date of Service
Date of Service: August 11, 2024
Today's Communication
Continue current antibiotics. See below�
Assessment / Plan
Critical limb ischemia lower extremities; hx L->R fem-fem bypass, (L) iliac art stent (08/04/24)
Right hallux swelling; ?cellulitis ?post-ischemic
- Plain film with reported subungual air (?[place] of shadows vs real?)
- Toe currently warm. No appreciable tissue emphysema.
Recommendations:
Patient currently without fever or leukocytosis.
Not clear whether toe is infected, or post-ischemic changes.
Continue with cephalexin another 5 days with close observation of toe appearance.
Ultimately, if ischemia present, area may need to demarcate.
at the bedside, and both patient and counseled to follow-up for any change to the toe appearance daily, and to contact Podiatry if any seen. Counseled to watch for the development of any wet gangrene.
����������������������������������������������������������
Chief Complaint
-: Other (Bilateral foot pain)
Subjective / Review of Systems
Review of Systems: No Fever and No Chills
Vital Signs / Physical Exam
Vital Signs
Vital Signs
Temp Pulse Resp BP Pulse Ox
98.4 F 82 14 109/55 98
08/11/24 07:00 08/11/24 09:10 08/11/24 07:00 08/11/24 09:10 08/11/24 07:00
Physical Exam
Constitutional: No Acute Distress, Comfortable, Chronically Ill and Non-toxic
Eyes: Sclera Anicteric
Cardiovascular: S1/S2; Negative S3/S4
Pulmonary: Non Labored
Gastrointestinal: Soft and Non Tender
Extremities: Other (Right hallux erythematous; mildly edematous. No palpable tissue emphysema.); Negative Edema
Neurological: Awake and Alert
Psychological: Calm
Objective Data
Lab Data
Lab Results
08/11/24 07:22
08/11/24 07:22
ESR 67 mm/hour (0-20) H 08/05/24 13:40
PT 14.3 Sec (11.4-14.6) 08/05/24 04:14
INR 1.08 08/05/24 04:14
APTT 26.3 Sec (23.4-35.0) 08/05/24 04:14
Estimated Creat Clear 39 ml/min 08/11/24 07:22
Total Bilirubin 0.8 mg/dl (0.2-1.3) 08/01/24 06:36
AST 26 U/L (14-36) 08/01/24 06:36
ALT 17 U/L (0-35) 08/01/24 06:36
Alkaline Phosphatase 64 U/L (38-126) 08/01/24 06:36
C-Reactive Protein 24.40 mg/L (0.0-10.00) H 08/05/24 13:40
Most recent labs reviewed.
Imaging:
08/07/2024 X-ray right foot: There is air density within the dorsal soft tissues of the distal aspect of the right great toe, in this patient with reported history of great toe ischemia. No bony destruction is evident radiographically, with no
findings to suggest osteomyelitis. Mild to moderate hallux valgus deformity. Mild to moderate degenerative change of the first metatarsophalangeal joint. Mild degenerative change of the great toe interphalangeal joint. Vascular calcification is
noted. Please see full dictation for additional detail. Film personally viewed.
--- NOTE | 2024-08-11 10:28 | CM ---
CM following re: discharge planning.
Reviewed pt's chart, met wit pt and pt's at bedside.
According to MD pt is medically stable to be discharged today. Both pt and her are aware, expressed their agreement. IMM reviewed, placed on chart, pt has a copy.
Per [facility] Community serving Melva, pt is approved for SNF level of care at [facility] from yesterday 08/10/24 till 08/13/24 with LCD and NRD 08/13/24. Auth: [id number].
CM spoke to [facility] director radiation oncology and she confirmed they do have a bed available and pt is accepted for admission today and 2:00 p.m. oyster picker time requested. Auth information forwarded to [facility] director radiation oncology. Per care
and community associate Gabi, their compute system is down and she cannot give me more information on approval. [facility] director radiation oncology stated she will get it from [facility]. Pt is accepted for admission today.
to arrange ambulance transport BLS with requested oyster picker time 2:00 p.m. PMNC completed and left with [facility] nursing report: [phone]
Discharge instructions fax: [phone]
D/C plan: [facility].
--- NOTE | 2024-08-11 11:36 | W.PN.HOSP.TC ---
Today's Communication/Plan
-
dc to SNF today
Assessment / Plan
Assessment / Plan
Assessment:
Progressive and worsening ischemic right foot
- Clinically pregangrenous right foot with rest pain due to limb threatening ischemia
- CTA with multiple occlusive disease occluded right sided internal iliac system and SFA
- s/p left femoral endarterectomy, left to right femoro-femoral bypass, left iliac artery stent, aortogram done by Dr. Costello on 08/04/2024
- continue ASA/Statin/Plavix
- f/u Xray: Air within the dorsal soft tissues of the distal aspect of the right great toe. no OM. Podiatry evaluated, no surgical intervention required and feel like air due to the distal nail from the nail bed and is not concerning at
this time. OP Podiatry f/u.
- ID following: Abx narrowed to Keflex through 08/16
- PT/OT: SNF
Acute kidney injury
- contrast-induced nephropathy versus NSAID use
- Creatinine improved
- Hold NSAIDs
- Nephrology following
Anemia
- p.o. iron and B12
Essential HTN
- continue Metoprolol, Aldactone
Hyperlipidemia
- continue Statin
atelectasis right lung
History of carotid stenosis status post TCAR
History of C3/C4 fusion 2021
Osteoporosis
- on Risedronate
Thyroid nodule
History of hepatitis C per records-Unclear details.
Ex-smoker
DVT ppx: Lovenox
Code: Full
More than 30 minutes spent in discharge including
Final examination of the patient
Summarizing hospital stay
Instructions for continuing care to all relevant caregivers
Preparation of discharge records, prescriptions, and referral forms
Total time spent (in minutes): 42
Anticipated Discharge: Today
Subjective/Interval History
-
Date of Service: August 11, 2024
resting comfortably
Objective Data
-
Labs:
Laboratory Results
08/11/24
07:22
WBC 7.1
Hgb 9.5 L
Hct 29.6 L
Plt Count 408 H
Sodium 136
Potassium 4.7
Chloride 108 H
Carbon Dioxide 20 L
BUN 12
Creatinine 1.0
Glucose 105 H
Calcium 8.4
Vital Signs:
Vital Signs
Temp Pulse Resp BP Pulse Ox
98.4 F 82 14 109/55 98
08/11/24 07:00 08/11/24 09:10 08/11/24 07:00 08/11/24 09:10 08/11/24 07:00
I&O
08/10/24 08/11/24 08/12/24
06:59 06:59 06:59
Intake Total 780 / 780 840 / 840
Output Total 2 / 2
Balance 780 / 780 838 / 838
Physical Exam
-
General: No Apparent Distress
HEENT: Normocephalic and Atraumatic
Respiratory: Negative Wheezes
Cardiac: Regular Rhythm and S1/S2
GI: Soft and Nontender
Musculoskeletal: No Edema
Neuro: AO x 3
Hematologic / Lymphatic: No Lymphadenopathy
Psych: Calm
Data Reviewed
-
Total Time Spent with Patient (in minutes): 42
Labs: Labs Reviewed by me
--- NOTE | 2024-08-11 11:39 | W.DS.TRANS ---
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
-
Discharge Instructions:
Discharge Diagnosis/Procedures Ischemia of R foot s/p femoral endarterectomy,
left to right femoro-femoral bypass, left iliac
artery stent, aortogram done by Dr. Costello on
2024
Diet As tolerated,Low Cholesterol
Activity No strenuous activity
Driving Restrictions Not until seen by your Dr
Bathing Restrictions OK to Shower
Instructions:
Stand-Alone Forms: Vascular Surg Discharge Instr
Changes to Home Medications: No
Discharge Medications:
DC Medications w/original date entered in [facility]
aspirin 81 mg tablet,delayed release (Adult Low Dose Aspirin) 81 mg PO DAILY Blood Clot Prevention/Tx 11/13/17
docusate sodium 100 mg capsule (Colace) 100 mg PO DAILYPRN PRN constipation 11/13/17
hydrochlorothiazide 12.5 mg capsule 12.5 mg PO DAILY Fluid Retention/Swelling 11/13/17
metoprolol tartrate 50 mg tablet 50 mg PO BID Blood Pressure 11/13/17
multivitamin 1 tab PO DAILY Supplement 07/24/23
risedronate 150 mg tablet 150 mg PO QMONTH BONE 07/24/23
rosuvastatin 10 mg tablet 10 mg PO DAILY High Cholesterol 08/01/23
ferrous sulfate 137 mg (45 mg iron) tablet,extended release (Slow Fe) 137 mg PO DAILY Supplement 07/31/24
clopidogrel 75 mg tablet 75 mg PO DAILY #30 tabs 08/10/24
cyanocobalamin (vitamin B-12) 1,000 mcg tablet (Vitamin B-12) 1,000 mcg PO DAILY #30 tabs 08/10/24
diclofenac sodium 1 % topical gel (Voltaren Arthritis Pain) 2 g topical QIDPRN PRN leg pain #0 grams 08/10/24
oxycodone 5 mg tablet 5 mg PO Q4HPRN PRN moderate pain #10 tabs 08/10/24
spironolactone 25 mg tablet 25 mg PO DAILY #30 tabs 08/10/24
cephalexin 500 mg capsule 500 mg PO TID #18 caps 08/11/24
Home Medication Changes
Pending Results: No
Total time spent discharging patient (in min): 41
[2024-08-11 13:56] VITALS: BP 91/57
== END 2024-08-11 14:12 | DRG 271 ==
LOC: 2 NORTH 20:03
PROVIDERS: Internal Medicine; Nurse Practitioner; Nurse Practitioner Acute Care; ADMITTING PHYSICIAN Internal Medicine; ATTENDING PHYSICIAN Internal Medicine; CONSULT PHYSICIAN Internal Medicine Critical Care Medicine; CONSULT PHYSICIAN Podiatrist Foot & Ankle Surgery; CONSULT PHYSICIAN Surgery Vascular Surgery; EMERGENCY PHYSICIAN Emergency Medicine; OTHER PHYSICIAN Hospitalist; OTHER PHYSICIAN Internal Medicine; OTHER PHYSICIAN Internal Medicine Cardiovascular Disease
PROC: 04CL0ZZ Extirpation of Matter from Left Femoral Artery, Open Approach (ICD-10-PCS; 2024-08-04)
PROC: 041L0JH Bypass Left Femoral Artery to Right Femoral Artery with Synthetic Substitute, Open Approach (ICD-10-PCS; 2024-08-04)
PROC: 04CJ0ZZ Extirpation of Matter from Left External Iliac Artery, Open Approach (ICD-10-PCS; 2024-08-04)
PROC: 04UJ0KZ Supplement Left External Iliac Artery with Nonautologous Tissue Substitute, Open Approach (ICD-10-PCS; 2024-08-04)
PROC: 047D3DZ Dilation of Left Common Iliac Artery with Intraluminal Device, Percutaneous Approach (ICD-10-PCS; 2024-08-04)
DX: I70.221 Atherosclerosis of native arteries of extremities with rest pain, right leg (principal); E87.20 Acidosis, unspecified; N17.9 Acute kidney failure, unspecified; J98.11 Atelectasis; I74.5 Embolism and thrombosis of iliac artery; I70.222 Atherosclerosis of native arteries of extremities with rest pain, left leg; M79.674 Pain in right toe(s); E78.00 Pure hypercholesterolemia, unspecified; I12.9 Hypertensive chronic kidney disease with stage 1 through stage 4 chronic kidney disease, or unspecified chronic kidney disease; I48.91 Unspecified atrial fibrillation; N18.31 Chronic kidney disease, stage 3a; I25.10 Atherosclerotic heart disease of native coronary artery without angina pectoris; H35.039 Hypertensive retinopathy, unspecified eye; M16.0 Bilateral primary osteoarthritis of hip; M81.0 Age-related osteoporosis without current pathological fracture; E04.1 Nontoxic single thyroid nodule; F17.200 Nicotine dependence, unspecified, uncomplicated; D64.9 Anemia, unspecified; Z88.0 Allergy status to penicillin; Z88.8 Allergy status to other drugs, medicaments and biological substances; Z88.1 Allergy status to other antibiotic agents; Z91.040 Latex allergy status; Z79.82 Long term (current) use of aspirin; Z82.49 Family history of ischemic heart disease and other diseases of the circulatory system; Z80.9 Family history of malignant neoplasm, unspecified; Z82.3 Family history of stroke; Z86.19 Personal history of other infectious and parasitic diseases; Z98.1 Arthrodesis status
CPT/HCPCS: 88304; 88311; 35661; 37221; 71045; 73630; 75635; 80048; 80053; 80061; 82607; 82728; 82962; 83036; 83540; 83550; 83735; 84100; 84550; 85025; 85027; 85610; 85652; 85730; 86140; 86850; 86900; 86901; 93005; 96361; 96365; 96366; 96375; 97116; 97163; 97167; 97530; 97535; 99291; C1769; C1874; C1894; Q9967

== ENCOUNTER → 2024-09-11 10:04 | Outpatient (REF) | payer OTHER, SELFPAY | LOC: DHVS 10:04 | PROVIDERS: ATTENDING PHYSICIAN Physician Assistant; REFERRING PHYSICIAN Registered Nurse | DX: I73.9 Peripheral vascular disease, unspecified (principal) | CPT/HCPCS: 93922; 93925; 93978 ==

== ENCOUNTER 2024-10-20 06:31 | Day surgery (SDC) | payer OTHER, SELFPAY | END 2024-10-20 06:32 | disposition home or self-care (01) | LOC: GI 06:31 | PROVIDERS: ATTENDING PHYSICIAN Internal Medicine Gastroenterology; FAMILY PHYSICIAN Family Medicine | DX: E61.1 Iron deficiency (principal); Z53.8 Procedure and treatment not carried out for other reasons; Z86.0100 Personal history of colon polyps, unspecified; Z79.02 Long term (current) use of antithrombotics/antiplatelets | CPT/HCPCS: 45378; G0378 ==

== ENCOUNTER 2024-11-12 06:20 | Day surgery (SDC) | payer OTHER, SELFPAY ==
[2024-11-12] VITALS (11 sets, daily range): BP systolic 113–161; BP diastolic 57–80; BMI 23.8
[2024-11-12 07:07] LABS: Hematocrit 35.7 % (37.0-47.0); Hemoglobin 10.9 g/dL (12.0-16.0); Mean Corp Hgb Conc. 30.5 g/dL (33.0-37.0); Mean Corpuscular Volume 77.9 fL (81.0-99.0); Platelet Count 374 10^3/uL (130-400); Red Cell Dist. Width 15.3 % (11.5-14.5)
[2024-11-12] MEDS: PLAVIX 75 MG PO (07:09)
[2024-11-12] MEDS: LOW STRENGTH ASPIRIN 81 MG PO (07:09)
[2024-11-12] MEDS: NSS 500 IV (07:09)
[2024-11-12 07:18] LABS: APTT 24.6 Sec (23.4-35.0); INR 0.99; PT 13.6 Sec (11.4-14.6)
[2024-11-12 07:36] LABS: Blood Urea Nitrogen 14 mg/dl (7-17); Calcium 9.3 mg/dl (8.4-10.2); Carbon Dioxide 25 mmol/L (22-30); Chloride 107 mmol/L (98-107); Estimated Creatinine Clearance 30 ml/min; Glucose 110 mg/dl (70-99); Potassium 4.7 mmol/L (3.5-5.1); Sodium 141 mmol/L (135-145); eGFR 45.07
--- NOTE | 2024-11-12 09:00 | W.SUR.POST ---
Surgical Immediate Post Op
Note
Pre Op Diagnosis: PAD, RLE wound
Post Op Diagnosis: PAD, RLE wound
Procedure Performed: RLE diagnostic angiogram
Primary Surgeon: Efren Costello MD
Secondary Surgeons: N/A
Anesthesia: MAC
Estimated Blood Loss: 2ml
Fluids: See Anesthesia flow sheet
Drains/Shunts: N/A
Specimens/Cultures: N/A
Doppler/Duplex/Angio (Y/N): Y
Complications: None
Operative Findings: Possible target for bypass
[2024-11-12] MEDS: NSS 1000 IV (09:15)
[2024-11-12] MEDS: TYLENOL 650 MG PO (10:50)
--- NOTE | 2024-11-12 11:38 | OR.RPT ---
Operative Report
Operative Report
PROCEDURE DATE: 11/12/2024
Preoperative diagnosis:
1. Chronic limb threatening ischemia right lower extremity.
2. Severe bilateral lower extremity multilevel peripheral arterial disease status post extensive left femoral endarterectomy, left iliac stenting, left to right femoral to femoral artery bypass graft.
Postoperative diagnosis: Same
Procedure:
1. Duplex assisted cannulation of left common femoral artery/carranza of femoral to femoral artery bypass graft.
2. Right lower extremity diagnostic arteriogram.
Surgeon: Pravin
Mobile Lounge Driver Or Operator: None
Complications: None
Anesthesia: Local, sedation
Fluoroscopy:
1.9 min
11 mGy
3.40 gy.cm2
Indications for procedure:
History of inflow revascularization secondary to ischemic rest pain. Rest pain resolved. However patient now with right first toe tissue loss. Risk/benefits/alternatives of diagnostic angiography fully discussed. Patient understood all wished to
proceed. Plan was for diagnostic angiogram to identify anatomy/distal target for anticipated bypass if needed.
Description of procedure:
Patient was identified, brought to the operating room. Placed on the table in the supine position. After the adequate administration of anesthesia, the patient was prepped and draped in the standard surgical fashion. A standard preoperative
timeout was undertaken and everybody was in agreement with the plan.
The left common femoral artery/carranza of femoral to femoral artery bypass graft was accessed with a micropuncture kit under direct duplex ultrasound guidance. Right lower extremity arteriogram was obtained through the micropuncture sheath. Findings
as follows:
Common femoral artery: Minimally visualized but patent proximal to the femoral to femoral artery bypass graft which anastomosed into the profunda. Some disease in the common femoral artery as noted on prior imaging.
Profunda femoris artery: Widely patent anastomosis of femoral to femoral bypass graft onto profunda. Profunda was widely patent with good collateralization from.
Superficial femoral artery: Chronically occluded. In the midsegment, there was a small region/segment of flow but minimal, and severely heavily calcified and occluded through the remainder.
Popliteal artery: Reconstituted flow in the behind the knee popliteal artery. Below the knee popliteal artery slightly small but reasonable sized vessel with no definitive stenosis (likely chronic plaque.
Anterior tibial artery: Patent, dominant runoff vessel to the foot. Just beyond the origin about 2 to 3 cm after the origin there may have been a mild to moderate stenosis. But the remainder the artery was reasonably patent. Some eccentric plaque
noted throughout. It did cross the ankle to give rise to the dorsalis pedis artery.
Tibial peroneal trunk: Patent, somewhat small in stature.
Peroneal artery: Patent down to the level of the ankle with some collateralization at the level of the ankle.
Posterior tibial artery: Chronically occluded.
At this point I was satisfied with the images. I concluded that patient likely would require a femoral/profunda to either popliteal below the knee or anterior tibial artery (likely a better target) bypass if needed.
At this point all catheters and wires were withdrawn. The micropuncture sheath was withdrawn and manual pressure was applied to the puncture site. Full hemostasis was noted. The patient was transferred to the recovery room in stable condition.
The patient tolerated procedure well.
== END 2024-11-12 11:38 | disposition home or self-care (01) ==
LOC: CATH 06:20
PROVIDERS: ATTENDING PHYSICIAN Surgery Vascular Surgery; OTHER PHYSICIAN Internal Medicine Cardiovascular Disease; PRIMARYCARE PHYSICIAN Physician Assistant Medical
DX: I70.223 Atherosclerosis of native arteries of extremities with rest pain, bilateral legs (principal); Z95.820 Peripheral vascular angioplasty status with implants and grafts
CPT/HCPCS: 75710; 36140; 80048; 85027; 85610; 85730; 86850; 86900; 86901; C1769; C1894; Q9967

== ENCOUNTER → 2024-11-24 11:02 | Outpatient (REF) | payer OTHER, SELFPAY | LOC: RAD 11:02 | PROVIDERS: ATTENDING PHYSICIAN Surgery Vascular Surgery; FAMILY PHYSICIAN Physician Assistant Medical; OTHER PHYSICIAN Specialist; REFERRING PHYSICIAN Internal Medicine Cardiovascular Disease | DX: I73.9 Peripheral vascular disease, unspecified (principal) | CPT/HCPCS: 93970 ==

== ENCOUNTER → 2024-12-29 07:57 | Outpatient (REF) | payer OTHER, SELFPAY | LOC: RAD 07:57 | PROVIDERS: ATTENDING PHYSICIAN Surgery Vascular Surgery; FAMILY PHYSICIAN Physician Assistant Medical | DX: I65.23 Occlusion and stenosis of bilateral carotid arteries (principal) | CPT/HCPCS: 93880 ==

== ENCOUNTER 2025-01-19 07:33 | Inpatient (IN) | payer OTHER, SELFPAY ==
[2025-01-13 08:52] VITALS: BMI 23.8
[2025-01-13 09:25] LABS: Hematocrit 36.7 % (37.0-47.0); Hemoglobin 11.5 g/dL (12.0-16.0); Mean Corp Hgb Conc. 31.3 g/dL (33.0-37.0); Mean Corpuscular Volume 76.5 fL (81.0-99.0); Nucleated Red Blood Cells % 0 %; Platelet Count 388 10^3/uL (130-400); Red Cell Dist. Width 15.9 % (11.5-14.5)
[2025-01-13 09:33] LABS: APTT 25.9 Sec (23.4-35.0); INR 1.05; PT 13.8 Sec (11.4-14.6)
[2025-01-13 10:02] LABS: Blood Urea Nitrogen 22 mg/dl (7-17); Calcium 9.5 mg/dl (8.4-10.2); Carbon Dioxide 24 mmol/L (22-30); Chloride 109 mmol/L (98-107); Estimated Creatinine Clearance 33 ml/min; Glucose 100 mg/dl (70-99); Potassium 4.5 mmol/L (3.5-5.1); Sodium 141 mmol/L (135-145); eGFR 49.61
[2025-01-19] VITALS (9 sets, daily range): BP systolic 122–187; BP diastolic 71–104; BMI 24.1
[2025-01-19] MEDS: PERIDEX 0.12% ORAL RINSE 15 ML PO (07:52)
[2025-01-19] MEDS: BACTROBAN NASAL 1 GRAM NASAL (07:54)
[2025-01-19] MEDS: NSS 500 IV (07:55)
[2025-01-19] MEDS: VANCOCIN 200 IV (09:06)
--- NOTE | 2025-01-19 09:12 | W.SUR.PREOP ---
Pre-Operative Surgical Note
-
I have examined this patient prior to the performance of the scheduled procedure.
The patient's condition is unchanged from the time of the current History and
Physical (with the exception as noted below) and the patient is able to undergo the scheduled procedure.
She has psoriasis flare up recently -- affected both LE. Saw derm. Derm told her to proceed. Examined her and noted fairly extensive psoriatic changes. Most will be not directly in the path of surgical sites, but proximal arterial exposure site
likely is within that segment. Options are to proceed as planned (albeit with increased risk of skin complications/wound issues) or to wait to try to get to fully resolve. However, she has significant 1st toe tissue loss that is a limb
threatening problem. After our discussion, we both agree (patient and myself) with proceeding as planned, excepting risks of wound issues in setting of psoriasis. Especially given that she's actively being treated and has seen sheet metal superintendent who
recommended she proceed.
[2025-01-19 13:52] LABS: ACT-LR - POC 281 Seconds (116-155)
--- NOTE | 2025-01-19 14:02 | CON.INTV ---
Consultation
Consultation Request
Date/Time Consultation Requested: 01/19/2025 - 1327
Date/Time Consultation Performed: 01/19/2025 - 1350
Requesting Provider: RICHARD Barragan
Performing Provider: Dr. Bella
Reason for Consultation: RLE bypass
Medical History
-
Chief Complaint: RLE PAD with elective revascularization
History of Present Illness:
69-year-old female for tobacco smoker with a past medical history of PAD with lower extremity claudication, hypertension, hypercholesterolemia, bilateral carotid artery stenosis s/p left TCAR, thyroid nodule, bilateral hip DJD and cervical spine
herniation who presents for elective RLE vascular surgery. Patient known to vascular surgery with last visit on 01/06/[address] Costello. Patient has known PAD with history of right lower extremity bypass in July 2024. Continues to have a
nonhealing, right first toe wound/ulcer, Which has been causing significant pain. Vascular surgery recommended surgical intervention which the patient has agreed to. Today, she underwent right lower extremity profunda to AT arterial bypass with
non reversed ipsilateral vein conduit. There were no immediate complications, and she was transferred to the ICU postoperatively for further care, and Drier Operator Head service consulted for additional management/recommendations.
When I saw the patient, she was resting in bed in no acute distress. Her spouse, Patrick, was present at bedside and all questions were answered. Patient's heart rate currently is 90, BP 168/73 via A-line, BP 111/74 via NIBP, and she is saturating
99% on 6L/min and breathing comfortably.
PMHx: PAD, hypertension, hepatitis C s/p treatment, hypercholesterolemia, osteoarthritis, former tobacco smoker, bilateral carotid artery stenosis s/p left TCAR (08/01/2023), hypertensive retinopathy, bilateral hip DJD, thyroid nodule, cervical spine
herniation
PSHx: x 2, dental extractions, C3-4 fusion (03/2021), left TCAR (08/01/2023), left iliofemoral extensive endarterectomy with bovine pericardial patch angioplasty, left to right femoral to femoral artery bypass, and left common/external
iliac artery angioplasty/stent (July 2024)
Past Medical History
Past Medical History: Other (Above as per HPI)
Past Surgical History: Other (Above as per HPI)
Social History
Tobacco: Former Smoker (Quit 9 years ago)
Alcohol: Former
Drug: None
Personal:
Living: With Family
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)
Family History
Family History: Cancer (Brother (unknown type)), Hypertension (mother) and Other (Father: Cerebral aneurysm)
Allergies / Home Medications
Allergies
Allergy/AdvReac Type Severity Reaction Status Date / Time
diphenhydramine HCl (From Allergy Rash Verified 01/07/25 14:33
Benadryl)
erythromycin base Allergy Rash, Verified 01/07/25 14:33
shortness
of breath
latex (Latex) Allergy Rash Verified 01/07/25 14:33
levofloxacin (From Levaquin) Allergy Shortness Verified 01/07/25 14:33
of Breath
Penicillins Allergy Shortness Verified 01/07/25 14:33
of Breath
Home Medications
�Medication �Instructions �Recorded �Confirmed �Last Taken �Type
aspirin 81 mg tablet,delayed 81 mg PO DAILY Blood Clot 11/13/17 01/19/25 01/18/25 08:00 History
release (Adult Low Dose Aspirin) Prevention/Tx
docusate sodium 100 mg capsule 100 mg PO DAILYPRN PRN constipation 11/13/17 01/19/25 Unknown History
(Colace)
hydrochlorothiazide 12.5 mg capsule 12.5 mg PO DAILY Fluid 11/13/17 01/19/25 11/10/24 13:00 History
Retention/Swelling
metoprolol tartrate 50 mg tablet 50 mg PO BID Blood Pressure 11/13/17 01/19/25 01/18/25 08:00 History
multivitamin 1 tab PO DAILY Supplement 07/24/23 01/19/25 01/18/25 08:00 History
risedronate 150 mg tablet 150 mg PO QMONTH BONE 07/24/23 01/19/25 01/16/25 08:00 History
rosuvastatin 10 mg tablet 10 mg PO DAILY High Cholesterol 08/01/23 01/19/25 01/18/25 08:00 History
clopidogrel 75 mg tablet 75 mg PO DAILY #30 tabs 08/10/24 01/19/25 01/18/25 08:00 Rx
acetaminophen 500 mg tablet 500 mg PO QID PRN rt leg pain 11/11/24 01/19/25 01/18/25 20:00 History
ferrous sulfate 325 mg (65 mg 325 mg PO DAILY 11/12/24 01/19/25 01/18/25 08:00 History
iron) tablet (iron)
spironolactone 50 mg tablet 50 mg PO DAILY 11/12/24 01/19/25 01/11/25 08:00 History
betamethasone dipropionate 0.05 % 1 applic topical BID Psoriasis 01/07/25 01/19/25 01/18/25 08:00 History
topical cream
mometasone 0.1 % topical cream 1 applic topical BID 01/07/25 01/19/25 01/18/25 08:00 History
Review of Systems
-
History Source: Patient
All other systems: Negative unless noted
Vitals / Labs / Diagnostic Testing
Vital Signs
Temp Pulse Resp BP Pulse Ox
95.0 F L 83 12 127/77 98
01/19/25 16:56 01/19/25 17:50 01/19/25 17:50 01/19/25 15:45 01/19/25 17:50
Lab Data
01/19/25 14:51
01/19/25 14:51
Laboratory Results
01/19/25
14:51
PT 15.0 H
INR 1.17
APTT 28.9
Diagnostic Testing:
Physical Exam
-
HEENT: Normocephalic and Anicteric
Cardiovascular: S1/S2 and Peripheral Edema (negative)
Respiratory: Wheeze (negative), Rales (negative), Rhonchi (negative) and Non-Labored Respirations
GI: Soft, Non Distended, Non Tender and Normal Bowel Sounds
Neurology: Awake, Alert and Tremors (negative)
Skin: Warm, Dry and Other (bandage along right lower extremity)
General: Respiratory Distress (negative), Comfortable, Fever (negative) and Chills (negative)
Assessment
-
Assessment: 69-year-old female for tobacco smoker with a past medical history of PAD with lower extremity claudication, hypertension, hypercholesterolemia, bilateral carotid artery stenosis s/p left TCAR, thyroid nodule, bilateral hip DJD and
cervical spine herniation who presents for elective RLE vascular surgery. Patient known to vascular surgery with last visit on 01/06/[address] Costello. Patient has known PAD with history of right lower extremity bypass in July 2024. Continues to
have a nonhealing, right first toe wound/ulcer, Which has been causing significant pain. Vascular surgery recommended surgical intervention which the patient has agreed to. On 01/19/2025, she underwent right lower extremity profunda to AT
arterial bypass with non reversed ipsilateral vein conduit. There were no immediate complications, and she was transferred to the ICU postoperatively for further care, and Drier Operator Head service consulted for additional management/recommendations.
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
nodule, cervical spine herniation
Impression:
#Chronic limb threatening ischemia involving right lower extremity s/p right femoral (profunda) to anterior tibial artery bypass with ipsilateral nonreversed greater saphenous vein conduit - POD#0
#Chronic anemia
#Former tobacco smoker
#Hypertension
#Hypercholesterolemia
Plan:
Postoperative surgical intensive care unit monitoring
Supplemental oxygen to maintain SpO2 >90-94%, weaning down as tolerated
prn nebulized bronchodilators - not currently bronchospastic
Incentive spirometry encouraged 10x per hour for at least 4 hrs a day
Aspiration precautions
Pain control
Neuro and vascular checks per protocol
Maintain MAP>65
Replete electrolytes with K>4, Mg>2
Maintain euglycemia with goal BG 140-180
Vascular surgery following-correspondence and operative notes reviewed
Transfuse blood products as needed to keep Hb>7g/dL, and plt>50k (given post-operative status)
DVT prophylaxis
Early nutrition
Early mobilization
Patient was seen and evaluated on 01/19/2025 Critical care statement: A total of 41 minutes of critical care time was provided for this patient today. This includes management of unstable vital signs, evaluation of the patient at bedside, reviewing
the patient's pertinent medical records including radiographs, microbiology, laboratory evaluations, and discussion with primary team, consultants, pharmacy, nutrition, physical therapy, case management, charge nurse, critical care nursing, and
respiratory therapy.
--- NOTE | 2025-01-19 14:18 | W.SUR.POST ---
Addendum entered and electronically signed by RICHARD Huitron 01/19/25 14:23:
EBL: 30 ml
Original Note:
Surgical Immediate Post Op
Note
Pre Op Diagnosis: PAD and non healing wound
Post Op Diagnosis:PAD and non healing wound
Procedure Performed: Right lower extremity profunda to AT arterial bypass with non reversed ipsilateral vein conduit
Primary Surgeon: Efren Costello MD
Credit Specialist: RICHARD Vinson and RICHARD Snell
Anesthesia: GETA
Estimated Blood Loss:
Fluids: See anesthesia flow sheet
Drains/Shunts: N/A
Specimens/Cultures: None
Doppler/Duplex/Angio (Y/N):Y, doppler
Complications: None
Operative Findings: Successful profunda to AT bypass with excellent postoperative Doppler signal at right DP
[2025-01-19 15:09] LABS: INR 1.17; PT 15.0 Sec (11.4-14.6)
[2025-01-19 15:10] LABS: APTT 28.9 Sec (23.4-35.0)
[2025-01-19 15:13] LABS: Blood Urea Nitrogen 11 mg/dl (7-17); Calcium 7.7 mg/dl (8.4-10.2); Carbon Dioxide 22 mmol/L (22-30); Chloride 113 mmol/L (98-107); Estimated Creatinine Clearance 56 ml/min; Glucose 124 mg/dl (70-99); Potassium 3.8 mmol/L (3.5-5.1); Sodium 138 mmol/L (135-145); eGFR > 60.00
[2025-01-19 15:18] LABS: Hematocrit 34.6 % (37.0-47.0); Hemoglobin 10.2 g/dL (12.0-16.0); Mean Corp Hgb Conc. 29.5 g/dL (33.0-37.0); Mean Corpuscular Volume 80.5 fL (81.0-99.0); Platelet Count 282 10^3/uL (130-400); Red Cell Dist. Width 16.3 % (11.5-14.5)
--- NOTE | 2025-01-19 15:26 | OR.RPT ---
Operative Report
Operative Report
PROCEDURE DATE: 01/19/2025
Preoperative diagnosis: Chronic limb threatening ischemia right lower extremity
Postoperative diagnosis: Same
Procedure: Right femoral (profunda) to anterior tibial artery bypass with ipsilateral nonreversed greater saphenous vein conduit.
Surgeon: Pravin
Supervisor Beam Department: SHERRELL Moncada and SHERRELL Fermin, required for all aspects of procedure including assistance with traction/countertraction, following a suture line, assistance with closure.
Complications: None
Anesthesia: General
Indications for procedure:
Patient had severe peripheral arterial disease. Prior had ischemic rest pain and therefore I performed an inflow procedure (femoral to femoral artery bypass). This was to revascularize the profunda. She had chronic long segment SFA occlusion.
However she then developed tissue loss in the right first toe. Chronic nonhealing wound now with concern for worsening. Therefore risk/benefits/alternatives of revascularization all fully discussed. Patient understood and elected proceed.
Description of procedure:
Patient was identified brought to the operating room placed on the table in supine position. After the adequate administration of anesthesia she was prepped and draped in the standard surgical fashion. A standard preoperative timeout was
undertaken and everybody was in agreement the plan. A longitudinal incision was made in the right proximal thigh with the proximal extent starting at the distal aspect of the prior groin incision for the femoral to femoral artery bypass. This
incision was now carried through the skin subcutaneous tissue. The fascia layer was incised. Sartorius muscle was reflected medially and self-retaining retractors placed. I was able to palpate the superficial femoral artery. I retracted this
medially as well and dissected deep to here. I could palpate the deep femoral artery pulsation deep. I was able to identify the branch of it and then the main profunda. This was quite a deep dissection, and I carefully had to ligate or clipped
some crossing small vein branches and divided them in order to facilitate exposure here. I dissected this branch back to the main profunda. I then dissected the profunda back a few centimeters to the proximal aspect of my incision site. The
profunda was nicely pulsatile here. I now passed a vessel loop around it proximally after careful circumferential dissection. At the main branch point I had already controlled the more superficial branch (first branch exposed). I now
circumferentially carefully dissected the deeper branch just at its origin and passed a vessel loop around it (controlled and by exclusion). Vessel loop was double looped but not tightened. Now that I control of the main profunda and branches, I
turned my attention to the distal artery.
At this point a longitudinal incision was made in the proximal anterior/lateral calf of the right lower extremity. This was carried through the skin the patient's tissue. The crural fascia of the anterior compartment was divided. I then dissected
between the muscle bellies of the anterior compartment muscles. I bluntly dissected in this space. I then placed a self-retaining retractor. The anterior tibial vein was then identified. I then identified the anterior tibial artery which was
just deep to one of the veins. It was fairly stuck as the vein was fairly stuck to it and had to carefully dissect here. A couple vein branches were ligated between silk ties and divided to facilitate exposure. As such, I exposed a suitable
segment of artery, I carefully circumferentially dissected it proximally and distally and passed Vesseloops around it. The artery was noted to have some plaque but was reasonable to clamp and so. There was a reasonable Doppler signal of the artery
confirming patency (this was also confirmed on my prior angiogram).
Now that I had proximal and distal arterial exposure, I turned my attention to the medial thigh to expose the greater saphenous vein. Longitudinal incisions were made in the medial thigh (skip incision type) and the greater saphenous vein was
exposed in standard technique. It was noted to be a marginal vein. It was slightly small and areas, had somewhat of a 'sticky' consistency and that it was tougher to dissect away from the surrounding structures. Had multiple branches as well
which were all ligated between silk ties and divided to allow full mobilization out of the bed. As noted I had performed skip incisions to expose the artery from the very proximal thigh all the way to mid calf. The vein was moderately small below
the knee, but I felt it would distend reasonably well. Once I had fully mobilized it I ligated the vein distally with a silk tie and a clip and then transected. I then proximally placed a 2-0 silk suture ligature to ligate the vein and placed a
clip (both distal to the saphenofemoral junction), and then divided here. I distended under heparinized saline. It actually distended reasonably well now. A couple small branch points were repaired with [id number] 7-0 Prolene sutures. Now
the entirety of the vein distended well and looks reasonable.
At this point I created a subcutaneous tunnel between the profunda exposure site and the anterior tibial artery exposure site. This was done with a [employer] tunneler. Once I created the tunnel, I gave the patient a 5000s of intravenous heparin.
Once this had circulated, I tightened Vesseloops (double looped) and/or clamped the profunda and branches. I now made an arteriotomy with an 11 blade on the profunda and extended using a Saldaña scissor. The lumen was nicely patent. I now
spatulated the saphenous vein conduit (maintaining it in a nonreversed fashion), and sewed an end-to-side anastomosis using a running 6-0 Prolene suture. I completed and tied on the suture line. I now released my clamps/Vesseloops on the profunda.
There is excellent pulsatile flow flowing into the vein graft. A single 6-0 Prolene [id number] suture was placed along the suture line for hemostasis. Now the suture line was fully hemostatic. I now used a Thornton valvulotome to thoroughly
valvulotomize the vein graft. There is now excellent pulsatile flow through the vein graft. I marked the anterior surface under distention to avoid any kinking or twisting. I then passed it through the tunnel. I confirmed there is no kinking or
twisting. I placed a bulldog clamp on the vein graft. I now reexposed the anterior tibial artery. Yasargil clips were placed proximally and distally on the anterior tibial artery. An arteriotomy was then made with a [place] blade and extended
using a micro Saldaña scissor. The vein graft was now trimmed and spatulated distally. An end-to-side anastomosis was fashioned between the vein and the anterior tibial artery using a running 7-0 Prolene suture. Prior to completing and tying down
my suture line I backbled the [place] artery, and flushed out the vein graft. Heparinized saline was flushed. I then completed and tied down the suture line. Next I released the proximal Yasargil clip on the anterior tibial artery and then the
bulldog clamp on the vein graft, and finally released the outflow Yasargil clip. There is now excellent pulsatile flow in the bypass graft. Doppler confirmed excellent anterior tibial artery signal that was significantly graft augmented.
Similarly there is an excellent Doppler signal at the dorsalis pedis on the foot that was significantly graft augmented. At this point I was very satisfied.
Meticulous hemostasis was now achieved through all incision sites. All sites were irrigated. Hemostasis was again confirmed. We then closed the incision sites (arterial exposure as well as saphenectomy) using layered Vicryl suture (2-0 Vicryl
where needed, otherwise 3-0 Vicryl) and skin clips for the skin. Dressings were applied. The patient tolerated the procedure well. All sponge, needle, instrument counts were correct at the end of the case. The patient was transported recovery
room in stable condition.
[2025-01-19 16:16] LABS: Glucose - Point of Care 129 mg/dl (70-99)
[2025-01-19] MEDS: NSS 1000 IV (16:22)
[2025-01-19] MEDS: HEPARIN 5000 UNITS SC ×2 (16:22→22:59)
[2025-01-19] MEDS: TYLENOL 650 MG PO (17:19)
--- NOTE | 2025-01-19 17:31 | PTCARENOTE ---
Received pt from PACU s/p RLE femoral Arterial bypass. VSS. Pt drowsy but POZO, following commands, oriented. When awake, O2 changed to 3L NC, SpO2 97%. All LE pulses present with doppler. Cap refill >2sec. R great toe nonhealing ischemic wound
redressed with petroleum gauze and Kerlix. A-line leveled and zeroed. Psoriasis throughout. NSS infusing.
[2025-01-19] MEDS: LOPRESSOR 50 MG PO (19:42)
[2025-01-19] MEDS: DILAUDID 0.5 MG IV (20:23)
--- NOTE | 2025-01-19 20:58 | PTCARENOTE ---
SBP elevated and sustained 170-180. 1999 Lopressor given without much effect on BP. Pt refusing pain meds at that time. Dr Costello to bedside to assess pt. Pt now agreeable to Dilaudid. Pt repositioned and much more comfortable. Heels elevated off bed.
Pt encouraged to keep RLE straight. SBP now 150. Will monitor.
[2025-01-19] MEDS: FLUOCINONIDE 0.05% CREAM TOPICAL (23:00)
[2025-01-19] MEDS: TRIAMCINOLONE ACETONIDE 0.1% CREAM TOPICAL (23:02)
[2025-01-20] VITALS (14 sets, daily range): BP systolic 108–139; BP diastolic 56–81; BMI 24.6
--- NOTE | 2025-01-20 00:30 | PTCARENOTE ---
No change in previous assessment. Patient more agreeable to pain meds, BP under control. Doppler signals audible. Q1h checks.
[2025-01-20] MEDS: NSS 1000 IV (03:09)
[2025-01-20] MEDS: DILAUDID 0.5 MG IV ×4 (03:10→20:11)
[2025-01-20 03:45] LABS: Hematocrit 29.8 % (37.0-47.0); Hemoglobin 9.3 g/dL (12.0-16.0); Mean Corp Hgb Conc. 31.2 g/dL (33.0-37.0); Mean Corpuscular Volume 78.0 fL (81.0-99.0); Platelet Count 320 10^3/uL (130-400); Red Cell Dist. Width 16.3 % (11.5-14.5)
[2025-01-20 03:52] LABS: INR 1.13; PT 14.6 Sec (11.4-14.6)
[2025-01-20 03:53] LABS: APTT 28.3 Sec (23.4-35.0)
--- NOTE | 2025-01-20 04:00 | PTCARENOTE ---
Neurovascular checks as ordered, doppler signals unchanged. AM labs pending. Will monitor.
[2025-01-20 04:14] LABS: Blood Urea Nitrogen 12 mg/dl (7-17); Calcium 7.6 mg/dl (8.4-10.2); Carbon Dioxide 21 mmol/L (22-30); Chloride 112 mmol/L (98-107); Estimated Creatinine Clearance 49 ml/min; Glucose 119 mg/dl (70-99); Potassium 4.3 mmol/L (3.5-5.1); Sodium 139 mmol/L (135-145); eGFR > 60.00
--- NOTE | 2025-01-20 07:52 | PTCARENOTE ---
Vascular team to bedside-see note. Pt A&O. Pleasant. VSS. Supplemental O2 removed, SpO2 93%. Pt c/o leg/toe pain but refusing meds until after breakfast. UOP borderline, team aware.
[2025-01-20] MEDS: TYLENOL 650 MG PO ×2 (07:59→23:11)
--- NOTE | 2025-01-20 08:16 | W.PN.VS ---
Addendum entered and electronically signed by Fidel Fatima III, MD 01/20/25 11:51:
This patient was seen and examined in collaboration with RICHARD Huitron. I agree with the history and physical exam as well as the assessment and plan.
Signed:
Fidel Fatima III, MD
Vascular Surgery
[facility]
Original Note:
Today's Communication / Plan
-
Patient seen and examined at bedside with Dr. Fidel Fatima III, below plan reviewed with attending.
Assessment/Plan
-
Assessment: POD#1 Right femoral (profunda) to anterior tibial artery bypass with ipsilateral nonreversed greater saphenous vein conduit
Plan:
Discontinue arterial line
Discontinue Fatima catheter
Given marginal urine output overnight will give 500ml bolus, can discontinue IV fluids with increased diet today, encourage PO liquids
OOB to chair today
Continue to encourage incentive spirometry
Continue neovascular checks
Continue DVT prophylaxis
Subjective Data
-
Date of Service: January 20, 2025
Patient seen and examined at bedside, offers no complaints. Denies nausea, vomiting, fever, and chills.
Objective Data
-
Vital Signs
Temp Pulse Resp BP Pulse Ox
98.4 F 68 10 182/73 93
01/20/25 08:00 01/20/25 07:35 01/20/25 07:35 01/19/25 19:42 01/20/25 07:42
Intake and Output
01/19/25 01/20/25 01/21/25
06:59 06:59 06:59
Intake Total 2465 / 2545 80 / 80
Output Total 540 / 540
Balance 1924 / 2004 80 / 80
Intake:
Oral fluids 840 / 840
IV fluids (Total) 1425 / 1505 80 / 80
NSS 1425 / 1505 80 / 80
IV piggybacks 200 / 200
Output:
Urine, Fatima 540 / 540
Lab Results
01/20/25 03:17
01/20/25 03:17
Calcium 7.6 mg/dl (8.4-10.2) L 01/20/25 03:17
Physical Exam
-
No apparent distress, resting in bed comfortably
No tachycardia
No dyspnea on room air
ABD non tender, non distended
RLE dressing dry and intact, no evidence hematoma, all compartments soft, right foot warm, + DP doppler signal
Fatima with clear yellow urine
--- NOTE | 2025-01-20 08:19 | W.PN.INTV ---
Today's Communication / Plan
Recommendations
Postoperative management as per vascular surgery
Up OOB as tolerated
Pain control
Encourage incentive spirometer
Maintain MAP >65-70
q1hr neurovascular checks
Assessment
-
Assessment: 69-year-old female for tobacco smoker with a past medical history of PAD with lower extremity claudication, hypertension, hypercholesterolemia, bilateral carotid artery stenosis s/p left TCAR, thyroid nodule, bilateral hip DJD and
cervical spine herniation who presents for elective RLE vascular surgery. Patient known to vascular surgery with last visit on 01/06/[address] Costello. Patient has known PAD with history of right lower extremity bypass in July 2024. Continues to
have a nonhealing, right first toe wound/ulcer, Which has been causing significant pain. Vascular surgery recommended surgical intervention which the patient has agreed to. On 01/19/2025, she underwent right lower extremity profunda to AT
arterial bypass with non reversed ipsilateral vein conduit. There were no immediate complications, and she was transferred to the ICU postoperatively for further care, and Investigative Assistant service consulted for additional management/recommendations.
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
nodule, cervical spine herniation
Impression:
#Chronic limb threatening ischemia involving right lower extremity s/p right femoral (profunda) to anterior tibial artery bypass with ipsilateral nonreversed greater saphenous vein conduit - POD#1
#Chronic anemia
#Former tobacco smoker
#Hypertension
#Hypercholesterolemia
Plan:
Postoperative surgical intensive care unit monitoring
Supplemental oxygen to maintain SpO2 >90-94%, weaning down as tolerated
prn nebulized bronchodilators - not currently bronchospastic
Incentive spirometry encouraged 10x per hour for at least 4 hrs a day
Aspiration precautions
Pain control
Neuro and vascular checks per protocol
Maintain MAP>65
Replete electrolytes with K>4, Mg>2
Maintain euglycemia with goal BG 140-180
Vascular surgery following-correspondence and operative notes reviewed
Transfuse blood products as needed to keep Hb>7g/dL, and plt>50k (given post-operative status)
DVT prophylaxis
Early nutrition
Early mobilization
Continue ICU level care while requiring q1hr neurovascular checks.
Critical care statement: A total of 36 minutes of critical care time was provided for this patient today. This includes management of unstable vital signs, evaluation of the patient at bedside, reviewing the patient's pertinent medical records
including radiographs, microbiology, laboratory evaluations, and discussion with primary team, consultants, pharmacy, nutrition, physical therapy, case management, charge nurse, critical care nursing, and respiratory therapy.
Subjective Dataa
Subjective Data
Date of Service:
Date of Service: January 20, 2025
Chief Complaint: Investigative Assistant Follow Up
Subjective:
Patient seen and evaluated this morning. Resting in chair in no acute distress. HR 79, saturating 90% on room air. BP 120/64. Afebrile overnight.
Review of Systems
General: Other (Negative unless mentioned above)
Objective Data
Data Reviewed
Vital Signs / I&O / Oxygen:
Vital Signs
Temp Pulse Resp BP Pulse Ox
98.4 F 79 16 182/73 91
01/20/25 08:00 01/20/25 09:35 01/20/25 09:35 01/19/25 19:42 01/20/25 09:35
Intake and Output
01/19/25 01/20/25 01/21/25
06:59 06:59 06:59
Intake Total 2465 / 2545 410 / 410
Output Total 540 / 540 90 / 90
Balance 1924 / 2004 320 / 320
SaO2 91
Nasal Cannula flow liters per 3
minute
Physical Exam
General: Respiratory Distress (n) and Comfortable
HEENT: Normocephalic and Anicteric
Cardiovascular: S1-S2 and Peripheral Edema (n)
Respiratory: Wheeze (n), Crackles (n), Rhonchi (n), Non-Labored Respirations and Stridor (n)
GI: Soft, Non Distended, Non Tender and Normal Bowel Sounds
Neurology: Awake, Tremors (n) and Other (Sleepy today)
Skin: Warm, Dry, Cyanosis (n) and Jaundice (n)
Labs/Micro/Reports
Lab Data
01/20/25 03:17
01/20/25 03:17
Laboratory Results
01/19/25 01/20/25
14:51 03:17
PT 15.0 H 14.6
INR 1.17 1.13
APTT 28.9 28.3
[2025-01-20] MEDS: FEOSOL 325 MG PO (08:41)
[2025-01-20] MEDS: PLAVIX 75 MG PO (08:41)
[2025-01-20] MEDS: THERAGRAN 1 TABLET PO (08:41)
[2025-01-20] MEDS: ORETIC 12.5 MG PO (08:41)
[2025-01-20] MEDS: LOPRESSOR 50 MG PO ×2 (08:41→20:11)
[2025-01-20] MEDS: ALDACTONE 50 MG PO (08:41)
[2025-01-20] MEDS: PROTONIX 20 MG PO (08:41)
[2025-01-20] MEDS: CRESTOR 10 MG PO (08:41)
[2025-01-20] MEDS: HEPARIN 5000 UNITS SC ×2 (08:41→20:08)
[2025-01-20] MEDS: ASPIR LOW (ENTERIC COATED) 81 MG PO (08:41)
[2025-01-20] MEDS: TRIAMCINOLONE ACETONIDE 0.1% CREAM 1 APPLIC TOPICAL ×2 (08:42→20:09)
[2025-01-20] MEDS: FLUOCINONIDE 0.05% CREAM 1 APPLIC TOPICAL ×2 (08:44→20:08)
[2025-01-20] MEDS: NSS 250 IV (08:45)
--- NOTE | 2025-01-20 11:52 | PTCARENOTE ---
A-line removed, everett out, IVF discontinued. Pt assisted X2 OOB to chair with single-point cane. Required much discussion to convince pt to take pain med despite being in obvious overwhelming pain with tears.
--- NOTE | 2025-01-20 16:12 | CM ---
Spoke with patients Patrick who lives with her in a 2 story home with 0 steps to enter and 16 steps to bed/bathroom. She has assistance in activates of daily living.She does not drive .She uses a walker and cane.[facility] has [facility] OT
wound care. PT order when medically ready would help with dc planning. informed that Xareelto thomason is $47.00 / mon . He will discuss with .
[facility] in past . Abi and Credit [employer] Loans Officer DANIELLE [facility]
Pharm[facility]
PCP Dr Hernandez
PLAN Home with [facility] [phone] fax [phone]
--- NOTE | 2025-01-20 16:24 | PTCARENOTE ---
VSS. to bedside. Updated on care plan. Dilaudid given and pt returned to bed after 6hr in recliner. Bladder scan 74cc.
--- NOTE | 2025-01-20 20:00 | PTCARENOTE ---
Doppler signals B/L LE. PRN pain meds with desired effect. VSS. No issues at this time. Fatima removed on dayshift, voiding in bedpan/BSC. Will monitor.
[2025-01-20] MEDS: XARELTO 2.5 MG PO (20:08)
[2025-01-21] VITALS (21 sets, daily range): BP systolic 111–167; BP diastolic 59–100; PULSE 82; BMI 25.4
--- NOTE | 2025-01-21 00:30 | PTCARENOTE ---
No changes in assessment. Pt resting comfortably. Call schultz in reach. Will monitor.
[2025-01-21] MEDS: DILAUDID 0.5 MG IV ×2 (01:09→19:47)
[2025-01-21 03:56] LABS: Hematocrit 28.4 % (37.0-47.0); Hemoglobin 9.3 g/dL (12.0-16.0); Mean Corp Hgb Conc. 32.7 g/dL (33.0-37.0); Mean Corpuscular Volume 77.6 fL (81.0-99.0); Platelet Count 334 10^3/uL (130-400); Red Cell Dist. Width 16.5 % (11.5-14.5)
--- NOTE | 2025-01-21 04:00 | PTCARENOTE ---
No changes in assessment. Pt resting comfortably. Call schultz in reach. Will monitor.
[2025-01-21 04:29] LABS: Blood Urea Nitrogen 14 mg/dl (7-17); Calcium 7.7 mg/dl (8.4-10.2); Carbon Dioxide 23 mmol/L (22-30); Chloride 110 mmol/L (98-107); Estimated Creatinine Clearance 39 ml/min; Glucose 102 mg/dl (70-99); Magnesium 2.1 mg/dl (1.6-2.3); Potassium 4.1 mmol/L (3.5-5.1); Sodium 136 mmol/L (135-145); eGFR > 60.00
[2025-01-21] MEDS: FLUOCINONIDE 0.05% CREAM 1 APPLIC TOPICAL (07:00)
--- NOTE | 2025-01-21 07:10 | PTCARENOTE ---
Bedside pulse checks with left PT Doppler signal difficult to obtain. Feet equally warm. She is restless with pain in her right leg. Agreeable to take analgesia. She is awake an alert and requires a lot of encouragement to perform ADL's. Pillow
under right knee preventing her knee from straightening out. Pillow repositioned under her calf. She was encouraged NOT to place or pull the pillow up behind her right knee due to contraction and prevents blood flow below the knee. She is not able
to straighten her right knee out and shifts her hips to the side maintaining a bent right knee. Lungs CTA. RA pulse ox 94%. +BSx4. Dry patchy skin oh her hips, and lower back. Psoriasis cream applied as ordered. While in the room doing hand off
pulse checks Dr. Costello entered and removed her post-op dressings. Bharat WALLER, jennifer. Safe environment maintained.
[2025-01-21] MEDS: LOPRESSOR 50 MG PO ×2 (07:23→19:47)
[2025-01-21] MEDS: ALDACTONE 50 MG PO (07:23)
[2025-01-21] MEDS: ORETIC 12.5 MG PO (07:23)
[2025-01-21] MEDS: ASPIR LOW (ENTERIC COATED) 81 MG PO (07:23)
[2025-01-21] MEDS: CRESTOR 10 MG PO (07:24)
[2025-01-21] MEDS: ROXICODONE 5 MG PO ×4 (07:24→23:03)
[2025-01-21] MEDS: FEOSOL 325 MG PO (07:24)
[2025-01-21] MEDS: XARELTO 2.5 MG PO (07:24)
[2025-01-21] MEDS: THERAGRAN 1 TABLET PO (07:24)
[2025-01-21] MEDS: COLACE 100 MG PO (07:24)
[2025-01-21] MEDS: HEPARIN 5000 UNITS SC ×2 (07:25→19:47)
[2025-01-21] MEDS: TRIAMCINOLONE ACETONIDE 0.1% CREAM 1 APPLIC TOPICAL ×2 (07:26→19:51)
--- NOTE | 2025-01-21 07:36 | W.PN.VS ---
Addendum entered and electronically signed by Efren Costello MD 01/21/25 10:12:
Seen and examined with SHERRELL Moncada. Agree with findings as noted below. No new complaints. Right lower extremity incisions all clean dry and intact. No hematomas. Palpable graft pulse. Excellent dopplerable DP signal. Plan/as discussed and noted
below.
Original Note:
Today's Communication / Plan
-
Patient seen and examined at bedside with Dr. Efren Costello M.D., below plan reviewed with attending.
Assessment/Plan
-
Assessment: POD#2 Right femoral (profunda) to anterior tibial artery bypass with ipsilateral nonreversed greater saphenous vein conduit
Plan:
PT/OT
Encourage ambulation
Cleared for downgrade to telemetry floor
Continue to encourage incentive spirometry
Continue neovascular checks
Continue continue Compass protocol of Xarelto 2.5 mg p.o. twice daily and aspirin 81 mg p.o. daily while inpatient, patient and determining if they can afford medication upon discharge
Continue statin
Subjective Data
-
Date of Service: January 21, 2025
Patient seen and examined at bedside, offers no complaints. Reports for manage postoperative pain. Denies nausea, vomiting, fever, and chills. Continues to consider cost of Compass protocol (Xarelto 2.5 mg p.o. twice daily and aspirin 81 mg p.o.
daily) with , they have yet to make decision if they can afford medication.
Objective Data
-
Vital Signs
Temp Pulse Resp BP Pulse Ox
98.5 F 71 13 136/68 90
01/21/25 07:24 01/21/25 07:23 01/21/25 06:00 01/21/25 07:23 01/21/25 06:00
Intake and Output
01/20/25 01/21/25 01/22/25
06:59 06:59 06:59
Intake Total 2465 / 2545 470 / 470
Output Total 540 / 540 240 / 240
Balance 1924 230 / 230
Intake:
Oral fluids 840 / 840 60 / 60
IV fluids (Total) 1425 / 1505 410 / 410
NSS 1425 / 1505 410 / 410
IV piggybacks 200 / 200
Output:
Urine, Fatima 540 / 540 90 / 90
Urine, Voided 150 / 150
Lab Results
01/21/25 03:27
01/21/25 03:27
Calcium 7.7 mg/dl (8.4-10.2) L 01/21/25 03:27
Phosphorus 2.8 mg/dl (2.5-4.5) 01/21/25 03:27
Magnesium 2.1 mg/dl (1.6-2.3) 01/21/25 03:27
Physical Exam
-
No apparent distress, resting in bed comfortably
No tachycardia
No dyspnea on room air
ABD non tender, non distended
RLE dressing dry and intact, all dressings removed by this provider, right lower extremity akil clean, dry, and intact with well-approximated staple line, no evidence hematoma, all compartments soft, right foot warm, + DP doppler signal
[2025-01-21 07:53] LABS: Albumin 3.4 g/dl (3.5-5.0)
--- NOTE | 2025-01-21 08:09 | W.PN.INTV ---
Today's Communication / Plan
Recommendations
Postoperative management as per vascular surgery
Up OOB as tolerated
Pain control
Encourage incentive spirometer
Maintain MAP >65-70
Neurovascular checks per protocol
Patient is stable for downgrade out of ICU to telemetry. No additional recommendations at this time. Production Miner/Pulmonary service will now sign off. Please reconsult if there are any additional questions/concerns, or if patient's respiratory
status deteriorates.
Assessment
-
Assessment: 69-year-old female for tobacco smoker with a past medical history of PAD with lower extremity claudication, hypertension, hypercholesterolemia, bilateral carotid artery stenosis s/p left TCAR, thyroid nodule, bilateral hip DJD and
cervical spine herniation who presents for elective RLE vascular surgery. Patient known to vascular surgery with last visit on 01/06/[address] Costello. Patient has known PAD with history of right lower extremity bypass in July 2024. Continues to
have a nonhealing, right first toe wound/ulcer, Which has been causing significant pain. Vascular surgery recommended surgical intervention which the patient has agreed to. On 01/19/2025, she underwent right lower extremity profunda to AT
arterial bypass with non reversed ipsilateral vein conduit. There were no immediate complications, and she was transferred to the ICU postoperatively for further care, and Production Miner service consulted for additional management/recommendations.
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
nodule, cervical spine herniation
Impression:
#Chronic limb threatening ischemia involving right lower extremity s/p right femoral (profunda) to anterior tibial artery bypass with ipsilateral nonreversed greater saphenous vein conduit - POD#2
#Chronic anemia
#Former tobacco smoker
#Hypertension
#Hypercholesterolemia
Plan:
Postoperative surgical intensive care unit monitoring
Supplemental oxygen as needed to maintain SpO2 >90-94% -currently on room air breathing comfortably, saturating 95%
prn nebulized bronchodilators - not currently bronchospastic
Incentive spirometry encouraged 10x per hour for at least 4 hrs a day
Aspiration precautions
Pain control
Neuro and vascular checks per protocol
Maintain MAP>65
Replete electrolytes with K>4, Mg>2
Maintain euglycemia with goal BG 140-180
Vascular surgery following-correspondence and operative notes reviewed
Transfuse blood products as needed to keep Hb>7g/dL, and plt>50k (given post-operative status)
DVT prophylaxis
Early nutrition
Early mobilization
Patient is stable for downgrade out of ICU to telemetry. No additional recommendations at this time. Production Miner/Pulmonary service will now sign off. Thank you for allowing us to be involved in the care of this patient. Please reconsult if there
are any additional questions/concerns, or if patient's respiratory status deteriorates.
Total time spent today was 58 minutes for this encounter. Time includes reviewing laboratory test/imaging results, reviewing pertinent medical records, obtaining and reviewing medical history, performing an appropriate exam, ordering medications,
tests and procedures. Time also includes documentation of this encounter, coordinating patient care and communicating with other healthcare professionals. Total time does not include separately billed tests performed on this date of service.
Subjective Dataa
Subjective Data
Date of Service:
Date of Service: January 21, 2025
Chief Complaint: Production Miner Follow Up
Subjective:
Patient seen today at bedside. Sitting in chair no acute distress. at bedside. Patient was afebrile overnight. Currently on room air, saturating 95%. Heart rate 76, BP 120/65.
Review of Systems
General: Other (Negative unless mentioned above)
Objective Data
Data Reviewed
Vital Signs / I&O / Oxygen:
Vital Signs
Temp Pulse Resp BP Pulse Ox
98.5 F 71 15 136/68 94
01/21/25 07:24 01/21/25 07:23 01/21/25 07:01 01/21/25 07:23 01/21/25 07:10
Intake and Output
01/20/25 01/21/25 01/22/25
06:59 06:59 06:59
Intake Total 2465 / 2545 470 / 470 120 / 120
Output Total 540 / 540 240 / 240
Balance 1924 230 / 230 120 / 120
SaO2 94
Nasal Cannula flow liters per 3
minute
Physical Exam
General: Respiratory Distress (n) and Comfortable
HEENT: Normocephalic and Anicteric
Cardiovascular: S1-S2 and Peripheral Edema (n)
Respiratory: Wheeze (n), Crackles (n), Rhonchi (n), Non-Labored Respirations and Stridor (n)
GI: Soft, Non Distended, Non Tender and Normal Bowel Sounds
Neurology: Awake, Alert, Oriented and Tremors (n)
Skin: Warm, Dry, Cyanosis (n), Jaundice (n) and Other (Bandage on right foot)
Labs/Micro/Reports
Lab Data
01/21/25 03:27
01/21/25 03:27
--- NOTE | 2025-01-21 09:39 | PN.CDI ---
CDI
- -
CDI:
Physician Documentation Request
Admit Date: 01/19/25 07:33
Dear Vascular Surgery,
Clinical Indicators:
Patient admitted with limb threatening ischemia; s/p Right femoral (profunda) to anterior tibial artery bypass 01/19.
01/19 Operative report, 'she then developed tissue loss in the right first toe. Chronic nonhealing wound now with concern for worsening.'
01/19 RN skin/wound assessment: Right first toe, ischemic ulcer, POA
Physician documentation of the type and location of wounds is required for compliant documentation. Based on the above clinical findings and your assessment, please provide the following in your progress note:
1. Type (etiology) of ulcer/wound:
- Arterial (ischemic) ulcer
- Other
2. Please indicate the depth/severity:
- Limited to the breakdown of skin
- With fat layer exposed
- With necrosis of muscle
- With necrosis of bone
- Other
- Unable to determine
Use of terms such as suspected, likely, concern for, or probable (associated with a specific diagnosis that is being evaluated, monitored, or treated as if it exists) are acceptable and can be coded in the inpatient setting, when documented at the
time of discharge.
Thank you,
ADELINA Case RN
CDI Specialist
available via tiger text
Please use your independent medical judgment in providing your response.
*Source: National Pressure Ulcer Advisory Panel (NPUAP)
[2025-01-21] MEDS: TYLENOL 650 MG PO ×3 (11:27→23:03)
--- NOTE | 2025-01-21 11:45 | PTCARENOTE ---
Pt in recliner chair and repositioning her hips independently. Tylenol administered for mild pain. Pillow found positioned under her right knee. She was again informed that it is not recommended due to circulatory problems and that she is unable to
straighten out her knee. Her surgical boot remains on her right foot per her request. Left PT doppler signals remain difficult to find due to positioning of her foot.
--- NOTE | 2025-01-21 12:29 | W.PN.UPDATE ---
Update Note
Progress Note Update
Confirmed with patient and that they cannot afford Xarelto 2.5 mg p.o. twice daily at $47 per month, will reinitiate DAPT of 75 mg p.o. daily with aspirin 81 mg p.o. daily for medical management of peripheral arterial disease. Dr. Efren Costello,
M.D. is aware.
--- NOTE | 2025-01-21 14:22 | CM ---
Chart reviewed
PT recommend SNF Spoke with patient and Patrick at ICU bedside
Agreeable with SNF referral to [facility]
--- NOTE | 2025-01-21 20:00 | PTCARENOTE ---
Pt alert/oriented, c/o intermittent pain well controlled with Aida PO and IV Dilaudid for breakthrough. Patient moving with minimal assist in bed. Educated on importance of repositioning. Afebrile. NSR on monitor. Pulses via doppler as ordered. See
checks in worklist. Room air. Tolerating diet. Voids in bedpan. WIll monitor
[2025-01-21] MEDS: CALCIUM GLUCONATE 100 IV (21:19)
[2025-01-21] MEDS: FLEXERIL 5 MG PO (21:19)
[2025-01-21] MEDS: FLUOCINONIDE 0.05% CREAM TOPICAL (21:19)
[2025-01-22] VITALS (18 sets, daily range): BP systolic 120–169; BP diastolic 56–80; PULSE 85; O2SAT 97
[2025-01-22] MEDS: DILAUDID 0.5 MG IV ×4 (01:56→15:12)
[2025-01-22 06:03] LABS: Hematocrit 31.7 % (37.0-47.0); Hemoglobin 9.9 g/dL (12.0-16.0); Mean Corp Hgb Conc. 31.2 g/dL (33.0-37.0); Mean Corpuscular Volume 78.7 fL (81.0-99.0); Platelet Count 318 10^3/uL (130-400); Red Cell Dist. Width 16.7 % (11.5-14.5)
[2025-01-22 06:28] LABS: Blood Urea Nitrogen 12 mg/dl (7-17); Calcium 9.1 mg/dl (8.4-10.2); Carbon Dioxide 23 mmol/L (22-30); Chloride 109 mmol/L (98-107); Estimated Creatinine Clearance 36 ml/min; Glucose 88 mg/dl (70-99); Potassium 4.0 mmol/L (3.5-5.1); Sodium 137 mmol/L (135-145); eGFR 55.07
[2025-01-22] MEDS: ORETIC 12.5 MG PO (07:46)
[2025-01-22] MEDS: ALDACTONE 50 MG PO (07:46)
[2025-01-22] MEDS: PLAVIX 75 MG PO (07:46)
[2025-01-22] MEDS: FEOSOL 325 MG PO (07:46)
[2025-01-22] MEDS: HEPARIN 5000 UNITS SC ×2 (07:46→20:09)
[2025-01-22] MEDS: LOPRESSOR 50 MG PO ×2 (07:46→20:09)
[2025-01-22] MEDS: ASPIR LOW (ENTERIC COATED) 81 MG PO (07:46)
[2025-01-22] MEDS: THERAGRAN 1 TABLET PO (07:46)
[2025-01-22] MEDS: CRESTOR 10 MG PO (07:46)
[2025-01-22] MEDS: FLUOCINONIDE 0.05% CREAM 1 APPLIC TOPICAL ×2 (07:48→20:08)
[2025-01-22] MEDS: TRIAMCINOLONE ACETONIDE 0.1% CREAM 1 APPLIC TOPICAL ×2 (07:49→20:08)
--- NOTE | 2025-01-22 08:20 | W.PN.VS ---
Addendum entered and electronically signed by Efren Costello MD 01/22/25 15:54:
Seen and examined with SHERRELL Fermin earlier this a.m. This is a late entry. Agree with findings and plan as discussed and noted below. Good graft function on exam.
Original Note:
Today's Communication / Plan
-
Seen and assessed with Dr Costello
Assessment/Plan
-
Assessment: POD#3 Right femoral (profunda) to anterior tibial artery bypass with ipsilateral nonreversed greater saphenous vein conduit
Plan:
PT/OT
Encourage ambulation
Telemetry
Continue ASA/Plavix/Statin
CM for dispo planning to SNF, may be ready by tomorrow
Subjective Data
-
Date of Service: January 22, 2025
Pt seen at bedside this am with Dr Costello. Pt offers no complaints at this time. No events overnight.
Objective Data
-
Vital Signs
Temp Pulse Resp BP Pulse Ox
98.6 F 66 7 155/80 96
01/22/25 04:24 01/22/25 06:16 01/22/25 06:16 01/22/25 06:16 01/22/25 00:22
Intake and Output
01/21/25 01/22/25 01/23/25
06:59 06:59 06:59
Intake Total 470 / 470 480 / 480
Output Total 240 / 240 1025 / 1025
Balance 230 / 230 -545 / -545
Intake:
Oral fluids 60 / 60 480 / 480
IV fluids (Total) 410 / 410
NSS 410 / 410
Output:
Urine, Fatima 90 / 90
Urine, Voided 150 / 150 1025 / 1025
Other:
How many times incontinent 1
MODERATE amount urine
Number of approximated MODERATE 1
amounts of urine
Lab Results
01/22/25 05:47
01/22/25 05:47
Calcium 9.1 mg/dl (8.4-10.2) 01/22/25 05:47
Phosphorus 2.8 mg/dl (2.5-4.5) 01/21/25 03:27
Magnesium 2.1 mg/dl (1.6-2.3) 01/21/25 03:27
Albumin 3.4 g/dl (3.5-5.0) L 01/21/25 03:27
Physical Exam
-
No apparent distress, resting in bed comfortably
No tachycardia
No dyspnea on room air
ABD non tender, non distended
RLE akil clean, dry, and intact with well-approximated staple line, no evidence hematoma, all compartments soft, right foot warm, + DP doppler signal
--- NOTE | 2025-01-22 11:44 | CM ---
Addendum entered by Noris Toney 01/22/25 15:19:
Per Attending, patient will discharge tomorrow, 01/23/2025;
[facility] accepted referral; and has a bed available tomorrow pending auth approval
Spoke with patient and her via phone; they are agreeable with discharge plan discussed
Authorization submitted to [facility]; Clinicals Faxed to # [phone]
Plan: Discharge to [facility] tomorrow via Ambulance pending authorization approval
Original Note:
Chart reviewed SNF recommended when stable for discharge; [facility] was the only facility that accepted referral
Plan: discharge to SNF when medically stable; pending bed availability and AUTH approval
--- NOTE | 2025-01-22 14:14 | PTCARENOTE ---
pt with frequency and urgency, bladder scanned 411, voided 150cc, Catie morales aware and ordered to straight cath. right inner thigh with slight opening at suture site, picture sent via tiger text to Catie Fermin.
--- NOTE | 2025-01-22 14:27 | PTCARENOTE ---
pt with frequency and urgency, bladder scanned 411, voided 150cc, Catie morales aware and ordered to straight cath. pt straight cathed for 250cc yellow urine. right inner thigh with slight opening at suture site, picture sent via tiger text to
Catie Fermin.
--- NOTE | 2025-01-22 14:28 | PN.CDI ---
CDI
- -
CDI:
Physician Documentation Request
Admit Date: 01/19/25 07:33
Dear Vascular Surgery,
Clinical Indicators:
Patient admitted with limb threatening ischemia; s/p Right femoral (profunda) to anterior tibial artery bypass 01/19.
01/22 Bladder scan 411 ml; straight cath x 1.
Cr/GFR trend:
01/20/25 01/21/25 01/22/25
03:17 03:27 05:47
Creatinine 0.8 1.0 1.1 H
eGFR > 60.00 > 60.00 55.07
Please clarify which of the following accurately represents the patient's renal status:
ANGEL
Elevated creatinine only
Other, please specify
Criteria for ANGEL*
1 Increase in serum creatinine by > or = to 0.3 mg/dL (> or = to 26.5 micromol/L) within 48 hours, OR
2 Increase in serum creatinine to > or = to 1.5 times baseline, which is known or presumed to have occurred within 7 days, OR
3 Urine volume < 0.5 nL/kg/hour for six hours
Use of terms such as suspected, likely, concern for, or probable (associated with a specific diagnosis that is being evaluated, monitored, or treated as if it exists) are acceptable and can be coded in the inpatient setting, when documented at the
time of discharge.
Thank you,
ADELINA Case RN
CDI Specialist
available via tiger text
Please use your independent medical judgment in providing your response.
*Source: Kidney Disease: Improving Global Outcomes (KDIGO) 2012
--- NOTE | 2025-01-22 15:52 | TRANSFER ---
Patient transferred to [address] [place] [address] from ICU.She is alert and oriented.The patient reports her pain at an 8 out of 10.She did receive Dilaudid right before she was transferred.All the incisions are open to air without drainage.Neurovascular assessment
within normal limits and ongoing.The patient is in her bed with the call schultz in place.Her is also at the bedside.
[2025-01-23 03:04] VITALS: BP 159/70
[2025-01-23 08:11] VITALS: BP 126/60
--- NOTE | 2025-01-23 08:15 | W.PN.VS ---
Addendum entered and electronically signed by Fidel Fatima III, MD 01/23/25 13:09:
This patient was seen and examined in collaboration with RICHARD Snell. I agree with the history and physical exam as well as the assessment and plan.
Discharge planning
Signed:
Fidel Fatima III, MD
Vascular Surgery
[facility]
Original Note:
Today's Communication / Plan
-
Seen and assessed with Dr. Fatima
Assessment/Plan
-
Assessment: POD#4 Right femoral (profunda) to anterior tibial artery bypass with ipsilateral nonreversed greater saphenous vein conduit
Plan:
Continue ASA/Plavix/Statin
Okay for discharge when SNF bed available/transport set up
Subjective Data
-
Date of Service: January 23, 2025
Patient seen at bedside exam with Dr. Fatima. Patient offers no complaints at this time. Resting comfortably in bed. With at bedside.
Objective Data
-
Vital Signs
Temp Pulse Resp BP Pulse Ox
98.7 F 92 16 126/60 97
01/23/25 08:11 01/23/25 08:11 01/23/25 08:11 01/23/25 08:11 01/23/25 08:11
Intake and Output
01/22/25 01/23/25 01/24/25
06:59 06:59 06:59
Intake Total 480 / 480 480 / 480
Output Total 1025 / 1025 550 / 550
Balance -545 / -545 -70 / -70
Intake:
Oral fluids 480 / 480 480 / 480
Output:
Urine, Voided 1025 / 1025 550 / 550
Other:
How many times incontinent 1 1
MODERATE amount urine
Number of approximated SMALL 1
amounts of urine
Number of approximated MODERATE 1 1
amounts of urine
Lab Results
01/22/25 05:47
01/22/25 05:47
Calcium 9.1 mg/dl (8.4-10.2) 01/22/25 05:47
Phosphorus 2.8 mg/dl (2.5-4.5) 01/21/25 03:27
Magnesium 2.1 mg/dl (1.6-2.3) 01/21/25 03:27
Albumin 3.4 g/dl (3.5-5.0) L 01/21/25 03:27
Physical Exam
-
No apparent distress, resting in bed comfortably
No tachycardia
No dyspnea on room air
ABD non tender, non distended
RLE akil clean, dry, and intact with well-approximated staple line, no evidence hematoma, all compartments soft, right foot warm, + DP doppler signal
[2025-01-23 09:09] VITALS: BMI 24.2
[2025-01-23] MEDS: PLAVIX 75 MG PO (10:06)
[2025-01-23] MEDS: CRESTOR 10 MG PO (10:06)
[2025-01-23] MEDS: FEOSOL 325 MG PO (10:06)
[2025-01-23] MEDS: THERAGRAN 1 TABLET PO (10:06)
[2025-01-23] MEDS: ORETIC 12.5 MG PO (10:06)
[2025-01-23] MEDS: ALDACTONE 50 MG PO (10:06)
[2025-01-23] MEDS: ASPIR LOW (ENTERIC COATED) 81 MG PO (10:06)
[2025-01-23] MEDS: HEPARIN 5000 UNITS SC ×2 (10:07→20:15)
[2025-01-23] MEDS: LOPRESSOR 50 MG PO ×2 (10:07→20:17)
[2025-01-23] MEDS: FLUOCINONIDE 0.05% CREAM 1 APPLIC TOPICAL ×2 (10:23→20:14)
[2025-01-23] MEDS: TRIAMCINOLONE ACETONIDE 0.1% CREAM 1 APPLIC TOPICAL ×2 (10:24→20:14)
--- NOTE | 2025-01-23 10:41 | W.PN.UPDATE ---
Update Note
Progress Note Update
CDI:
Clinical Indicators:
Patient admitted with limb threatening ischemia; s/p Right femoral (profunda) to anterior tibial artery bypass 01/19.
01/22 Bladder scan 411 ml; straight cath x 1.
Cr/GFR trend:
01/20/25 01/21/25 01/22/25
03:17 03:27 05:47
Creatinine 0.8 1.0 1.1 H
eGFR > 60.00 > 60.00 55.07
Please clarify which of the following accurately represents the patient's renal status:
Elevated creatinine only
CDI:
Clinical Indicators:
Patient admitted with limb threatening ischemia; s/p Right femoral (profunda) to anterior tibial artery bypass 01/19.
01/19 Operative report, 'she then developed tissue loss in the right first toe. Chronic nonhealing wound now with concern for worsening.'
01/19 RN skin/wound assessment: Right first toe, ischemic ulcer, POA
Physician documentation of the type and location of wounds is required for compliant documentation. Based on the above clinical findings and your assessment, please provide the following in your progress note:
1. Type (etiology) of ulcer/wound: Arterial (ischemic) ulcer
2. Please indicate the depth/severity:- With fat layer exposed
[2025-01-23] MEDS: TYLENOL 650 MG PO ×2 (10:46→17:49)
[2025-01-23 11:21] VITALS: BP 111/55
--- NOTE | 2025-01-23 11:42 | CM ---
[facility]; auth pending for review
--- NOTE | 2025-01-23 13:00 | PTCARENOTE ---
Discussed with Jeny PEDIAT[employer]IC SOCIAL WORKER wound care. To do: Cleanse with saline, pat dry, apply ordered bacitracin, adaptic, 4x4 and kerlix daily.
--- NOTE | 2025-01-23 15:00 | PTCARENOTE ---
Patient notified RN she believes she ran her RLE against something. RLE incision bleeding from distal area. Cleaned, applied gauze and notified vascular surgery Jeny WYNNE.
[2025-01-23 16:08] VITALS: BP 117/58
--- NOTE | 2025-01-23 16:51 | CM ---
Authorization from [facility] for skilled rehab
Approved start date 01/23/25 NRD 01/27/25
reference # [id number]
Auth # [id number]
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
[2025-01-23 19:40] VITALS: BP 119/56
[2025-01-23 23:07] VITALS: BP 110/52
[2025-01-24 05:00] VITALS: BMI 23.9
--- NOTE | 2025-01-24 07:10 | W.PN.UPDATE ---
Update Note
Progress Note Update
Patient seen at bedside today with Dr. Fatima. Patient offers no complaints this time. No events overnight. Remains stable.
Patient ready for discharge, awaiting bed availability/transportation
[2025-01-24 07:35] VITALS: BP 123/59
[2025-01-24] MEDS: ALDACTONE 50 MG PO (08:48)
[2025-01-24] MEDS: THERAGRAN 1 TABLET PO (08:48)
[2025-01-24] MEDS: CRESTOR 10 MG PO (08:48)
[2025-01-24] MEDS: ORETIC 12.5 MG PO (08:48)
[2025-01-24] MEDS: LOPRESSOR 50 MG PO (08:48)
[2025-01-24] MEDS: FEOSOL 325 MG PO (08:48)
[2025-01-24] MEDS: ASPIR LOW (ENTERIC COATED) 81 MG PO (08:48)
[2025-01-24] MEDS: FLUOCINONIDE 0.05% CREAM 1 APPLIC TOPICAL (08:49)
[2025-01-24] MEDS: PLAVIX 75 MG PO (08:49)
[2025-01-24] MEDS: HEPARIN 5000 UNITS SC (08:49)
[2025-01-24] MEDS: POLYSPORIN OINTMENT 1 APPLIC TOPICAL (08:49)
[2025-01-24] MEDS: TRIAMCINOLONE ACETONIDE 0.1% CREAM 1 APPLIC TOPICAL (08:53)
--- NOTE | 2025-01-24 10:25 | CM ---
Patient has been medically cleared for discharge to [facility] for assisted and rehab services. Transport scheduled for 12:00 Noon. IMM completed.
Nurse to Nurse Report #: [phone]
Fax #: [phone]
[2025-01-24 11:20] VITALS: BP 119/53
== END 2025-01-24 12:41 | DRG 263 ==
LOC: 2 SOUTH 07:33
PROVIDERS: Nurse Practitioner; ADMITTING PHYSICIAN Surgery Vascular Surgery; CONSULT PHYSICIAN Internal Medicine Critical Care Medicine; PRIMARYCARE PHYSICIAN Physician Assistant Medical
PROC: 06BP0ZZ Excision of Right Saphenous Vein, Open Approach (ICD-10-PCS; 2025-01-19)
PROC: 041K09Q Bypass Right Femoral Artery to Lower Extremity Artery with Autologous Venous Tissue, Open Approach (ICD-10-PCS; 2025-01-19)
DX: I70.221 Atherosclerosis of native arteries of extremities with rest pain, right leg (principal); L97.912 Non-pressure chronic ulcer of unspecified part of right lower leg with fat layer exposed; D62 Acute posthemorrhagic anemia; F17.200 Nicotine dependence, unspecified, uncomplicated; E78.00 Pure hypercholesterolemia, unspecified; I10 Essential (primary) hypertension; L40.9 Psoriasis, unspecified; M16.0 Bilateral primary osteoarthritis of hip; Z79.899 Other long term (current) drug therapy
CPT/HCPCS: 35566; 36415; 80048; 82040; 82962; 83735; 84100; 85025; 85027; 85610; 85730; 86850; 86900; 86901; 93005; 97162; 97167; 97530